=== PATIENT | male | born 1965 | race African-American/Black ===

== ENCOUNTER 2016-06-25 12:25 | Emergency (ER) | payer MEDICAID, MEDICARE ==
[~2016-06-25] VITALS: Ht 180.3 cm; Wt 120.0 kg
[~2016-06-25 12:25] MED LIST: DEXI30CA2 PO; GABA800T PO; HUMA100I SC; LANTUS2P SQ; LANTUSP SQ; METH750T2 PO; METO50TA PO; NAPR-576 PO; NEXI20CA PO; eye gtts
[2016-06-25 12:27] VITALS: BP 184/95; PULSE 72; RESP 24; TEMP 98; O2SAT 98
--- NOTE | 2016-06-27 12:24 | EKG ---
Date Performed: 06/25/2016 Time Performed: 13:01:30 PTAGE: 50 years EKG: Sinus rhythm WITH FIRST DEGREE AV BLOCK BORDERLINE LEFT AXIS DEVIATION LEFT VENTRICULAR HYPERTROPHY AND ST-T [place] GE Since previous tracing, no significant change noted ABNORMAL ECG PREVIOUS TRACING : 04/25/2015 22.15 DOCTOR: Sp Cueva Interpretating Date/Time 06/27/2016 12:22:33
== END 2016-06-25 14:27 | disposition left against medical advice (07) ==
LOC: NED 14:00
DX: I44.0 Atrioventricular block, first degree (principal); I51.7 Cardiomegaly
CPT/HCPCS: 93005; 99281

== ENCOUNTER 2016-07-03 14:04 | Emergency (ER) | payer MEDICARE ==
[~2016-07-03] VITALS: Ht 180.3 cm; Wt 120.5 kg
[2016-07-03 14:07] VITALS: BP 162/91; PULSE 64; RESP 20; TEMP 98.3; O2SAT 99
--- NOTE | 2016-07-03 14:14 | PD ---
HPI Chief Complaint: blood pressure Time Seen by Provider: 14:12 Travel History International Travel<30 days: No Contact w/Intl Traveler<30days: No History of Present Illness HPI 50-year-old male with history of DM, HTN, HLD, CKD, MRSA presents to the ED for evaluation of central, sharp chest pain since 9:30 AM. No alleviating or exacerbating factors reported. Accompanied by nausea with a single episode of vomiting and tingling in bilateral hands. Patient denies diaphoresis, palpitations, shortness of breath. Patient states he feels like his blood sugar and blood pressure are very high. He endorses noncompliance with his Lantus and metoprolol since yesterday morning. PFSH Past Medical History Hx Anticoagulant Therapy: No Arthritis: No Asthma: No Autoimmune Disease: No Blood Disorders: No Heart Rhythm Problems: No Cancer: No Cardiac Catheterization: Yes (2010) Cardiovascular Problems: Yes (HTN) High Cholesterol: Yes Chemotherapy: No Chest Pain: Yes Congestive Heart Failure: No COPD: No Cerebrovascular Accident: No Diabetes: Yes Diminished Hearing: No Endocrine: No Gastrointestinal Disorders: No GERD: Yes Glaucoma: No Genitourinary: No Headaches: No Hypertension: Yes Immune Disorder: No Implanted Vascular Access Dvce: No Kidney Stones: No Musculoskeletal: Yes ("back problems" had MRI 08/21/10) Neurologic: Yes (peripheral neuropathy) Psychiatric: No Reproductive: No Respiratory: No Migraines: No Radiation Therapy: No Renal Failure: No Seizures: No Sickle Cell Disease: No Sleep Apnea: No Thyroid Disease: No Past Surgical History Abdominal Surgery: No AICD: No Arteriovenous Shunt: No Cardiac Surgery: Yes (cardiac catheterization 07/31) Coronary Artery Bypass Graft: No Ear Surgery: No Endocrine Surgery: No Eye Surgery: No Genitourinary Surgery: No Hysterectomy: No Insulin Pump: No Joint Replacement: No Neurologic Surgery: No Oral Surgery: No Pacemaker: No Thoracic Surgery: No Other Surgery: Yes (MASS REMOVED FROM ARM) Social History Alcohol Use: No Tobacco Use: No Substance Use: No Allergies-Medications (Allergen,Severity, Reaction): Coded Allergies: Metformin (Verified Allergy, Severe, nausea and vomiting, 07/03/16) *MDRO Multi-Drug Resistant Organism (Verified Adverse Reaction, Unknown, ) 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 Uncoded Allergies: TETININ (Allergy, Unknown, Rash, 04/25/15) ANTIBIOTIC Reported Meds & Prescriptions Reported Meds & Active Scripts Active Robaxin (Methocarbamol) 750 Mg Tab 750 Mg PO Q8HR PRN Naproxen 500 Mg Tab 500 Mg PO Q12HR PRN Reported Nexium (Esomeprazole Magnesium) Esomeprazole Magnesium 20 mg Cap 20 Mg PO DAILY Dexilant 30 mg (Dexlansoprazole) 30 Mg Cap 30 Mg PO DAILY [eye gtts] Humalog 3 ml vial (Insulin Human Lispro) 100 Units/Ml Inj 5 Units SC DAILYAC Gabapentin 800 Mg Tab 800 Mg PO TID Lantus (Insulin Glargine) 100 Units/Ml Inj 38 Unit SQ HS Metoprolol Tartrate 50 mg (Metoprolol Tartrate) 50 Mg Tab 50 Mg PO BID Lantus (Insulin Glargine) 100 Units/Ml Inj 35 Units SQ DAILY Review of Systems Except as stated in HPI: all other systems reviewed are Neg Physical Exam Narrative GENERAL: Well-nourished, well-developed black male in no acute distress. SKIN: Warm and dry. HEAD: Normocephalic. EYES: No scleral icterus. No injection or drainage. NECK: Supple, trachea midline. No JVD or lymphadenopathy. CARDIOVASCULAR: Regular rate and rhythm without murmurs, gallops, or rubs. 2+ DP and radial pulses bilaterally. RESPIRATORY: Breath sounds clear and equal bilaterally. No accessory muscle use. GASTROINTESTINAL: Abdomen soft, non-tender, nondistended. Active bowel sounds. Some voluntary guarding. MUSCULOSKELETAL: No cyanosis, or edema. NEUROLOGICAL: Awake and alert. Cranial nerves II through XII intact. Motor and sensory grossly within normal limits. 5/5 muscle strength in all muscle groups. Normal speech. BACK: Nontender without obvious deformity. No CVA tenderness. Data Data Last Documented VS Vital Signs Date Time Temp Pulse Resp B/P Pulse Ox O2 Delivery O2 Flow Rate FiO2 07/03/16 15:10 64 21 99 Room Air 07/03/16 15:10 153/85 07/03/16 14:07 98.3 Orders Electrocardiogram (07/03/16 14:22) Basic Metabolic Panel (Bmp) (07/03/16 14:22) Ckmb (Isoenzyme) Profile (07/03/16 14:22) Complete Blood Count With Diff (07/03/16 14:22) Magnesium (Mg) (07/03/16 14:22) Prothrombin Time / Inr (Pt) (07/03/16 14:22) Act Partial Throm Time (Ptt) (07/03/16 14:22) Troponin I (07/03/16 14:22) Chest, Single Ap (07/03/16 14:22) Ecg Monitoring (07/03/16 14:22) Bilateral Bp Monitoring (07/03/16 14:22) Iv Access Insert/Monitor (07/03/16 14:22) Oximetry (07/03/16 14:22) Aspirin Chew (Aspirin Chew) (07/03/16 14:30) Sodium Chloride 0.9% Flush (Ns Flush) (07/03/16 14:30) Blood Glucose (07/03/16 14:22) Urinalysis - C+S If Indicated (07/03/16 16:42) CKMB (07/03/16 16:07) CKMB% (07/03/16 16:07) Labs Laboratory Tests Test 07/03/16 07/03/16 14:33 16:07 White Blood Count 5.8 TH/MM3 Red Blood Count 5.38 MIL/MM3 Hemoglobin 11.8 GM/DL Hematocrit 37.5 % Mean Corpuscular Volume 69.6 FL Mean Corpuscular Hemoglobin 22.0 PG Mean Corpuscular Hemoglobin 31.6 % Concent Red Cell Distribution Width 15.1 % Platelet Count 193 TH/MM3 Mean Platelet Volume 9.5 FL Neutrophils (%) (Auto) 69.6 % Lymphocytes (%) (Auto) 21.7 % Monocytes (%) (Auto) 6.9 % Eosinophils (%) (Auto) 1.3 % Basophils (%) (Auto) 0.5 % Neutrophils # (Auto) 4.0 TH/MM3 Lymphocytes # (Auto) 1.3 TH/MM3 Monocytes # (Auto) 0.4 TH/MM3 Eosinophils # (Auto) 0.1 TH/MM3 Basophils # (Auto) 0.0 TH/MM3 CBC Comment AUTO DIFF Differential Comment AUTO DIFF CONFIRMED Platelet Estimate NORMAL Platelet Morphology Comment NORMAL Red Cell Morphology Comment NORMAL Prothrombin Time 11.2 SEC Prothromb Time International 1.0 RATIO Ratio Activated Partial 30.5 SEC Thromboplast Time Sodium Level 135 MEQ/L Potassium Level 5.1 MEQ/L Chloride Level 102 MEQ/L Carbon Dioxide Level 27.9 MEQ/L Anion Gap 5 MEQ/L Blood Urea Nitrogen 24 MG/DL Creatinine 2.06 MG/DL Estimat Glomerular Filtration 42 ML/MIN Rate Random Glucose 362 MG/DL Calcium Level 8.4 MG/DL Magnesium Level 2.0 MG/DL Total Creatine Kinase 215 U/L Creatine Kinase MB 2.1 NG/ML Troponin I 0.03 NG/ML MDM Medical Decision Making Medical Screen Exam Complete: Yes Emergency Medical Condition: Yes Interpretation(s) EKG rate 61, sinus rhythm. SD 200ms, QRS 112ms, QTC 402ms. Borderline LAD, LVH with ST change. Similar to previous EKG of 06/27/16. Reviewed by Dr. Ureña. Differential Diagnosis Chest pain versus ACS versus hyperglycemia versus electrolyte abnormality versus medication noncompliance versus peripheral neuropathy versus other Narrative Course 50-year-old male with history of DM, HTN, HLD, CKD, MRSA presents to the ED for evaluation of central, sharp chest pain since 9:30 AM. No alleviating or exacerbating factors reported. Accompanied by nausea with a single episode of vomiting and tingling in bilateral hands. Patient denies diaphoresis, palpitations, shortness of breath. Patient states he feels like his blood sugar and blood pressure are very high. Vitals reviewed. The patient is hypertensive on presentation. Physical exam reveals a nontoxic-appearing black male in no acute distress. Her auscultation bilaterally. No appreciable M/R/ G. Equal pulses in bilateral extremities. No focal neural deficits. IV was established. Patient was placed on continuous monitoring. ASA administered. Bedside blood glucose 433. CBC: WBC 5.8. Hemoglobin 11.8. INR 1.0. CMP: recollect at 1620. BUN 24, creatinine 2.06, review of the patient's record reveals this is baseline. Glucose 362. Cardiac enzymes: Negative CXR: No acute disease per radiology read. EKG: As above. Review the patient's record reveals he underwent cardiac catheter in 2010 with normal EF and coronary arteries. Stress test performed 06/05/14, negative. I offered the patient admission to the chest pain center which he declined, stating that he was feeling better and would like to follow up with his body former. I discussed the risks of leaving without serial enzymes and EKGs including SC and . I reinforced the importance of compliance with his medications at home. We discussed reasons to return to the ED. He indicated understanding of the instructions, and is amenable to plan of care. He is stable and discharged home. Diagnosis Primary Impression: Chest pain Qualified Code: R07.9 - Chest pain, unspecified type Additional Impressions: Chronic renal insufficiency Qualified Code: N18.9 - Chronic renal insufficiency, unspecified stage Noncompliance with medication regimen Referrals: [facility] Patient Instructions: Chest Pain (ED), General Instructions Additional Instructions: Rest, hydrate. Take all medications as prescribed. Follow-up with your body former this week as discussed. Return to the ED for any urgent or emergent medical condition. Disposition: 01 DISCHARGE HOME Condition: Stable Bouchra Perez Jul 03, 2016 14:14
[2016-07-03 14:21] VITALS: BP 170/91; PULSE 59; RESP 18; O2SAT 96
[2016-07-03] MEDS ORDERED: SODIUM CHLORIDE 0.9% FLUSH 5 ML FLUSH IVF PRN (14:30)
[2016-07-03] MEDS ORDERED: ASPIRIN 81 MG CHEW TAB PO ONE (14:30)
[2016-07-03 14:32] VITALS: BP 170/91; PULSE 61; RESP 18; O2SAT 99
--- NOTE | 2016-07-03 14:58 | RADRPT ---
EXAM DATE/TIME: 07/03/2016 14:44 [facility] COMPARISON: CHEST SINGLE AP, October 13, 2014, 22:57. INDICATIONS : Chest Pain, Short of Breath, Cough. MEDICAL HISTORY : Myocardial infarction. SURGICAL HISTORY : Coronary artery stent. ENCOUNTER: Initial ACUITY: 1 day PAIN SCORE: 7/10 LOCATION: Bilateral chest FINDINGS: A single view of the chest demonstrates the lungs to be symmetrically aerated without evidence of mas s, infiltrate or effusion. The cardiomediastinal contours are unremarkable. Osseous structures are intact. CONCLUSION: No acute disease. Robson Mcwilliams MD on July 03, 2016 at 14:56 Board Certified Radiologist. This report was verified electronically.
[2016-07-03 15:10] VITALS: BP 153/85; PULSE 64; RESP 21; O2SAT 99
[2016-07-03 15:26] LABS: BASOPHIL % 0.5 % (0.0-2.0); EOSINOPHIL # 0.1 TH/MM3 (0-0.4); EOSINOPHIL % 1.3 % (0.0-4.0); HEMATOCRIT 37.5 % (39.0-51.0); LYMPH % 21.7 % (9.0-44.0); LYMPHOCYTE # 1.3 TH/MM3 (1.0-4.8); MEAN CELL VOLUME 69.6 FL (80.0-100.0); MEAN CORPUSCULAR HGB CONC 31.6 % (32.0-36.0); MONO % 6.9 % (0.0-8.0); NEUT % 69.6 % (16.0-70.0); PLATELET COUNT 193 TH/MM3 (150-450); RED BLOOD COUNT 5.38 MIL/MM3 (4.50-5.90); RED CELL DISTRIBUTION WIDTH 15.1 % (11.6-17.2); WHITE BLOOD COUNT 5.8 TH/MM3 (4.0-11.0)
[2016-07-03 15:28] LABS: HEMO FLAGS AUTO DIFF
[2016-07-03 15:37] LABS: APTT (PATIENT) 30.5 SEC (24.3-30.1); PROTHROMBIN TIME - PATIENT 11.2 SEC (9.8-11.6)
[2016-07-03 16:00] LABS: PLATELET ESTIMATE SMEAR NORMAL (NORMAL); PLATELET MORPHOLOGY NORMAL (NORMAL); SCAN/DIFF AUTO DIFF CONFIRMED
[2016-07-03 16:50] LABS: ANION GAP 5 MEQ/L (5-15); BICARBONATE 27.9 MEQ/L (21.0-32.0); BLOOD UREA NITROGEN 24 MG/DL (7-18); CHLORIDE 102 MEQ/L (98-107); GLOMERULAR FILTRATION RATE 42 ML/MIN (>89); POTASSIUM 5.1 MEQ/L (3.5-5.1); SODIUM (NA) 135 MEQ/L (136-145)
[2016-07-03 16:57] LABS: CREATINE KINASE 215 U/L (39-308)
[2016-07-03 17:10] LABS: CKMB 2.1 NG/ML (0.5-3.6)
[2016-07-03 18:01] VITALS: BP 160/92
--- NOTE | 2016-07-04 12:58 | EKG ---
Date Performed: 07/03/2016 Time Performed: 14:28:20 PTAGE: 50 years EKG: Sinus rhythm BORDERLINE LEFT AXIS DEVIATION LEFT VENTRICULAR HYPERTROPHY AND ST-T CHANGE Compared to prior tracin g no significant change ABNORMAL ECG PREVIOUS TRACING : 06/25/2016 13.01 DOCTOR: Ricki Hastings Interpretating Date/Time 07/04/2016 12:54:53
== END 2016-07-03 18:14 | disposition home or self-care (01) ==
LOC: NEPA 14:04
DX: R07.9 Chest pain, unspecified (principal); N18.9 Chronic kidney disease, unspecified; Z91.14 Patient's other noncompliance with medication regimen; R11.2 Nausea with vomiting, unspecified; R20.2 Paresthesia of skin; E78.00 Pure hypercholesterolemia, unspecified; I10 Essential (primary) hypertension; R94.31 Abnormal electrocardiogram [ECG] [EKG]; E11.22 Type 2 diabetes mellitus with diabetic chronic kidney disease
CPT/HCPCS: 71010; 80048; 82550; 82552; 83735; 84484; 85025; 85610; 85730; 93005

== ENCOUNTER 2017-04-12 16:56 | Emergency (ER) | payer MEDICARE ==
[~2017-04-12] VITALS: Ht 180.3 cm; Wt 129.2 kg
[~2017-04-12 16:56] MED LIST changes: +AMLO10TA2 PO; +ATOR20TA15 PO; +BLOOD GLUCOSE T1 TES; +CHLO25TA2 PO; -DEXI30CA2 PO; +GABA300C5 PO; -GABA800T PO; -HUMA100I SC; +HUMA100I3 SQ; +INSU1INJ5 SQ; +LANCETS1 MI1; -LANTUS2P SQ; -LANTUSP SQ; +LEVOTAB PO; +LORA1TAB12 PO; -METH750T2 PO; +METO1TAB9 PO; -METO50TA PO; -NAPR-576 PO; -NEXI20CA PO; +PANT40TA3 PO; +TRAM50TA PO; +VITA500012 PO
[2017-04-12 17:05] VITALS: BP 172/82; PULSE 73; RESP 16; TEMP 98.4; O2SAT 99
[2017-04-12 17:20] LABS: BLOOD, URINE SMALL (NEG); GLUCOSE,URINE NEG (NEG); KETONE, URINE NEG (NEG); NITRITE,URINE NEG (NEG); PH, URINE 5.5 (5.0-8.5)
[2017-04-12 17:25] LABS: METHOD OF COLLECTION CLEAN CATCH; URINE COLOR YELLOW (YELLW/STRAW)
[2017-04-12 17:26] LABS: COMMENT (UR) CULT NOT INDICATED; CULTURE IF INDICATED CULT NOT INDICATED; SQUAMOUS EPITHELIAL CELL URINE 0-5 /hpf (0-5)
--- NOTE | 2017-04-12 17:38 | PD ---
HPI Chief Complaint: Abdominal Pain Time Seen by Provider: 17:25 Travel History International Travel<30 days: No Contact w/Intl Traveler<30days: No Traveled to known affect area: No History of Present Illness HPI 51-year-old male with history of diabetes, hypertension, hypercholesterolemia, here for evaluation of abdominal pain, back pain, neck pain, chest pain. Patient reports that the pain has been going on for the last 2 weeks. He is unable to describe the pain. Pain is moderate, constant, no modifying factors. He denies paresthesias or motor deficits. He denies history of coronary artery disease. States that he had a cardiac catheterization 2 months ago at [facility] and reports that his coronary arteries are free of disease. No history of abdominal surgeries. No trauma. PFSH Past Medical History Hx Anticoagulant Therapy: No Arthritis: No Asthma: No Autoimmune Disease: No Blood Disorders: No Heart Rhythm Problems: No Cancer: No Cardiac Catheterization: Yes (2010) Cardiovascular Problems: Yes (HTN) High Cholesterol: Yes Chemotherapy: No Chest Pain: Yes Congestive Heart Failure: No COPD: No Cerebrovascular Accident: No Diabetes: Yes Patient Takes Glucophage: No Diminished Hearing: No Endocrine: No Gastrointestinal Disorders: No GERD: Yes Glaucoma: No Genitourinary: No Headaches: No Heparin Induced Thrombocytopen: No Hypertension: Yes Immune Disorder: No Implanted Vascular Access Dvce: No Kidney Stones: No Musculoskeletal: Yes ("back problems" had MRI 08/21/10) Neurologic: Yes (peripheral neuropathy) Psychiatric: No Reproductive: No Respiratory: No Migraines: No Radiation Therapy: No Renal Failure: No Seizures: No Sickle Cell Disease: No Sleep Apnea: No Thyroid Disease: No Tetanus Vaccination: Unknown Past Surgical History Abdominal Surgery: No AICD: No Arteriovenous Shunt: No Cardiac Surgery: Yes (cardiac catheterization 07/31) Coronary Artery Bypass Graft: No Ear Surgery: No Endocrine Surgery: No Eye Surgery: No Genitourinary Surgery: No Hysterectomy: No Insulin Pump: No Joint Replacement: No Neurologic Surgery: No Oral Surgery: No Pacemaker: No Thoracic Surgery: No Other Surgery: Yes (MASS REMOVED FROM ARM) Family History Family Myocardial Infarction: No Social History Alcohol Use: No Tobacco Use: No Substance Use: No Allergies-Medications (Allergen,Severity, Reaction): Coded Allergies: metformin (Verified Allergy, Severe, nausea and vomiting, 04/12/17) *MDRO Multi-Drug Resistant Organism (Verified Adverse Reaction, Unknown, 04/12/17) 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 Uncoded Allergies: TETININ (Allergy, Unknown, Rash, 04/25/15) ANTIBIOTIC Reported Meds & Prescriptions Reported Meds & Active Scripts Active Blood Glucose Test Strips Strips Strip Ea .XX ACHS Lancets 1 Mis Mis Box .XX ACHS Levemir Flextouch Pen Inj (Insulin Detemir) 300 unit/3 ML Pen 32 Units SQ BID 30 Days Chlorthalidone 25 Mg Tab 25 Mg PO DAILY Amlodipine (Amlodipine Besylate) 10 Mg Tab 10 Mg PO DAILY Gabapentin 300 Mg Cap 300 Mg PO BID Metoprolol Succinate ER 24 HR (Metoprolol Succinate) 50 Mg Tab 50 Mg PO HS Atorvastatin (Atorvastatin Calcium) 20 Mg Tab 20 Mg PO HS Ergocalciferol 50,000 Unit Cap 50,000 Units PO Q7D Levocetirizine 5 Mg Tab 5 Mg PO DAILY Humalog Kwikpen Pen Inj (Insulin Lispro (Human) Inj) 300 Unit/3 Ml Pen 12 Units SQ ACHS 30 Days Pantoprazole (Pantoprazole Sodium) 40 Mg Tab 40 Mg PO DAILY Reported Tramadol (Tramadol HCl) 50 Mg Tab 50 Mg PO Q4H PRN Review of Systems Except as stated in HPI: all other systems reviewed are Neg Physical Exam Narrative GENERAL: Well-developed, well-nourished, comfortable, no apparent distress. Ambulated to the restroom without difficulty and without assistance. SKIN: Focused skin assessment warm/dry. HEAD: Atraumatic. Normocephalic. EYES: Pupils equal and round. No scleral icterus. No injection or drainage. ENT: Mucous membranes pink and moist. NECK: Trachea midline. No JVD. CARDIOVASCULAR: Regular rate and rhythm. Distal pulses brisk and equal bilaterally. RESPIRATORY: No accessory muscle use. Clear to auscultation. Breath sounds equal bilaterally. GASTROINTESTINAL: Abdomen soft, non-tender, nondistended. MUSCULOSKELETAL: No obvious deformities. No clubbing. No cyanosis. No edema. NEUROLOGICAL: Awake and alert. No obvious cranial nerve deficits. Motor grossly within normal limits. Normal speech. PSYCHIATRIC: Appropriate mood and affect; insight and judgment normal. Data Data Last Documented VS Vital Signs Date Time Temp Pulse Resp B/P (MAP) Pulse Ox O2 Delivery O2 Flow Rate FiO2 04/12/17 19:08 78 16 166/96 (119) 99 Nasal Cannula 2.00 04/12/17 17:05 98.4 Orders Orders Urinalysis - C+S If Indicated (04/12/17 17:08) Ckmb (Isoenzyme) Profile (04/12/17 17:32) Complete Blood Count With Diff (04/12/17 17:32) Comprehensive Metabolic Panel (04/12/17 17:32) Magnesium (Mg) (04/12/17 17:32) Prothrombin Time / Inr (Pt) (04/12/17 17:32) Act Partial Throm Time (Ptt) (04/12/17 17:32) Troponin I (04/12/17 17:32) Chest, Single Ap (04/12/17 17:32) Ecg Monitoring (04/12/17 17:32) Bilateral Bp Monitoring (04/12/17 17:32) Iv Access Insert/Monitor (04/12/17 17:32) Oximetry (04/12/17 17:32) Oxygen Administration (04/12/17 17:32) Sodium Chloride 0.9% Flush (Ns Flush) (04/12/17 17:45) CKMB (04/12/17 17:35) CKMB% (04/12/17 17:35) Tramadol (Ultram) (04/12/17 18:30) Labs Laboratory Tests Test 04/12/17 17:12 04/12/17 17:35 Urine Collection Type CLEAN CATCH Urine Color YELLOW Urine Turbidity CLEAR Urine pH 5.5 Urine Specific [place] 1.015 Urine Protein 30 mg/dL Urine Glucose (UA) NEG mg/dL Urine Ketones NEG mg/dL Urine Occult Blood SMALL Urine Nitrite NEG Urine Bilirubin NEG Urine Leukocyte Esterase NEG Urine RBC 4-9 /hpf Urine Squamous Epithelial Cells 0-5 /hpf Microscopic Urinalysis Comment CULT NOT INDICATED Urine Collection Time 17:12 White Blood Count 6.7 TH/MM3 Red Blood Count 5.32 MIL/MM3 Hemoglobin 11.6 GM/DL Hematocrit 37.6 % Mean Corpuscular Volume 70.7 FL Mean Corpuscular Hemoglobin 21.8 PG Mean Corpuscular Hemoglobin Concent 30.8 % Red Cell Distribution Width 14.5 % Platelet Count 233 TH/MM3 Mean Platelet Volume 8.6 FL Neutrophils (%) (Auto) 69.5 % Lymphocytes (%) (Auto) 23.4 % Monocytes (%) (Auto) 5.0 % Eosinophils (%) (Auto) 1.5 % Basophils (%) (Auto) 0.6 % Neutrophils # (Auto) 4.7 TH/MM3 Lymphocytes # (Auto) 1.6 TH/MM3 Monocytes # (Auto) 0.3 TH/MM3 Eosinophils # (Auto) 0.1 TH/MM3 Basophils # (Auto) 0.0 TH/MM3 CBC Comment DIFF FINAL Differential Comment Prothrombin Time 11.2 SEC Prothromb Time International Ratio 1.0 RATIO Activated Partial Thromboplast Time 31.8 SEC Blood Urea Nitrogen 33 MG/DL Creatinine 2.10 MG/DL Random Glucose 181 MG/DL Total Protein 7.5 GM/DL Albumin 3.3 GM/DL Calcium Level 8.2 MG/DL Magnesium Level 2.2 MG/DL Alkaline Phosphatase 91 U/L Aspartate Amino Transf (AST/SGOT) 15 U/L Alanine Aminotransferase (ALT/SGPT) 23 U/L Total Bilirubin 0.2 MG/DL Sodium Level 140 MEQ/L Potassium Level 4.2 MEQ/L Chloride Level 108 MEQ/L Carbon Dioxide Level 25.3 MEQ/L Anion Gap 7 MEQ/L Estimat Glomerular Filtration Rate 41 ML/MIN Total Creatine Kinase 246 U/L Creatine Kinase MB 3.2 NG/ML Troponin I 0.03 NG/ML [facility] Medical Decision Making Medical Screen Exam Complete: Yes Emergency Medical Condition: Yes Medical Record Reviewed: Yes Interpretation(s) EKG: Sinus, rate 72, leftward axis, LVH, no acute ischemic abnormality. Differential Diagnosis Dissection, ACS, musculoskeletal pain, Narrative Course Vital signs reviewed. CBC: WBC 6.7, hemoglobin 11.6, hematocrit 37.6, platelets 233. CMP is remarkable for BUN 33, creatinine 2.1, GFR 41 which is around his baseline. Troponin is 0.03 which is around his baseline is likely secondary to chronic renal insufficiency. UA shows small occult blood, 49 RBCs, 30 protein. I was contacted by the computer technician who spoke with the on-call radiologist was recommending MRI instead of CT because of the patient's GFR. Patient was made aware of this. 7:50 PM: The patient has me that he no longer wishes to wait for MRI. He states that he has an MRI ordered by his primary care physician in the upcoming weeks. I explained to him that I am concerned for possible aortic dissection and that this could be fatal if not treated correctly. He understands. He has the capacity to leave AMA. He understands that there are risks of leaving AMA including but not limited to and permanent disability. He was told that he could return to the emergency department at any time and should return for any concerning symptoms. He was also advised to follow-up with his primary care physician in the next 1-2 days. He was informed on when to return to the emergency Department sooner. He verbalizes understanding and agreement with plan. AMA: The risks of leaving against medical advice without further evaluation treatment were discussed with the patient. These risks include cardiac dysfunction, cardiac dysrhythmia, possible heart attack, possible stroke or . The patient indicated understanding of these risks and appeared to have the capacity to make this decision. Diagnosis Primary Impression: Left against medical advice Additional Impressions: Back pain Qualified Codes: M54.9 - Dorsalgia, unspecified Neck pain Abdominal pain Qualified Codes: R10.9 - Unspecified abdominal pain Microscopic hematuria Referrals: Primary Care Physician 1 day Additional Instructions: Follow-up with your primary care physician in the next 1-2 days. Return to the emergency department for worsening symptoms or any other concerns. Disposition: 07 AGAINST MEDICAL ADVICE Condition: Stable Regan Forde MD Apr 12, 2017 17:38
[2017-04-12] MEDS ORDERED: SODIUM CHLORIDE 0.9% FLUSH 10 ML FLUSH IVF PRN (17:45)
[2017-04-12 17:50] LABS: AUTOMATED NEUTROPHIL # 4.7 TH/MM3 (1.8-7.7); BASOPHIL % 0.6 % (0.0-2.0); EOSINOPHIL # 0.1 TH/MM3 (0-0.4); EOSINOPHIL % 1.5 % (0.0-4.0); HEMATOCRIT 37.6 % (39.0-51.0); LYMPH % 23.4 % (9.0-44.0); LYMPHOCYTE # 1.6 TH/MM3 (1.0-4.8); MEAN CELL VOLUME 70.7 FL (80.0-100.0); MEAN CORPUSCULAR HEMOGLOBIN 21.8 PG (27.0-34.0); MEAN CORPUSCULAR HGB CONC 30.8 % (32.0-36.0); NEUT % 69.5 % (16.0-70.0); PLATELET COUNT 233 TH/MM3 (150-450); RED BLOOD COUNT 5.32 MIL/MM3 (4.50-5.90); RED CELL DISTRIBUTION WIDTH 14.5 % (11.6-17.2); WHITE BLOOD COUNT 6.7 TH/MM3 (4.0-11.0)
[2017-04-12 17:55] VITALS: RESP 16; O2SAT 98
[2017-04-12 17:56] VITALS: BP_SYST 183; BP_SYST 208; BP_DIAS 101; BP_DIAS 99; PULSE 71; RESP 16; O2SAT 100
[2017-04-12 17:56] LABS: CHLORIDE 108 MEQ/L (98-107); POTASSIUM 4.2 MEQ/L (3.5-5.1); SODIUM (NA) 140 MEQ/L (136-145)
[2017-04-12 18:00] LABS: ANION GAP 7 MEQ/L (5-15); BICARBONATE 25.3 MEQ/L (21.0-32.0); BLOOD UREA NITROGEN 33 MG/DL (7-18); MAGNESIUM 2.2 MG/DL (1.5-2.5)
[2017-04-12 18:02] LABS: APTT (PATIENT) 31.8 SEC (24.3-30.1); PROTHROMBIN TIME - PATIENT 11.2 SEC (9.8-11.6)
[2017-04-12 18:03] LABS: ALT (GPT) 23 U/L (12-78); AST (GOT) 15 U/L (15-37); GLOMERULAR FILTRATION RATE 41 ML/MIN (>89)
[2017-04-12 18:05] LABS: TOTAL BILIRUBIN ADULT 0.2 MG/DL (0.2-1.0)
[2017-04-12 18:06] LABS: ALKALINE PHOSPHATASE 91 U/L (45-117); CREATINE KINASE 246 U/L (39-308)
[2017-04-12 18:12] LABS: HEMO FLAGS DIFF FINAL
[2017-04-12 18:18] LABS: CKMB 3.2 NG/ML (0.5-3.6)
--- NOTE | 2017-04-12 18:23 | RADRPT ---
EXAM DATE/TIME: 04/12/2017 18:08 [facility] COMPARISON: CHEST SINGLE AP, July 03, 2016, 14:44. INDICATIONS : Epigastric pain on and off for several weeks. MEDICAL HISTORY : Hypertension. Gastroesophageal reflux disease. Diabetes. Peripheral neuropathy. SURGICAL HISTORY : None. ENCOUNTER: Initial ACUITY: 3 weeks PAIN SCORE: 7/10 LOCATION: Bilateral chest FINDINGS: A single view of the chest demonstrates the lungs to be symmetrically aerated without evidence of mas s, infiltrate or effusion. The cardiomediastinal contours are unremarkable. Osseous structures are intact. CONCLUSION: No acute disease. Caio Majano Jr., MD on April 12, 2017 at 18:21 Board Certified Radiologist. This report was verified electronically.
[2017-04-12] MEDS ORDERED: traMADol HCL 50 MG TAB PO ONE (18:30)
[2017-04-12 19:08] VITALS: BP 166/96; PULSE 78; RESP 16; O2SAT 99
--- NOTE | 2017-04-13 09:48 | EKG ---
Date Performed: 04/12/2017 Time Performed: 17:25:22 PTAGE: 51 years EKG: Sinus rhythm BORDERLINE LEFT AXIS DEVIATION LEFT VENTRICULAR HYPERTROPHY AND ST-T CHANGE ABNORMAL ECG PREVIOUS TRACING : 07/03/2016 14.28 DOCTOR: Joseph Martinez Interpretating Date/Time 04/13/2017 09:46:56
[2017-04-18] MEDS ORDERED: BLOOD GLUCOSE T1 TES (10:11)
[2017-04-18] MEDS ORDERED: LANCETS1 MI1 (10:11)
[2017-04-18] MEDS ORDERED: BLOOD GLUCOSE M1 KIT (10:11)
[2017-04-18] MEDS ORDERED: RANI150T PO (10:32)
[2017-04-20] MEDS ORDERED: HUMA100I3 SQ (17:04)
[2017-04-20] MEDS ORDERED: INSU1INJ5 SQ (17:04)
== END 2017-04-12 20:11 | disposition left against medical advice (07) ==
LOC: PHED 16:56
DX: M54.2 Cervicalgia (principal); R31.29 Other microscopic hematuria; R07.9 Chest pain, unspecified; E11.9 Type 2 diabetes mellitus without complications; E78.00 Pure hypercholesterolemia, unspecified; I10 Essential (primary) hypertension; Z79.4 Long term (current) use of insulin; Z79.899 Other long term (current) drug therapy
CPT/HCPCS: 71010; 80053; 81001; 82550; 82552; 83735; 84484; 85025; 85610; 85730; 93005; 99285

== ENCOUNTER 2017-04-25 14:30 | Emergency (ER) | payer MEDICARE ==
[~2017-04-25 14:30] MED LIST changes: +BLOOD GLUCOSE M1 KIT; -LORA1TAB12 PO; +RANI150T PO; -eye gtts
[2017-04-25 14:58] VITALS: BP 190/110; PULSE 75; RESP 20; TEMP 98.4; O2SAT 100
[2017-04-25] MEDS ORDERED: ASPIRIN 81 MG CHEW TAB CHEW ONE (15:15)
[2017-04-25] MEDS ORDERED: SODIUM CHLORIDE 0.9% FLUSH 10 ML FLUSH IVF PRN (15:30)
[2017-04-25] MEDS ORDERED: MORPHINE SULFATE 4 MG/ML INJ IV PUSH ONE (15:30)
[2017-04-25] MEDS ORDERED: NITROGLYCERIN 2% OINT 1 GM PACKET TOP ONE (15:30)
[2017-04-25] MEDS ORDERED: ONDANSETRON HCL 4 MG/2 ML VIAL IV PUSH ONE (15:30)
[2017-04-25 15:38] VITALS: O2SAT 97
--- NOTE | 2017-04-25 15:45 | PD ---
HPI . Chest pain Chief Complaint: Chest Pain Time Seen by Provider: 14:47 Travel History International Travel<30 days: No Contact w/Intl Traveler<30days: No Traveled to known affect area: No History of Present Illness HPI Patient presents with a chief complaint of chest pain. It is located in the left side of the chest and is associated with left arm and left leg pain. I asked him when this started he states "it's been hurting." He states that it was worse today. He states that the pain comes and goes. When asked to describe the quality of the pain he states that it is "excruciating." Severity is 10/10. He reports no modifiers. He reports shortness of breath, daily nausea and vomiting and diaphoresis. PFSH Past Medical History Hx Anticoagulant Therapy: No Arthritis: No Asthma: No Autoimmune Disease: No Blood Disorders: No Heart Rhythm Problems: No Cancer: No Cardiac Catheterization: Yes (2010) Cardiovascular Problems: Yes (HTN) High Cholesterol: Yes Chemotherapy: No Chest Pain: Yes Congestive Heart Failure: No COPD: No Cerebrovascular Accident: No Diabetes: Yes Patient Takes Glucophage: No Diminished Hearing: No Endocrine: No Gastrointestinal Disorders: No GERD: Yes Glaucoma: No Genitourinary: No Headaches: No Heparin Induced Thrombocytopen: No Hypertension: Yes Immune Disorder: No Implanted Vascular Access Dvce: No Kidney Stones: No Musculoskeletal: Yes ("back problems" had MRI 08/21/10) Neurologic: Yes (peripheral neuropathy) Psychiatric: No Reproductive: No Respiratory: No Migraines: No Radiation Therapy: No Renal Failure: No Seizures: No Sickle Cell Disease: No Sleep Apnea: No Thyroid Disease: No Tetanus Vaccination: Unknown Influenza Vaccination: Yes ?: Not Past Surgical History Abdominal Surgery: No AICD: No Arteriovenous Shunt: No Cardiac Surgery: Yes (cardiac catheterization 07/31) Coronary Artery Bypass Graft: No Ear Surgery: No Endocrine Surgery: No Eye Surgery: No Genitourinary Surgery: No Hysterectomy: No Insulin Pump: No Joint Replacement: No Neurologic Surgery: No Oral Surgery: No Pacemaker: No Thoracic Surgery: No Other Surgery: Yes (MASS REMOVED FROM ARM) Social History Alcohol Use: No Tobacco Use: No Substance Use: No Allergies-Medications (Allergen,Severity, Reaction): Coded Allergies: metformin (Verified Allergy, Severe, nausea and vomiting, 04/18/17) *MDRO Multi-Drug Resistant Organism (Verified Adverse Reaction, Unknown, 04/18/17) 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 Uncoded Allergies: TETININ (Allergy, Unknown, Rash, 04/25/15) ANTIBIOTIC Reported Meds & Prescriptions Reported Meds & Active Scripts Active Levemir Flextouch Pen Inj (Insulin Detemir) 300 unit/3 ML Pen 32 Units SQ BID 30 Days Humalog Kwikpen Pen Inj (Insulin Lispro (Human) Inj) 300 Unit/3 Ml Pen 12 Units SQ ACHS 30 Days Ranitidine (Ranitidine HCl) 150 Mg Tab 150 Mg PO HS Blood Glucose Monitoring W/Device (Device) 1 Kit Kit Kit .XX DIRECTED Blood Glucose Test Strips Strips Strip Ea .XX ACHS Lancets 1 Mis Mis Box .XX ACHS Chlorthalidone 25 Mg Tab 25 Mg PO DAILY Amlodipine (Amlodipine Besylate) 10 Mg Tab 10 Mg PO DAILY Gabapentin 300 Mg Cap 300 Mg PO BID Metoprolol Succinate ER 24 HR (Metoprolol Succinate) 50 Mg Tab 50 Mg PO HS Atorvastatin (Atorvastatin Calcium) 20 Mg Tab 20 Mg PO HS Ergocalciferol 50,000 Unit Cap 50,000 Units PO Q7D Levocetirizine 5 Mg Tab 5 Mg PO DAILY Pantoprazole (Pantoprazole Sodium) 40 Mg Tab 40 Mg PO DAILY Reported Tramadol (Tramadol HCl) 50 Mg Tab 50 Mg PO Q4H PRN Review of Systems Except as stated in HPI: all other systems reviewed are Neg General / Constitutional: Positive: Other (diaphoresis) Cardiovascular: Positive: Chest Pain or Discomfort Respiratory: Positive: Shortness of Breath Gastrointestinal: Positive: Nausea Physical Exam Narrative GENERAL: Patient is awake and alert and does not appear to be in any distress. SKIN: warm/dry. HEAD: Normocephalic. Atraumatic. EYES: Pupils equal and round. No scleral icterus. No injection or drainage. ENT: No nasal bleeding or discharge. Mucous membranes pink and moist. NECK: Trachea midline. Full range of motion without pain.. CARDIOVASCULAR: Regular rate and rhythm. Heart sounds are normal. RESPIRATORY: No accessory muscle use. Clear to auscultation. Breath sounds equal bilaterally. Chest wall is nontender to palpation. GASTROINTESTINAL: Abdomen soft. Nontender. Bowel sounds present. Nondistended. : MUSCULOSKELETAL: No obvious deformities. No edema and no calf tenderness. NEUROLOGICAL: Awake and alert. No obvious cranial nerve deficits. Motor grossly within normal limits. Normal speech. PSYCHIATRIC: Appropriate mood and affect; insight and judgment normal. Data Data Last Documented VS Vital Signs Date Time Temp Pulse Resp B/P (MAP) Pulse Ox O2 Delivery O2 Flow Rate FiO2 04/25/17 16:10 65 16 140/89 (106) 100 Room Air 04/25/17 14:58 98.4 Orders Orders Electrocardiogram (04/25/17 14:40) Aspirin Chew (Aspirin Chew) (04/25/17 15:15) Basic Metabolic Panel (Bmp) (04/25/17 15:23) Complete Blood Count With Diff (04/25/17 15:23) Magnesium (Mg) (04/25/17 15:23) Troponin I (04/25/17 15:23) Chest, Single Ap (04/25/17 15:23) Ecg Monitoring (04/25/17 15:23) Iv Access Insert/Monitor (04/25/17 15:23) Oximetry (04/25/17 15:23) Morphine Inj (Morphine Inj) (04/25/17 15:30) Nitroglycerin 2% Oint (Nitroglycerin 2% (04/25/17 15:30) Sodium Chloride 0.9% Flush (Ns Flush) (04/25/17 15:30) Ondansetron Inj (Zofran Inj) (04/25/17 15:30) Labs Laboratory Tests Test 04/25/17 15:35 White Blood Count 6.1 TH/MM3 Red Blood Count 5.54 MIL/MM3 Hemoglobin 12.1 GM/DL Hematocrit 38.9 % Mean Corpuscular Volume 70.3 FL Mean Corpuscular Hemoglobin 21.8 PG Mean Corpuscular Hemoglobin Concent 31.0 % Red Cell Distribution Width 13.9 % Platelet Count 219 TH/MM3 Mean Platelet Volume 8.8 FL Neutrophils (%) (Auto) 68.0 % Lymphocytes (%) (Auto) 20.9 % Monocytes (%) (Auto) 9.1 % Eosinophils (%) (Auto) 1.7 % Basophils (%) (Auto) 0.3 % Neutrophils # (Auto) 4.1 TH/MM3 Lymphocytes # (Auto) 1.3 TH/MM3 Monocytes # (Auto) 0.6 TH/MM3 Eosinophils # (Auto) 0.1 TH/MM3 Basophils # (Auto) 0.0 TH/MM3 CBC Comment AUTO DIFF Differential Comment AUTO DIFF CONFIRMED Tear Drop Cells 1+ Ovalocytes 1+ Blood Urea Nitrogen 36 MG/DL Creatinine 2.40 MG/DL Random Glucose 172 MG/DL Calcium Level 8.9 MG/DL Magnesium Level 2.4 MG/DL Sodium Level 139 MEQ/L Potassium Level 5.3 MEQ/L Chloride Level 106 MEQ/L Carbon Dioxide Level 26.7 MEQ/L Anion Gap 6 MEQ/L Estimat Glomerular Filtration Rate 35 ML/MIN Troponin I 0.03 NG/ML MDM Medical Decision Making Medical Screen Exam Complete: Yes Emergency Medical Condition: Yes Medical Record Reviewed: Yes (in 2014 the patient had a negative Lexiscan stress test. His ejection fraction by myocardial perfusion scan was estimated at 48%.) Interpretation(s) EKG shows a sinus rhythm with no ST segment elevation or depression. Differential Diagnosis Differential diagnosis of chest pain includes but is not limited to musculoskeletal pain, pulmonary embolism, acute coronary syndrome, pneumonia, pleurisy Narrative Course Patient presented with chief complaint of chest pain. This is not a new problem for him. I discussed initial evaluation in the emergency department with subsequent admission to the chest pain center. The patient reports a negative cardiac catheterization done this summer at [facility]. He is not really interested in admission chest pain center. CBC & BMP Diagram 04/25/17 15:35 Calcium Level 8.9, Magnesium Level 2.4 trop 0.03 His labs are not appreciably changed from previous. Last Impressions Chest X-Ray 04/25/17 1523 Signed Impressions: Service Date/Time: Tuesday, April 25, 2017 15:33 - CONCLUSION: Mildly enlarged cardiac silhouette. Otherwise, no acute finding is identified. Jameson Guerra MD This patient has ongoing chest pain. No acute problem has been identified today. He has had a recent cardiac catheterization which is reportedly normal per the patient. I will discharge him to home. Diagnosis Primary Impression: Chest pain Qualified Codes: R07.9 - Chest pain, unspecified Patient Instructions: Chest Pain (DC), General Instructions Disposition: 01 DISCHARGE HOME Condition: Stable Elsi Buckner MD Apr 25, 2017 15:45
--- NOTE | 2017-04-25 15:51 | RADRPT ---
EXAM DATE/TIME: 04/25/2017 15:33 [facility] COMPARISON: CHEST PA & LAT, April 25, 2015, 23:10. CHEST SINGLE AP, July 03, 2016, 14:44. CHEST SINGLE A P, April 12, 2017, 18:08. INDICATIONS : Chest pain. MEDICAL HISTORY : Hypertension. Gastroesophageal reflux disease. Diabetes. Peripheral neuropathy. SURGICAL HISTORY : Cardiac catheterization. ENCOUNTER: Initial ACUITY: 2 weeks PAIN SCORE: 4/10 LOCATION: Bilateral chest FINDINGS: Portable AP view of the chest demonstrates a mildly enlarged cardiac silhouette, stable from the prio r study. No effusion, consolidation, or pneumothorax is present. The bones and soft tissues demonstra te no acute finding. CONCLUSION: Mildly enlarged cardiac silhouette. Otherwise, no acute finding is identified. Jameson Guerra MD on April 25, 2017 at 15:45 Board Certified Radiologist. This report was verified electronically.
[2017-04-25 15:57] LABS: AUTOMATED NEUTROPHIL # 4.1 TH/MM3 (1.8-7.7); BASOPHIL % 0.3 % (0.0-2.0); EOSINOPHIL # 0.1 TH/MM3 (0-0.4); EOSINOPHIL % 1.7 % (0.0-4.0); HEMATOCRIT 38.9 % (39.0-51.0); LYMPH % 20.9 % (9.0-44.0); LYMPHOCYTE # 1.3 TH/MM3 (1.0-4.8); MEAN CELL VOLUME 70.3 FL (80.0-100.0); MEAN CORPUSCULAR HEMOGLOBIN 21.8 PG (27.0-34.0); MONO % 9.1 % (0.0-8.0); PLATELET COUNT 219 TH/MM3 (150-450); RED BLOOD COUNT 5.54 MIL/MM3 (4.50-5.90); RED CELL DISTRIBUTION WIDTH 13.9 % (11.6-17.2); WHITE BLOOD COUNT 6.1 TH/MM3 (4.0-11.0)
[2017-04-25 16:01] LABS: HEMO FLAGS AUTO DIFF
[2017-04-25 16:06] LABS: BICARBONATE 26.7 MEQ/L (21.0-32.0); MAGNESIUM 2.4 MG/DL (1.5-2.5)
[2017-04-25 16:10] VITALS: BP 140/89; PULSE 65; RESP 16; O2SAT 100
[2017-04-25 16:20] LABS: POTASSIUM 5.3 MEQ/L (3.5-5.1)
[2017-04-25 16:44] LABS: OVALOCYTES 1+ (NORMAL); SCAN/DIFF AUTO DIFF CONFIRMED; TEARDROP RBCS 1+ (NORMAL)
[2017-04-25 17:12] VITALS: BP 148/87; PULSE 68; RESP 16; O2SAT 100
--- NOTE | 2017-04-26 14:34 | EKG ---
Date Performed: 04/25/2017 Time Performed: 14:40:34 PTAGE: 51 years EKG: Sinus rhythm BORDERLINE LEFT AXIS DEVIATION LEFT VENTRICULAR HYPERTROPHY AND ST-T CHANGE ABNORMAL ECG Compared to prior tracing no significant change PREVIOUS TRACING : 04/12/2017 17.25 DOCTOR: Angella Jeronimo Interpretating Date/Time 04/26/2017 14:29:04
== END 2017-04-25 17:30 | disposition home or self-care (01) ==
LOC: PHED 14:30
DX: R07.9 Chest pain, unspecified (principal); E11.9 Type 2 diabetes mellitus without complications; E78.00 Pure hypercholesterolemia, unspecified; I10 Essential (primary) hypertension; Z79.4 Long term (current) use of insulin; Z79.899 Other long term (current) drug therapy
CPT/HCPCS: 71010; 80048; 83735; 84484; 85025; 93005; 96374; 96375; 99285; J2270; J2405

== ENCOUNTER 2017-04-30 16:39 | Emergency (ER) | payer MEDICARE ==
[~2017-04-30] VITALS: Ht 180.3 cm; Wt 133.5 kg
[2017-04-30 17:06] VITALS: BP 164/88; PULSE 76; RESP 16; TEMP 98.9; O2SAT 97
[2017-04-30] MEDS ORDERED: CLIN300C5 PO (18:01)
--- NOTE | 2017-04-30 18:04 | PD ---
HPI Chief Complaint: Skin Problem Time Seen by Provider: 17:24 Travel History International Travel<30 days: No Contact w/Intl Traveler<30days: No Traveled to known affect area: No History of Present Illness HPI 51-year-old male with small wound to the right great toe caused by a shoe rubbing on the area. Wound has been present for 2 weeks. He reports increasing pain over the last several days. He denies fever or chills. Symptoms severity is mild. PFSH Past Medical History Hx Anticoagulant Therapy: No Arthritis: No Asthma: No Autoimmune Disease: No Blood Disorders: No Heart Rhythm Problems: No Cancer: No Cardiac Catheterization: Yes (2010) Cardiovascular Problems: Yes (htn on meds) High Cholesterol: Yes Chemotherapy: No Chest Pain: Yes Congestive Heart Failure: No COPD: No Cerebrovascular Accident: No Diabetes: Yes (type 2) Patient Takes Glucophage: No Diminished Hearing: No Endocrine: No Gastrointestinal Disorders: No GERD: Yes Glaucoma: No Genitourinary: No Headaches: No Heparin Induced Thrombocytopen: No Hypertension: Yes Immune Disorder: No Implanted Vascular Access Dvce: No Kidney Stones: No Musculoskeletal: Yes ("back problems" had MRI 08/21/10) Neurologic: Yes (peripheral neuropathy) Psychiatric: No Reproductive: No Respiratory: No Migraines: No Radiation Therapy: No Renal Failure: No Seizures: No Sickle Cell Disease: No Sleep Apnea: No Thyroid Disease: No Tetanus Vaccination: Unknown Influenza Vaccination: Yes Past Surgical History Abdominal Surgery: No AICD: No Arteriovenous Shunt: No Cardiac Surgery: Yes (cardiac catheterization 07/31) Coronary Artery Bypass Graft: No Ear Surgery: No Endocrine Surgery: No Eye Surgery: No Genitourinary Surgery: No Hysterectomy: No Insulin Pump: No Joint Replacement: No Neurologic Surgery: No Oral Surgery: No Pacemaker: No Thoracic Surgery: No Other Surgery: Yes (MASS REMOVED FROM ARM) Social History Alcohol Use: No Tobacco Use: No Substance Use: No Allergies-Medications (Allergen,Severity, Reaction): Coded Allergies: metformin (Verified Allergy, Severe, nausea and vomiting, 04/30/17) *MDRO Multi-Drug Resistant Organism (Verified Adverse Reaction, Unknown, 04/30/17) 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 Uncoded Allergies: TETININ (Allergy, Unknown, Rash, 04/30/17) .ANTIBIOTIC Reported Meds & Prescriptions Reported Meds & Active Scripts Active Clindamycin (Clindamycin HCl) 300 Mg Cap 300 Mg PO TID 7 Days Levemir Flextouch Pen Inj (Insulin Detemir) 300 unit/3 ML Pen 32 Units SQ BID 30 Days Humalog Kwikpen Pen Inj (Insulin Lispro (Human) Inj) 300 Unit/3 Ml Pen 12 Units SQ ACHS 30 Days Ranitidine (Ranitidine HCl) 150 Mg Tab 150 Mg PO HS Blood Glucose Monitoring W/Device (Device) 1 Kit Kit Kit .XX DIRECTED Blood Glucose Test Strips Strips Strip Ea .XX ACHS Lancets 1 Mis Mis Box .XX ACHS Chlorthalidone 25 Mg Tab 25 Mg PO DAILY Amlodipine (Amlodipine Besylate) 10 Mg Tab 10 Mg PO DAILY Gabapentin 300 Mg Cap 300 Mg PO BID Metoprolol Succinate ER 24 HR (Metoprolol Succinate) 50 Mg Tab 50 Mg PO HS Atorvastatin (Atorvastatin Calcium) 20 Mg Tab 20 Mg PO HS Ergocalciferol 50,000 Unit Cap 50,000 Units PO Q7D Levocetirizine 5 Mg Tab 5 Mg PO DAILY Pantoprazole (Pantoprazole Sodium) 40 Mg Tab 40 Mg PO DAILY Review of Systems Except as stated in HPI: all other systems reviewed are Neg General / Constitutional: No: Fever Physical Exam Narrative GENERAL: Alert well-appearing male in no distress SKIN: Warm and dry. HEAD: Normocephalic. EYES: No scleral icterus. No injection or drainage. NECK: Supple, trachea midline. MUSCULOSKELETAL: No cyanosis, or edema. Left foot: 0.5 cm circular shallow wound to the great toe medial aspect. Mild erythema. No bony tenderness of the toe. No purulent drainage. Data Data Last Documented VS Vital Signs Date Time Temp Pulse Resp B/P (MAP) Pulse Ox O2 Delivery O2 Flow Rate FiO2 04/30/17 17:06 98.9 76 16 164/88 (113) 97 MDM Medical Decision Making Medical Screen Exam Complete: Yes Emergency Medical Condition: Yes Differential Diagnosis Abscess, cellulitis, osteomyelitis Narrative Course 51-year-old male with small 0.5 cm wound to the right great toe dorsal aspect caused by a shoe rubbing on the area. Wound has been present for 2 weeks. He reports increasing pain over the last several days. He denies fever or chills. On exam he has no bony tenderness. The pain is isolated to the small wound. I do not suspect osteomyelitis at this time. Patient is a diabetic with peripheral neuropathy. 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 He will be put on antibiotics and instructed to check the wound daily. Stop wearing the shoes the cause the wound. Wear shoes at all times while walking around the house or outside. And to follow-up with his automobile mechanic apprentice Diagnosis Primary Impression: Wound infection Referrals: [facility] Additional Instructions: Take the antibiotics as prescribed. Follow with automobile mechanic apprentice. Return if he developed new or worsening symptoms Scripts Clindamycin (Clindamycin) 300 Mg Cap 300 MG PO TID for Infection for 7 Days, CAP 0 Refills Prov: Sarah Santillan 04/30/17 Disposition: 01 DISCHARGE HOME Condition: Stable Sarah Santillan Apr 30, 2017 18:04
== END 2017-04-30 18:15 | disposition home or self-care (01) ==
LOC: PHEFT 16:39
DX: L08.9 Local infection of the skin and subcutaneous tissue, unspecified (principal); E11.9 Type 2 diabetes mellitus without complications; G62.9 Polyneuropathy, unspecified; I10 Essential (primary) hypertension; E78.00 Pure hypercholesterolemia, unspecified; K21.9 Gastro-esophageal reflux disease without esophagitis; Z79.4 Long term (current) use of insulin; Z87.39 Personal history of other diseases of the musculoskeletal system and connective tissue
CPT/HCPCS: 99283

== ENCOUNTER 2017-08-05 15:38 | Emergency (ER) | payer MEDICARE ==
[~2017-08-05] VITALS: Ht 180.3 cm; Wt 135.0 kg
[~2017-08-05 15:38] MED LIST changes: -TRAM50TA PO
[2017-08-05 15:48] VITALS: BP 167/84; PULSE 81; RESP 16; TEMP 98.8; O2SAT 99
--- NOTE | 2017-08-05 16:02 | PD ---
HPI Chief Complaint: Cold / Flu Symptoms Time Seen by Provider: 15:57 Travel History International Travel<30 days: No Contact w/Intl Traveler<30days: No Traveled to known affect area: No History of Present Illness HPI 51-year-old male presents to the emergency department for evaluation of sore throat, cough, chest congestion. Patient states he thought about 2 weeks ago his allergies were acting up. He had a dry cough that didn't seem to bother him much. However yesterday he woke up with a sore throat. He feels like he has body aches. He has some mild nausea. Denies any fever or chills. Denies any significant pain except for the body aches. He has not taken anything for his symptoms. He has no other symptoms to report. PFSH Past Medical History Hx Anticoagulant Therapy: No Arthritis: No Asthma: No Autoimmune Disease: No Blood Disorders: No Heart Rhythm Problems: No Cancer: No Cardiac Catheterization: Yes (2010) Cardiovascular Problems: Yes (htn on meds) High Cholesterol: Yes Chemotherapy: No Chest Pain: Yes Congestive Heart Failure: No COPD: No Cerebrovascular Accident: No Diabetes: Yes (type 2) Diminished Hearing: No Endocrine: No Gastrointestinal Disorders: No GERD: Yes Glaucoma: No Genitourinary: No Headaches: No Heparin Induced Thrombocytopen: No Hypertension: Yes Immune Disorder: No Implanted Vascular Access Dvce: No Kidney Stones: No Musculoskeletal: Yes ("back problems" had MRI 08/21/10) Neurologic: Yes (peripheral neuropathy) Psychiatric: No Reproductive: No Respiratory: No Migraines: No Radiation Therapy: No Renal Failure: No Seizures: No Sickle Cell Disease: No Sleep Apnea: No Thyroid Disease: No Past Surgical History Abdominal Surgery: No AICD: No Arteriovenous Shunt: No Cardiac Surgery: Yes (cardiac catheterization 07/31) Coronary Artery Bypass Graft: No Ear Surgery: No Endocrine Surgery: No Eye Surgery: No Genitourinary Surgery: No Hysterectomy: No Insulin Pump: No Joint Replacement: No Neurologic Surgery: No Oral Surgery: No Pacemaker: No Thoracic Surgery: No Other Surgery: Yes (MASS REMOVED FROM ARM) Social History Alcohol Use: No Tobacco Use: No Substance Use: No Allergies-Medications (Allergen,Severity, Reaction): Coded Allergies: metformin (Verified Allergy, Severe, nausea and vomiting, 08/05/17) *MDRO Multi-Drug Resistant Organism (Verified Adverse Reaction, Unknown, ) 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 Uncoded Allergies: TETININ (Allergy, Unknown, Rash, 04/30/17) .ANTIBIOTIC Reported Meds & Prescriptions Reported Meds & Active Scripts Active Humalog Kwikpen Pen Inj (Insulin Lispro (Human) Inj) 300 Unit/3 Ml Pen 12 Units SQ ACHS 30 Days Levemir Flextouch Pen Inj (Insulin Detemir) 300 unit/3 ML Pen 32 Units SQ BID 30 Days Ranitidine (Ranitidine HCl) 150 Mg Tab 150 Mg PO HS Blood Glucose Monitoring W/Device (Device) 1 Kit Kit Kit .XX DIRECTED Blood Glucose Test Strips Strips Strip Ea .XX ACHS Lancets 1 Mis Mis Box .XX ACHS Chlorthalidone 25 Mg Tab 25 Mg PO DAILY Amlodipine (Amlodipine Besylate) 10 Mg Tab 10 Mg PO DAILY Gabapentin 300 Mg Cap 300 Mg PO BID Metoprolol Succinate ER 24 HR (Metoprolol Succinate) 50 Mg Tab 50 Mg PO HS Atorvastatin (Atorvastatin Calcium) 20 Mg Tab 20 Mg PO HS Review of Systems Except as stated in HPI: all other systems reviewed are Neg Physical Exam Narrative GENERAL: Well-nourished male patient, in no acute distress. He appears nontoxic. SKIN: Focused skin assessment warm/dry. HEAD: Atraumatic. Normocephalic. EYES: Pupils equal and round. No scleral icterus. No injection or drainage. ENT: No nasal bleeding or discharge. Mucous membranes pink and moist. Mild erythema without edema or exudate. NECK: Trachea midline. No JVD. CARDIOVASCULAR: Regular rate and rhythm. No murmur appreciated. RESPIRATORY: No accessory muscle use. Clear to auscultation. Breath sounds equal bilaterally. GASTROINTESTINAL: Abdomen soft, non-tender, nondistended. Hepatic and splenic margins not palpable. MUSCULOSKELETAL: No obvious deformities. No clubbing. No cyanosis. No edema. NEUROLOGICAL: Awake and alert. No obvious cranial nerve deficits. Motor grossly within normal limits. Normal speech. PSYCHIATRIC: Appropriate mood and affect; insight and judgment normal. Data Data Last Documented VS Vital Signs Date Time Temp Pulse Resp B/P (MAP) Pulse Ox O2 Delivery O2 Flow Rate FiO2 08/05/17 15:48 98.8 81 16 167/84 (111) 99 Orders Orders Group A Rapid Strep Screen (08/05/17 16:03) Influenzae A/B Antigen (08/05/17 16:03) Ibuprofen (Motrin) (08/05/17 16:15) Acetaminophen (Tylenol) (08/05/17 16:30) Strep Culture (Group A) (08/05/17 16:15) Chest, Single Ap (08/05/17 ) Ed Discharge Order (08/05/17 17:24) [facility] Medical Decision Making Medical Screen Exam Complete: Yes Emergency Medical Condition: Yes Medical Record Reviewed: Yes Differential Diagnosis Viral syndrome versus common cold versus pharyngitis versus pneumonia Narrative Course 51-year-old male presents to emergency department for evaluation. Patient appears well. He has a mildly erythematous pharynx. His breath sounds are clear. His vital signs are stable. He is not taking any medication to help him be afebrile. Influenza screen is negative. Rapid strep screen is negative. Chest x-rays without acute cardiopulmonary disease. This is likely a viral syndrome. I have counseled the patient on care. I encouraged to follow -up with a primary care provider and return immediately with any acute worsening symptoms. Diagnosis Primary Impression: Flu-like symptoms Referrals: Primary Care Physician Patient Instructions: General Instructions, Influenza (ED) Departure Forms: Tests/Procedures, Work Release Enter return to work date: Aug 08, 2017 Additional Instructions: Rest Maintain adequate oral hydration Avoid prolonged bedrest Return immediately to the emergency department with any acute worsening of symptoms Med/Other Pt SpecificInfo: No Change to Meds Disposition: 01 DISCHARGE HOME Condition: Stable Minal KaurP Aug 05, 2017 16:02
[2017-08-05] MEDS ORDERED: IBUPROFEN 600 MG TAB PO ONE (16:15)
[2017-08-05] MEDS ORDERED: ACETAMINOPHEN 325 MG TAB PO ONE (16:30)
--- NOTE | 2017-08-05 17:12 | RADRPT ---
EXAM DATE/TIME: 08/05/2017 16:48 [facility] COMPARISON: CHEST SINGLE AP, April 25, 2017, 15:33. INDICATIONS : Cough. MEDICAL HISTORY : Hypertension. Gastroesophageal reflux disease. Diabetes. Peripheral neuropathy SURGICAL HISTORY : Coronary artery stent. ENCOUNTER: Initial ACUITY: 1 day PAIN SCORE: 6/10 LOCATION: Bilateral chest FINDINGS: A single view of the chest demonstrates the lungs to be symmetrically aerated without evidence of mas s, infiltrate or effusion. The cardiomediastinal contours are unremarkable. Osseous structures are intact. CONCLUSION: 1. No acute cardiopulmonary findings appeared stable compared to prior exam. Francisco May MD on August 05, 2017 at 17:09 Board Certified Radiologist. This report was verified electronically.
== END 2017-08-05 17:33 | disposition home or self-care (01) ==
LOC: PHEFT 15:38
DX: R07.0 Pain in throat (principal); R05 Cough; R09.89 Other specified symptoms and signs involving the circulatory and respiratory systems; M79.1 Myalgia; R11.0 Nausea; I10 Essential (primary) hypertension; E11.9 Type 2 diabetes mellitus without complications; K21.9 Gastro-esophageal reflux disease without esophagitis; E78.00 Pure hypercholesterolemia, unspecified; Z79.4 Long term (current) use of insulin; Z87.39 Personal history of other diseases of the musculoskeletal system and connective tissue; Z86.69 Personal history of other diseases of the nervous system and sense organs
CPT/HCPCS: 71045; 87081; 87804; 87880; 99284

== ENCOUNTER 2017-08-10 13:59 | Emergency (ER) | payer MEDICARE ==
[~2017-08-10] VITALS: Ht 180.3 cm; Wt 131.2 kg
[~2017-08-10 13:59] MED LIST changes: -LEVOTAB PO; -PANT40TA3 PO; -VITA500012 PO
[2017-08-10 14:34] VITALS: BP 208/100; PULSE 85; RESP 16; TEMP 99.1; O2SAT 100
[2017-08-10] MEDS ORDERED: PANTOPRAZOLE SODIUM 40 MG VIAL IV PUSH ONE (15:00)
[2017-08-10] MEDS ORDERED: SODIUM CHLOR 0.9% 1000 ML INJ 1,000 ML IV ONE ×2 (15:00)
[2017-08-10] MEDS ORDERED: ONDANSETRON HCL 4 MG/2 ML VIAL IV PUSH ONE (15:00)
--- NOTE | 2017-08-10 15:03 | PD ---
HPI Chief Complaint: Abdominal Pain Time Seen by Provider: 14:53 Travel History International Travel<30 days: No Contact w/Intl Traveler<30days: No Traveled to known affect area: No History of Present Illness HPI This 51-year-old male says he been having abdominal pain for the last 3-4 days. Pain is having is somewhat diffuse and crampy in nature. It comes and goes. He says was quite bad last night and lasted most of the night. He has been vomiting. He says he has not been able to eat for several days. He has been able to hold down some liquids at times. He has been told in the past that he has an ulcer. He had an endoscopy about 2 years ago. He is not on any medication at this time. PFSH Past Medical History Hx Anticoagulant Therapy: No Arthritis: No Asthma: No Autoimmune Disease: No Blood Disorders: No Heart Rhythm Problems: No Cancer: No Cardiac Catheterization: Yes (2010) Cardiovascular Problems: Yes (htn on meds) High Cholesterol: Yes Chemotherapy: No Chest Pain: Yes Congestive Heart Failure: No COPD: No Cerebrovascular Accident: No Diabetes: Yes Patient Takes Glucophage: No Diminished Hearing: No Endocrine: No Gastrointestinal Disorders: No GERD: Yes Glaucoma: No Genitourinary: No Headaches: No Heparin Induced Thrombocytopen: No Hypertension: Yes Immune Disorder: No Implanted Vascular Access Dvce: No Kidney Stones: No Musculoskeletal: Yes ("back problems" had MRI 08/21/10) Neurologic: Yes (peripheral neuropathy) Psychiatric: No Reproductive: No Respiratory: No Migraines: No Radiation Therapy: No Renal Failure: No Seizures: No Sickle Cell Disease: No Sleep Apnea: No Thyroid Disease: No Tetanus Vaccination: Unknown ?: Not Past Surgical History Abdominal Surgery: No AICD: No Arteriovenous Shunt: No Cardiac Surgery: Yes (cardiac catheterization 07/31) Coronary Artery Bypass Graft: No Ear Surgery: No Endocrine Surgery: No Eye Surgery: No Genitourinary Surgery: No Hysterectomy: No Insulin Pump: No Joint Replacement: No Neurologic Surgery: No Oral Surgery: No Pacemaker: No Thoracic Surgery: No Other Surgery: Yes (MASS REMOVED FROM ARM) Family History Family Myocardial Infarction: No Social History Alcohol Use: No Tobacco Use: No Substance Use: No Allergies-Medications (Allergen,Severity, Reaction): Coded Allergies: metformin (Verified Allergy, Severe, nausea and vomiting, 08/10/17) *MDRO Multi-Drug Resistant Organism (Verified Adverse Reaction, Unknown, ) 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 Uncoded Allergies: TETININ (Allergy, Unknown, Rash, 04/30/17) .ANTIBIOTIC Reported Meds & Prescriptions Reported Meds & Active Scripts Active Humalog Kwikpen Pen Inj (Insulin Lispro (Human) Inj) 300 Unit/3 Ml Pen 12 Units SQ ACHS 30 Days Levemir Flextouch Pen Inj (Insulin Detemir) 300 unit/3 ML Pen 32 Units SQ BID 30 Days Ranitidine (Ranitidine HCl) 150 Mg Tab 150 Mg PO HS Blood Glucose Monitoring W/Device (Device) 1 Kit Kit Kit .XX DIRECTED Blood Glucose Test Strips Strips Strip Ea .XX ACHS Lancets 1 Mis Mis Box .XX ACHS Chlorthalidone 25 Mg Tab 25 Mg PO DAILY Amlodipine (Amlodipine Besylate) 10 Mg Tab 10 Mg PO DAILY Gabapentin 300 Mg Cap 300 Mg PO BID Metoprolol Succinate ER 24 HR (Metoprolol Succinate) 50 Mg Tab 50 Mg PO HS Atorvastatin (Atorvastatin Calcium) 20 Mg Tab 20 Mg PO HS Review of Systems General / Constitutional: No: Fever, Chills Eyes: No: Diploplia, Blurred Vision HENT: No: Headaches, Vertigo Cardiovascular: No: Chest Pain or Discomfort, Palpitations Respiratory: No: Cough, Shortness of Breath Gastrointestinal: Positive: Nausea, Vomiting, Abdominal Pain, No: Diarrhea Genitourinary: No: Urgency, Frequency Musculoskeletal: No: Myalgias Skin: No Rash Physical Exam Narrative GENERAL: Well-developed male SKIN: Focused skin assessment warm/dry. HEAD: Atraumatic. Normocephalic. EYES: Pupils equal and round. No scleral icterus. No injection or drainage. ENT: No nasal bleeding or discharge. Mucous membranes pink and moist. NECK: Trachea midline. No JVD. CARDIOVASCULAR: Regular rate and rhythm. No murmur appreciated. RESPIRATORY: No accessory muscle use. Clear to auscultation. Breath sounds equal bilaterally. GASTROINTESTINAL: Abdomen soft, obese. Hard to assess for distention. There is somewhat diffuse tenderness without guarding or rigidity MUSCULOSKELETAL: No obvious deformities. No clubbing. No cyanosis. No edema. NEUROLOGICAL: Awake and alert. No obvious cranial nerve deficits. Motor grossly within normal limits. Normal speech. PSYCHIATRIC: Appropriate mood and affect; insight and judgment normal. Data Data Last Documented VS Vital Signs Date Time Temp Pulse Resp B/P (MAP) Pulse Ox O2 Delivery O2 Flow Rate FiO2 08/10/17 16:12 160/79 (106) 08/10/17 15:20 81 16 100 Room Air 08/10/17 14:34 99.1 Orders Orders Complete Blood Count With Diff (08/10/17 14:54) Comprehensive Metabolic Panel (08/10/17 14:54) Lipase (08/10/17 14:54) Urinalysis - C+S If Indicated (08/10/17 14:54) Ct Abd/Pel W Iv Contrast(Rout) (08/10/17 14:54) Sodium Chlor 0.9% 1000 Ml Inj (Ns 1000 M (08/10/17 15:00) Sodium Chlor 0.9% 1000 Ml Inj (Ns 1000 M (08/10/17 15:00) Pantoprazole Inj (Protonix Inj) (08/10/17 15:00) Ondansetron Inj (Zofran Inj) (08/10/17 15:00) Hydromorphone Pf Inj (Dilaudid Pf Inj) (08/10/17 15:30) Iohexol 350 Inj (Omnipaque 350 Inj) (08/10/17 15:29) Labs Laboratory Tests Test 08/10/17 15:10 White Blood Count 10.9 TH/MM3 Red Blood Count 5.55 MIL/MM3 Hemoglobin 12.0 GM/DL Hematocrit 38.3 % Mean Corpuscular Volume 69.0 FL Mean Corpuscular Hemoglobin 21.6 PG Mean Corpuscular Hemoglobin Concent 31.3 % Red Cell Distribution Width 15.8 % Platelet Count 256 TH/MM3 Mean Platelet Volume 9.1 FL Neutrophils (%) (Auto) 92.8 % Lymphocytes (%) (Auto) 6.0 % Monocytes (%) (Auto) 0.9 % Eosinophils (%) (Auto) 0.1 % Basophils (%) (Auto) 0.2 % Neutrophils # (Auto) 10.1 TH/MM3 Lymphocytes # (Auto) 0.7 TH/MM3 Monocytes # (Auto) 0.1 TH/MM3 Eosinophils # (Auto) 0.0 TH/MM3 Basophils # (Auto) 0.0 TH/MM3 CBC Comment AUTO DIFF Blood Urea Nitrogen 23 MG/DL Creatinine 2.20 MG/DL Random Glucose 280 MG/DL Total Protein 7.9 GM/DL Albumin 3.2 GM/DL Calcium Level 9.1 MG/DL Alkaline Phosphatase 97 U/L Aspartate Amino Transf (AST/SGOT) 17 U/L Alanine Aminotransferase (ALT/SGPT) 34 U/L Total Bilirubin 0.3 MG/DL Sodium Level 138 MEQ/L Potassium Level 4.7 MEQ/L Chloride Level 104 MEQ/L Carbon Dioxide Level 24.8 MEQ/L Anion Gap 9 MEQ/L Estimat Glomerular Filtration Rate 38 ML/MIN Lipase 65 U/L [facility] Medical Decision Making Medical Screen Exam Complete: Yes Emergency Medical Condition: Yes Medical Record Reviewed: Yes Differential Diagnosis Differential includes bowel obstruction, gastritis, ulcer disease Narrative Course Ordered a CT of the abdomen and pelvis because I did not feel the pattern of pain was consistent with ulcer disease. The CT is negative. His lab work is similar to previous readings. He does have chronic renal insufficiency. He has been given some IV fluids Zofran and 1 dose of Dilaudid. He reports much improvement in the pain. His blood pressure had been elevated but repeat reading has come down. He will be released with prescription for Protonix, Zofran and a few Lortab Diagnosis Primary Impression: Peptic ulcer disease Scripts Hydrocodone-Acetaminophen (Hydrocodone-Acetaminophen) 7.5 Mg-325 Mg Tab 1 TAB PO Q4H Y for PAIN, #12 TAB 0 Refills Prov: Larry Vieyra MD 08/10/17 Ondansetron Odt (Zofran Odt) 4 Mg Tab 4 MG SL Q6HR Y for Nausea/Vomiting, #15 TAB 0 Refills Prov: Larry Vieyra MD 08/10/17 Pantoprazole (Pantoprazole) 40 Mg Tab 40 MG PO DAILY for Reflux, #30 TAB 0 Refills Prov: Larry Vieyra MD 08/10/17 Disposition: DISCHARGE HOME Condition: Stable Larry Vieyra MD Aug 10, 2017 15:03
[2017-08-10 15:20] VITALS: BP 216/120; PULSE 81; RESP 16; O2SAT 100
[2017-08-10] MEDS ORDERED: IOHEXOL 350 MG/ML 10 ML VIAL (for RAD DIAG) IVCONTRAST ONE (15:29)
[2017-08-10] MEDS ORDERED: HYDROmorphone HCL PF 2 MG/ML VIAL IV PUSH ONE (15:30)
[2017-08-10 15:36] LABS: AUTOMATED NEUTROPHIL # 10.1 TH/MM3 (1.8-7.7); BASOPHIL % 0.2 % (0.0-2.0); EOSINOPHIL % 0.1 % (0.0-4.0); HEMATOCRIT 38.3 % (39.0-51.0); LYMPHOCYTE # 0.7 TH/MM3 (1.0-4.8); MEAN CORPUSCULAR HEMOGLOBIN 21.6 PG (27.0-34.0); MEAN CORPUSCULAR HGB CONC 31.3 % (32.0-36.0); MEAN PLATELET VOLUME 9.1 FL (7.0-11.0); MONO % 0.9 % (0.0-8.0); MONOCYTE # 0.1 TH/MM3 (0-0.9); NEUT % 92.8 % (16.0-70.0); PLATELET COUNT 256 TH/MM3 (150-450); RED BLOOD COUNT 5.55 MIL/MM3 (4.50-5.90); RED CELL DISTRIBUTION WIDTH 15.8 % (11.6-17.2); WHITE BLOOD COUNT 10.9 TH/MM3 (4.0-11.0)
--- NOTE | 2017-08-10 15:39 | RADRPT ---
EXAM DATE/TIME: 08/10/2017 15:23 [facility] COMPARISON: No previous studies available for comparison. INDICATIONS : Diffuse abdominal pain and vomiting. IV CONTRAST: 95 cc Omnipaque 350 (iohexol) IV ORAL CONTRAST: No oral contrast ingested. RADIATION DOSE: 24.89 CTDIvol (mGy) ; Patient body habitus MEDICAL HISTORY : Gastroesophageal reflux disease. Ulcers. Diabetes mellitus type 2.Hypertension. SURGICAL HISTORY : None. ENCOUNTER: Initial ACUITY: 4 - 6 days PAIN SCALE: 5/10 LOCATION: Diffuse abdomen. TECHNIQUE: Volumetric scanning of the abdomen and pelvis was performed. Using automated exposure control and ad justment of the mA and/or kV according to patient size, radiation dose was kept as low as reasonably achievable to obtain optimal diagnostic quality images. DICOM format image data is available electro nically for review and comparison. FINDINGS: Lower lungs are clear.. Mild compensated cardiomegaly. Liver and gallbladder are unremarkable Spleen and pancreas appear normal The adrenal glands are unremarkable Symmetrical renal function out mass The cecum and descending escending colon appear remarkable Moderate stool is seen in the transverse and descending colon In the pelvis bladder prostate and simple vesicles unremarkable. There is no free air. There no inflammatory change is evident There is no retroperitoneal adenopathy Mild degenerative changes lumbar spine Small nonspecific lungs are lucency left posterior iliac spine. CONCLUSION: No inflammatory change is evident the abdomen. I do not see etiology for the patient's pain Ankit May MD FACR on August 10, 2017 at 15:35 Board Certified Radiologist. This report was verified electronically.
[2017-08-10 15:52] LABS: CHLORIDE 104 MEQ/L (98-107); SODIUM (NA) 138 MEQ/L (136-145)
[2017-08-10 15:55] LABS: CALCIUM 9.1 MG/DL (8.5-10.1)
[2017-08-10 15:56] LABS: ALBUMIN 3.2 GM/DL (3.4-5.0); BICARBONATE 24.8 MEQ/L (21.0-32.0); BLOOD UREA NITROGEN 23 MG/DL (7-18); GLUCOSE,RANDOM 280 MG/DL (74-106)
[2017-08-10 15:59] LABS: ALT (GPT) 34 U/L (12-78); AST (GOT) 17 U/L (15-37); GLOMERULAR FILTRATION RATE 38 ML/MIN (>89)
[2017-08-10 16:00] LABS: TOTAL BILIRUBIN ADULT 0.3 MG/DL (0.2-1.0); TOTAL PROTEIN 7.9 GM/DL (6.4-8.2)
[2017-08-10 16:01] LABS: ALKALINE PHOSPHATASE 97 U/L (45-117)
[2017-08-10 16:12] VITALS: BP 160/79
[2017-08-10] MEDS ORDERED: PANT40TA3 PO (16:20)
[2017-08-10] MEDS ORDERED: ZOFR4TAB3 SL (16:20)
[2017-08-10] MEDS ORDERED: HYDR-3580 PO (16:20)
== END 2017-08-10 17:17 | disposition home or self-care (01) ==
LOC: PHED 13:59
DX: K27.9 Peptic ulcer, site unspecified, unspecified as acute or chronic, without hemorrhage or perforation (principal); N18.9 Chronic kidney disease, unspecified; R11.10 Vomiting, unspecified; I12.9 Hypertensive chronic kidney disease with stage 1 through stage 4 chronic kidney disease, or unspecified chronic kidney disease; E78.00 Pure hypercholesterolemia, unspecified; E11.9 Type 2 diabetes mellitus without complications; Z79.4 Long term (current) use of insulin; Z79.899 Other long term (current) drug therapy; Z88.8 Allergy status to other drugs, medicaments and biological substances
CPT/HCPCS: 74177; 80053; 83690; 85025; 96361; 96374; 96375; 99285; C9113; J1170; J2405; J7030; Q9967

== ENCOUNTER 2017-08-12 16:38 | Emergency (ER) | payer MEDICARE ==
[~2017-08-12] VITALS: Ht 180.3 cm; Wt 130.5 kg
[~2017-08-12 16:38] MED LIST changes: +HYDR-3580 PO; +PANT40TA3 PO; +ZOFR4TAB3 SL
[2017-08-12 17:08] VITALS: BP 182/101; PULSE 83; RESP 16; TEMP 98.5; O2SAT 100
[2017-08-12 19:49] VITALS: BP 188/102; PULSE 78; RESP 16; O2SAT 99
--- NOTE | 2017-08-12 19:55 | PD ---
HPI Chief Complaint: GI Complaint Time Seen by Provider: 19:42 Travel History International Travel<30 days: No Contact w/Intl Traveler<30days: No Traveled to known affect area: No History of Present Illness HPI The patient is a 51-year-old -[place] male who presents to the emergency department fact epigastric abdominal pain. The patient complains of one-week symptoms, epigastric abdominal pain, nonradiating, associated decreased appetite secondary to pain. The patient was seen in the emergency department on the where he had laboratory evaluation and CT of the abdomen and pelvis performed. The patient was noted to have renal insufficiency which is chronic, however, LFTs and lipase were normal. CT of the abdomen and pelvis was unremarkable. The patient was advised to take Protonix for possible peptic ulcer disease and follow-up with gastroenterology. However, the patient did not fill the Protonix prescription. He does have a history of previous peptic ulcer disease, last had an endoscopy approximately 3-[address] Hitchcock. The patient denies any previous abdominal surgeries. He does note pain that is worse at night, notes decreased appetite and oral intake secondary to the pain. PFSH Past Medical History Hx Anticoagulant Therapy: No Arthritis: No Asthma: No Autoimmune Disease: No Blood Disorders: No Heart Rhythm Problems: No Cancer: No Cardiac Catheterization: Yes (2010) Cardiovascular Problems: Yes (htn on meds) High Cholesterol: Yes Chemotherapy: No Chest Pain: Yes Congestive Heart Failure: No COPD: No Cerebrovascular Accident: No Diabetes: Yes Diminished Hearing: No Endocrine: No Gastrointestinal Disorders: No GERD: Yes Glaucoma: No Genitourinary: No Headaches: No Heparin Induced Thrombocytopen: No Hypertension: Yes Immune Disorder: No Implanted Vascular Access Dvce: No Kidney Stones: No Musculoskeletal: Yes ("back problems" had MRI 08/21/10) Neurologic: Yes (peripheral neuropathy) Psychiatric: No Reproductive: No Respiratory: No Migraines: No Radiation Therapy: No Renal Failure: No Seizures: No Sickle Cell Disease: No Sleep Apnea: No Thyroid Disease: No Past Surgical History Abdominal Surgery: No AICD: No Arteriovenous Shunt: No Cardiac Surgery: Yes (cardiac catheterization 07/31) Coronary Artery Bypass Graft: No Ear Surgery: No Endocrine Surgery: No Eye Surgery: No Genitourinary Surgery: No Hysterectomy: No Insulin Pump: No Joint Replacement: No Neurologic Surgery: No Oral Surgery: No Pacemaker: No Thoracic Surgery: No Other Surgery: Yes (MASS REMOVED FROM ARM) Social History Alcohol Use: No Tobacco Use: No Substance Use: No Allergies-Medications (Allergen,Severity, Reaction): Coded Allergies: metformin (Verified Allergy, Severe, nausea and vomiting, 08/12/17) *MDRO Multi-Drug Resistant Organism (Verified Adverse Reaction, Unknown, ) 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 Uncoded Allergies: TETININ (Allergy, Unknown, Rash, 04/30/17) .ANTIBIOTIC Reported Meds & Prescriptions Reported Meds & Active Scripts Active Hydrocodone-Acetaminophen 7.5 Mg-325 Mg Tab 1 Tab PO Q4H PRN Zofran Odt (Ondansetron Odt) 4 Mg Tab 4 Mg SL Q6HR PRN Pantoprazole (Pantoprazole Sodium) 40 Mg Tab 40 Mg PO DAILY Humalog Kwikpen Pen Inj (Insulin Lispro (Human) Inj) 300 Unit/3 Ml Pen 12 Units SQ ACHS 30 Days Levemir Flextouch Pen Inj (Insulin Detemir) 300 unit/3 ML Pen 32 Units SQ BID 30 Days Ranitidine (Ranitidine HCl) 150 Mg Tab 150 Mg PO HS Blood Glucose Monitoring W/Device (Device) 1 Kit Kit Kit .XX DIRECTED Blood Glucose Test Strips Strips Strip Ea .XX ACHS Lancets 1 Mis Mis Box .XX ACHS Chlorthalidone 25 Mg Tab 25 Mg PO DAILY Amlodipine (Amlodipine Besylate) 10 Mg Tab 10 Mg PO DAILY Gabapentin 300 Mg Cap 300 Mg PO BID Metoprolol Succinate ER 24 HR (Metoprolol Succinate) 50 Mg Tab 50 Mg PO HS Atorvastatin (Atorvastatin Calcium) 20 Mg Tab 20 Mg PO HS Review of Systems Except as stated in HPI: all other systems reviewed are Neg General / Constitutional: No: Fever Cardiovascular: No: Chest Pain or Discomfort Respiratory: No: Shortness of Breath Gastrointestinal: Positive: Nausea, Abdominal Pain, Indigestion, Loss of Appetite, No: Vomiting, Changes in Bowel Habits Physical Exam Narrative GENERAL: Awake, alert, 51-year-old male who appears his stated age and is in no acute respiratory distress. SKIN: Focused skin assessment warm/dry. HEAD: Atraumatic. Normocephalic. EYES: No scleral icterus. ENT: No nasal bleeding or discharge. Mucous membranes pink and moist. NECK: Trachea midline. No JVD. CARDIOVASCULAR: Regular rate and rhythm. No murmur appreciated. RESPIRATORY: No accessory muscle use. Clear to auscultation. Breath sounds equal bilaterally. GASTROINTESTINAL: Abdomen soft, n obese, minimal tenderness epigastrium. No guarding or rigidity. MUSCULOSKELETAL: No obvious deformities. No clubbing. No cyanosis. No edema. NEUROLOGICAL: Awake and alert. No obvious cranial nerve deficits. Motor grossly within normal limits. Normal speech. PSYCHIATRIC: Appropriate mood and affect; insight and judgment normal. Data Data Last Documented VS Vital Signs Date Time Temp Pulse Resp B/P (MAP) Pulse Ox O2 Delivery O2 Flow Rate FiO2 08/12/17 21:04 78 16 187/93 (124) 99 Room Air 08/12/17 17:08 98.5 Orders Orders Complete Blood Count With Diff (08/12/17 19:48) Comprehensive Metabolic Panel (08/12/17 19:48) Lipase (08/12/17 19:48) Iv Access Insert/Monitor (08/12/17 19:48) Ecg Monitoring (08/12/17 19:48) Oximetry (08/12/17 19:48) Ondansetron Inj (Zofran Inj) (08/12/17 20:00) Sodium Chloride 0.9% Flush (Ns Flush) (08/12/17 20:00) Famotidine Inj (Pepcid Inj) (08/12/17 20:00) Hydromorphone Pf Inj (Dilaudid Pf Inj) (08/12/17 20:00) Al-Mag Hy-Si 40-40-4 Mg/Ml Liq (Mag-Al P (08/12/17 20:00) Lidocaine 2% Viscous (Xylocaine 2% Visco (08/12/17 20:00) Sodium Chlorid 0.9% 500 Ml Inj (Ns 500 M (08/12/17 20:00) Hydromorphone Pf Inj (Dilaudid Pf Inj) (08/12/17 20:30) Labs Laboratory Tests Test 08/12/17 20:10 White Blood Count 8.9 TH/MM3 Red Blood Count 5.95 MIL/MM3 Hemoglobin 12.5 GM/DL Hematocrit 41.5 % Mean Corpuscular Volume 69.8 FL Mean Corpuscular Hemoglobin 21.0 PG Mean Corpuscular Hemoglobin Concent 30.1 % Red Cell Distribution Width 15.8 % Platelet Count 261 TH/MM3 Mean Platelet Volume 8.9 FL Neutrophils (%) (Auto) 90.0 % Lymphocytes (%) (Auto) 8.8 % Monocytes (%) (Auto) 0.8 % Eosinophils (%) (Auto) 0.2 % Basophils (%) (Auto) 0.2 % Neutrophils # (Auto) 8.0 TH/MM3 Lymphocytes # (Auto) 0.8 TH/MM3 Monocytes # (Auto) 0.1 TH/MM3 Eosinophils # (Auto) 0.0 TH/MM3 Basophils # (Auto) 0.0 TH/MM3 CBC Comment AUTO DIFF Differential Comment AUTO DIFF CONFIRMED Platelet Estimate NORMAL Platelet Morphology Comment NORMAL Ovalocytes 1+ Blood Urea Nitrogen 35 MG/DL Creatinine 2.60 MG/DL Random Glucose 177 MG/DL Total Protein 8.0 GM/DL Albumin 3.4 GM/DL Calcium Level 8.9 MG/DL Alkaline Phosphatase 99 U/L Aspartate Amino Transf (AST/SGOT) 21 U/L Alanine Aminotransferase (ALT/SGPT) 31 U/L Total Bilirubin 0.3 MG/DL Sodium Level 138 MEQ/L Potassium Level 4.9 MEQ/L Chloride Level 103 MEQ/L Carbon Dioxide Level 25.8 MEQ/L Anion Gap 9 MEQ/L Estimat Glomerular Filtration Rate 32 ML/MIN Lipase 54 U/L [facility] Medical Decision Making Medical Screen Exam Complete: Yes Emergency Medical Condition: Yes Medical Record Reviewed: Yes Interpretation(s) Laboratory Tests Test 08/12/17 20:10 White Blood Count 8.9 TH/MM3 Red Blood Count 5.95 MIL/MM3 Hemoglobin 12.5 GM/DL Hematocrit 41.5 % Mean Corpuscular Volume 69.8 FL Mean Corpuscular Hemoglobin 21.0 PG Mean Corpuscular Hemoglobin Concent 30.1 % Red Cell Distribution Width 15.8 % Platelet Count 261 TH/MM3 Mean Platelet Volume 8.9 FL Neutrophils (%) (Auto) 90.0 % Lymphocytes (%) (Auto) 8.8 % Monocytes (%) (Auto) 0.8 % Eosinophils (%) (Auto) 0.2 % Basophils (%) (Auto) 0.2 % Neutrophils # (Auto) 8.0 TH/MM3 Lymphocytes # (Auto) 0.8 TH/MM3 Monocytes # (Auto) 0.1 TH/MM3 Eosinophils # (Auto) 0.0 TH/MM3 Basophils # (Auto) 0.0 TH/MM3 CBC Comment AUTO DIFF Differential Comment AUTO DIFF CONFIRMED Platelet Estimate NORMAL Platelet Morphology Comment NORMAL Ovalocytes 1+ Blood Urea Nitrogen 35 MG/DL Creatinine 2.60 MG/DL Random Glucose 177 MG/DL Total Protein 8.0 GM/DL Albumin 3.4 GM/DL Calcium Level 8.9 MG/DL Alkaline Phosphatase 99 U/L Aspartate Amino Transf (AST/SGOT) 21 U/L Alanine Aminotransferase (ALT/SGPT) 31 U/L Total Bilirubin 0.3 MG/DL Sodium Level 138 MEQ/L Potassium Level 4.9 MEQ/L Chloride Level 103 MEQ/L Carbon Dioxide Level 25.8 MEQ/L Anion Gap 9 MEQ/L Estimat Glomerular Filtration Rate 32 ML/MIN Lipase 54 U/L Differential Diagnosis Differential diagnosis includes GERD, esophagitis, gastritis, peptic ulcer disease, AAA, mesenteric ischemia, biliary colic, cholecystitis. Narrative Course I reviewed the patient's EMR, he will laboratory evaluation that was essentially unremarkable except for creatinine of 2.2 on the . The patient had a CT of the abdomen and pelvis at that time which was negative for any acute inflammatory process. Patient does have a history of ulcers, states he last had an endoscopy 3-4 months ago. He was prescribed Protonix, however, did not fill the prescription secondary to monetary concerns. The patient had an IV established, labs were drawn and sent, the patient was placed on cardiac telemetry monitoring and continuous pulse oximetry monitoring. The patient received Zofran, Pepcid, GI cocktail, Dilaudid, and IV fluids. Lipase level was sent to lab. Lipase level was 54. Creatinine is mildly elevated at 2.6, patient has a history of stage stage III CKD. Patient was reevaluated at 9:30 PM, his symptoms have significantly improved. I will place the patient on Zantac twice a day until he can have his Protonix filled. He will also be prescribed Carafate as needed. He is advised to return if symptoms worsen or progress. Diagnosis Primary Impression: Epigastric abdominal pain Additional Impression: Peptic ulcer disease Patient Instructions: General Instructions Additional Instructions: Zantac as directed until you can take Protonix. Follow-up with your customer solutions supervisor. Avoid peppermint, sperm, alcohol, and nicotine. Return if symptoms worsen or progress. Please provide the patient a copy of his labs at discharge. Med/Other Pt SpecificInfo: Prescription(s) given Scripts Ranitidine (Zantac) 150 Mg Tab 150 MG PO BID for Reduce Stomach Acid for 14 Days, #28 TAB 0 Refills Prov: Fish Lawrence MD 08/12/17 Disposition: 01 DISCHARGE HOME Condition: Stable Fish Lawrence MD Aug 12, 2017 19:55
[2017-08-12] MEDS ORDERED: FAMOTIDINE 20 MG/2 ML VIAL IV PUSH ONE (20:00)
[2017-08-12] MEDS ORDERED: SODIUM CHLORIDE 0.9% FLUSH 10 ML FLUSH IV FLUSH PRN (20:00)
[2017-08-12] MEDS ORDERED: LIDOCAINE VISCOUS 2% SOLN 15 ML UDC PO ONE (20:00)
[2017-08-12] MEDS ORDERED: SODIUM CHLORID 0.9% 500 ML INJ 500 ML IV ONE (20:00)
[2017-08-12] MEDS ORDERED: ALUMINUM/MAGNESIUM/SIMETH 30 ML CUP PO ONE (20:00)
[2017-08-12] MEDS ORDERED: ONDANSETRON HCL 4 MG/2 ML VIAL IVP ONE (20:00)
[2017-08-12] MEDS ORDERED: HYDROmorphone HCL PF 1 MG/ML VIAL IVS ONE (20:00)
[2017-08-12] MEDS ORDERED: HYDROmorphone HCL PF 2 MG/ML VIAL IV PUSH ONE (20:30)
[2017-08-12 20:36] LABS: CHLORIDE 103 MEQ/L (98-107); SODIUM (NA) 138 MEQ/L (136-145)
[2017-08-12 20:37] LABS: BASOPHIL % 0.2 % (0.0-2.0); EOSINOPHIL % 0.2 % (0.0-4.0); HEMATOCRIT 41.5 % (39.0-51.0); HEMOGLOBIN 12.5 GM/DL (13.0-17.0); LYMPH % 8.8 % (9.0-44.0); LYMPHOCYTE # 0.8 TH/MM3 (1.0-4.8); MEAN CELL VOLUME 69.8 FL (80.0-100.0); MEAN CORPUSCULAR HGB CONC 30.1 % (32.0-36.0); MEAN PLATELET VOLUME 8.9 FL (7.0-11.0); MONO % 0.8 % (0.0-8.0); MONOCYTE # 0.1 TH/MM3 (0-0.9); PLATELET COUNT 261 TH/MM3 (150-450); RED BLOOD COUNT 5.95 MIL/MM3 (4.50-5.90); RED CELL DISTRIBUTION WIDTH 15.8 % (11.6-17.2); WHITE BLOOD COUNT 8.9 TH/MM3 (4.0-11.0)
[2017-08-12 20:39] LABS: CALCIUM 8.9 MG/DL (8.5-10.1)
[2017-08-12 20:40] LABS: ALBUMIN 3.4 GM/DL (3.4-5.0); BICARBONATE 25.8 MEQ/L (21.0-32.0)
[2017-08-12 20:49] LABS: OVALOCYTES 1+ (NORMAL)
[2017-08-12 20:56] LABS: ALKALINE PHOSPHATASE 99 U/L (45-117); ALT (GPT) 31 U/L (12-78); AST (GOT) 21 U/L (15-37); BLOOD UREA NITROGEN 35 MG/DL (7-18); GLOMERULAR FILTRATION RATE 32 ML/MIN (>89); GLUCOSE,RANDOM 177 MG/DL (74-106); TOTAL BILIRUBIN ADULT 0.3 MG/DL (0.2-1.0)
[2017-08-12 21:04] VITALS: BP 187/93; PULSE 78; RESP 16; O2SAT 99
[2017-08-12] MEDS ORDERED: ZANT150T2 PO (21:38)
[2017-08-12 22:00] VITALS: BP 187/89
== END 2017-08-12 22:03 | disposition home or self-care (01) ==
LOC: PHED 16:38
DX: R10.13 Epigastric pain (principal); K27.9 Peptic ulcer, site unspecified, unspecified as acute or chronic, without hemorrhage or perforation; I12.9 Hypertensive chronic kidney disease with stage 1 through stage 4 chronic kidney disease, or unspecified chronic kidney disease; E11.9 Type 2 diabetes mellitus without complications; N18.3 Chronic kidney disease, stage 3 (moderate); K21.9 Gastro-esophageal reflux disease without esophagitis; G62.9 Polyneuropathy, unspecified; E78.00 Pure hypercholesterolemia, unspecified; Z87.39 Personal history of other diseases of the musculoskeletal system and connective tissue; Z79.4 Long term (current) use of insulin
CPT/HCPCS: 80053; 83690; 85025; 96361; 96374; 96375; 99284; J1170; J2405; J7040

== ENCOUNTER 2017-10-13 13:20 | Emergency (ER) | payer MEDICARE ==
[~2017-10-13] VITALS: Ht 180.3 cm; Wt 131.0 kg
[~2017-10-13 13:20] MED LIST changes: +ZANT150T2 PO
[2017-10-13 13:30] VITALS: BP 171/91; PULSE 92; RESP 18; TEMP 98.4; O2SAT 99
[2017-10-13] MEDS ORDERED: ASPI81CH7 CHEW (13:37)
[2017-10-13 13:39] VITALS: O2SAT 98
--- NOTE | 2017-10-13 13:43 | PD ---
HPI Chief Complaint: Chest Pain Time Seen by Provider: 13:22 Travel History International Travel<30 days: No Contact w/Intl Traveler<30days: No Traveled to known affect area: No History of Present Illness HPI 51-year-old male arrives with a complaint of chest pain for about a day and a half. He states the pain is about 9/10 in the ED. There is no exertional component. There is no pleuritic component. He denies shortness of breath. The patient has pain radiating to the left arm and left leg. He has a history of hypertension and hyperglycemia. He denies hyperglycemia. Patient underwent coronary catheterization 8 years ago revealing clean coronary arteries. No change in medication or lifestyle lately. He denies drug abuse. No tobaccoism. PFSH Past Medical History Hx Anticoagulant Therapy: No Arthritis: No Asthma: No Autoimmune Disease: No Blood Disorders: No Heart Rhythm Problems: No Cancer: No Cardiac Catheterization: Yes (2010) Cardiovascular Problems: Yes (htn on meds) High Cholesterol: Yes Chemotherapy: No Chest Pain: Yes Congestive Heart Failure: No COPD: No Cerebrovascular Accident: No Diabetes: Yes Patient Takes Glucophage: No Diminished Hearing: No Endocrine: No Gastrointestinal Disorders: No GERD: Yes Glaucoma: No Genitourinary: No Headaches: No Heparin Induced Thrombocytopen: No Hypertension: Yes Immune Disorder: No Implanted Vascular Access Dvce: No Kidney Stones: No Musculoskeletal: Yes ("back problems" had MRI 08/21/10) Neurologic: Yes (peripheral neuropathy) Psychiatric: No Reproductive: No Respiratory: No Migraines: No Radiation Therapy: No Renal Failure: No Seizures: No Sickle Cell Disease: No Sleep Apnea: No Thyroid Disease: No Tetanus Vaccination: < 5 Years Influenza Vaccination: Yes Past Surgical History Abdominal Surgery: No AICD: No Arteriovenous Shunt: No Cardiac Surgery: Yes (cardiac catheterization 07/31) Coronary Artery Bypass Graft: No Ear Surgery: No Endocrine Surgery: No Eye Surgery: No Genitourinary Surgery: No Hysterectomy: No Insulin Pump: No Joint Replacement: No Neurologic Surgery: No Oral Surgery: No Pacemaker: No Thoracic Surgery: No Other Surgery: Yes (MASS REMOVED FROM ARM) Social History Alcohol Use: No Tobacco Use: No Substance Use: No Allergies-Medications (Allergen,Severity, Reaction): Coded Allergies: metformin (Verified Allergy, Severe, nausea and vomiting, 10/13/17) *MDRO Multi-Drug Resistant Organism (Verified Adverse Reaction, Unknown, ) 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 Uncoded Allergies: TETININ (Allergy, Unknown, Rash, 04/30/17) .ANTIBIOTIC Reported Meds & Prescriptions Reported Meds & Active Scripts Active Pantoprazole (Pantoprazole Sodium) 40 Mg Tab 40 Mg PO DAILY Humalog Kwikpen Pen Inj (Insulin Lispro (Human) Inj) 300 Unit/3 Ml Pen 12 Units SQ ACHS 30 Days Levemir Flextouch Pen Inj (Insulin Detemir) 300 unit/3 ML Pen 32 Units SQ BID 30 Days Ranitidine (Ranitidine HCl) 150 Mg Tab 150 Mg PO HS Blood Glucose Monitoring W/Device (Device) 1 Kit Kit Kit .XX DIRECTED Blood Glucose Test Strips Strips Strip Ea .XX ACHS Lancets 1 Mis Mis Box .XX ACHS Chlorthalidone 25 Mg Tab 25 Mg PO DAILY Amlodipine (Amlodipine Besylate) 10 Mg Tab 10 Mg PO DAILY Gabapentin 300 Mg Cap 300 Mg PO BID Metoprolol Succinate ER 24 HR (Metoprolol Succinate) 50 Mg Tab 50 Mg PO HS Atorvastatin (Atorvastatin Calcium) 20 Mg Tab 20 Mg PO HS Reported Aspirin Children's (Aspirin) 81 Mg Chew 81 Mg CHEW DAILY Review of Systems Except as stated in HPI: all other systems reviewed are Neg General / Constitutional: No: Fever Physical Exam Narrative GENERAL: 51-year-old male well-nourished well-developed mild distress secondary to pain Vital Signs Date Time Temp Pulse Resp B/P (MAP) Pulse Ox O2 Delivery O2 Flow Rate FiO2 10/13/17 13:39 98 Room Air 10/13/17 13:39 98 Room Air 10/13/17 13:33 (117) 10/13/17 13:30 98.4 92 18 171/91 (117) 99 Room Air 10/13/17 13:30 Room Air SKIN: Warm and dry. HEAD: Atraumatic. Normocephalic. EYES: Pupils equal and round. No scleral icterus. No injection or drainage. ENT: No nasal bleeding or discharge. Mucous membranes pink and moist. NECK: Trachea midline. No JVD. CARDIOVASCULAR: Regular rate and rhythm. RESPIRATORY: No accessory muscle use. Clear to auscultation. Breath sounds equal bilaterally. GASTROINTESTINAL: Abdomen soft, non-tender, nondistended. Hepatic and splenic margins not palpable. MUSCULOSKELETAL: Extremities without clubbing, cyanosis, or edema. No obvious deformities. NEUROLOGICAL: Awake and alert. No obvious cranial nerve deficits. Motor grossly within normal limits. Five out of 5 muscle strength in the arms and legs. Normal speech. PSYCHIATRIC: Appropriate mood and affect; insight and judgment normal. Data Data Last Documented VS Vital Signs Date Time Temp Pulse Resp B/P (MAP) Pulse Ox O2 Delivery O2 Flow Rate FiO2 10/13/17 14:16 98.0 72 16 176/79 (111) Nasal Cannula 2.00 10/13/17 14:04 96 Orders Orders Electrocardiogram (10/13/17 13:33) Ckmb (Isoenzyme) Profile (10/13/17 13:33) Complete Blood Count With Diff (10/13/17 13:33) Comprehensive Metabolic Panel (10/13/17 13:33) Magnesium (Mg) (10/13/17 13:33) Prothrombin Time / Inr (Pt) (10/13/17 13:33) Act Partial Throm Time (Ptt) (10/13/17 13:33) Troponin I (10/13/17 13:33) Lipase (10/13/17 13:33) Chest, Single Ap (10/13/17 13:33) Ecg Monitoring (10/13/17 13:33) Iv Access Insert/Monitor (10/13/17 13:33) Oximetry (10/13/17 13:33) Oxygen Administration (10/13/17 13:33) Aspirin Chew (Aspirin Chew) (10/13/17 13:45) Morphine Inj (Morphine Inj) (10/13/17 13:45) Sodium Chloride 0.9% Flush (Ns Flush) (10/13/17 13:45) Nitroglycerin Sl (Nitrostat Sl) (10/13/17 13:45) Sodium Chlorid 0.9% 500 Ml Inj (Ns 500 M (10/13/17 13:45) CKMB (10/13/17 13:35) CKMB% (10/13/17 13:35) Acetaminophen (Tylenol) (10/13/17 14:15) Ed Discharge Order (10/13/17 14:42) Labs Laboratory Tests Test 10/13/17 13:35 White Blood Count 7.6 TH/MM3 Red Blood Count 5.41 MIL/MM3 Hemoglobin 11.6 GM/DL Hematocrit 37.8 % Mean Corpuscular Volume 69.8 FL Mean Corpuscular Hemoglobin 21.5 PG Mean Corpuscular Hemoglobin Concent 30.8 % Red Cell Distribution Width 15.2 % Platelet Count 251 TH/MM3 Mean Platelet Volume 8.8 FL Neutrophils (%) (Auto) 71.7 % Lymphocytes (%) (Auto) 17.2 % Monocytes (%) (Auto) 8.3 % Eosinophils (%) (Auto) 2.4 % Basophils (%) (Auto) 0.4 % Neutrophils # (Auto) 5.5 TH/MM3 Lymphocytes # (Auto) 1.3 TH/MM3 Monocytes # (Auto) 0.6 TH/MM3 Eosinophils # (Auto) 0.2 TH/MM3 Basophils # (Auto) 0.0 TH/MM3 CBC Comment AUTO DIFF Differential Comment AUTO DIFF CONFIRMED Platelet Estimate NORMAL Platelet Morphology Comment NORMAL Rouleau PRESENT Red Cell Morphology Comment NORMAL Prothrombin Time 10.9 SEC Prothromb Time International Ratio 1.1 RATIO Activated Partial Thromboplast Time 31.4 SEC Blood Urea Nitrogen 35 MG/DL Creatinine 2.30 MG/DL Random Glucose 81 MG/DL Total Protein 7.6 GM/DL Albumin 3.1 GM/DL Calcium Level 8.8 MG/DL Magnesium Level 2.1 MG/DL Alkaline Phosphatase 101 U/L Aspartate Amino Transf (AST/SGOT) 23 U/L Alanine Aminotransferase (ALT/SGPT) 23 U/L Total Bilirubin 0.3 MG/DL Sodium Level 141 MEQ/L Potassium Level 3.9 MEQ/L Chloride Level 108 MEQ/L Carbon Dioxide Level 26.8 MEQ/L Anion Gap 6 MEQ/L Estimat Glomerular Filtration Rate 37 ML/MIN Total Creatine Kinase 455 U/L Creatine Kinase MB 6.7 NG/ML Creatine Kinase MB % 1.5 % Troponin I 0.03 NG/ML Lipase 323 U/L MDM Medical Decision Making Medical Screen Exam Complete: Yes Emergency Medical Condition: Yes Medical Record Reviewed: Yes Differential Diagnosis NSTEMI, unstable angina, coronary vasospasm, PE, PTX, aortic dissection, pericarditis, myocarditis, endocarditis, PNA, esophageal disease, aneurysm, musculoskeletal etiologies, anxiety, cocaine/sympathomimetic abuse Narrative Course CBC & BMP Diagram 10/13/17 13:35 Total Protein 7.6, Albumin 3.1 L, Calcium Level 8.8, Magnesium Level 2.1, Alkaline Phosphatase 101, Aspartate Amino Transf (AST/SGOT) 23, Alanine Aminotransferase (ALT/SGPT) 23, Total Bilirubin 0.3 EKG shows a sinus rhythm with a rate of 67 no ischemic injury pattern Tn 0.03 EKG shows no ischemic injury pattern, sinus rhythm Troponin is typically 0.03 for this patient. The mild renal insufficiency is also unchanged from priors. The patient had a coronary catheterization within the past 12 months. The coronaries were clean at that time according to the patient who is reasonably good historian. In this scenario the patient could be sent to chest pain center given his age and risk factors however that is for very low risk chest pain. The patient prefers not to stay in any case and has follow-up with his primary care provider and states he will make an appointment for tomorrow. in this scenario the patient is ready for discharge. Diagnosis Primary Impression: Chest pain Qualified Codes: R07.9 - Chest pain, unspecified Referrals: Primary Care Physician 1 day Med/Other Pt SpecificInfo: No Change to Meds Disposition: 01 DISCHARGE HOME Condition: Stable Francisco Doyle MD October 13, 2017 13:43
[2017-10-13] MEDS ORDERED: SODIUM CHLORIDE 0.9% FLUSH 10 ML FLUSH IVF PRN (13:45)
[2017-10-13] MEDS ORDERED: ASPIRIN 81 MG CHEW TAB PO ONE (13:45)
[2017-10-13] MEDS: NITROGLYCERIN 0.4 MG SL 25 TABS/BTL SL SCH ×3 (13:45→14:05)
[2017-10-13] MEDS ORDERED: MORPHINE SULFATE 4 MG/ML INJ IV PUSH ONE (13:45)
[2017-10-13] MEDS ORDERED: SODIUM CHLORID 0.9% 500 ML INJ 500 ML IV ONE (13:45)
[2017-10-13 13:48] LABS: AUTOMATED NEUTROPHIL # 5.5 TH/MM3 (1.8-7.7); BASOPHIL % 0.4 % (0.0-2.0); EOSINOPHIL # 0.2 TH/MM3 (0-0.4); EOSINOPHIL % 2.4 % (0.0-4.0); HEMATOCRIT 37.8 % (39.0-51.0); HEMOGLOBIN 11.6 GM/DL (13.0-17.0); LYMPH % 17.2 % (9.0-44.0); LYMPHOCYTE # 1.3 TH/MM3 (1.0-4.8); MEAN CELL VOLUME 69.8 FL (80.0-100.0); MEAN CORPUSCULAR HEMOGLOBIN 21.5 PG (27.0-34.0); MEAN CORPUSCULAR HGB CONC 30.8 % (32.0-36.0); MEAN PLATELET VOLUME 8.8 FL (7.0-11.0); MONO % 8.3 % (0.0-8.0); MONOCYTE # 0.6 TH/MM3 (0-0.9); NEUT % 71.7 % (16.0-70.0); PLATELET COUNT 251 TH/MM3 (150-450); RED BLOOD COUNT 5.41 MIL/MM3 (4.50-5.90); RED CELL DISTRIBUTION WIDTH 15.2 % (11.6-17.2); WHITE BLOOD COUNT 7.6 TH/MM3 (4.0-11.0)
[2017-10-13 13:52] VITALS: BP 173/83; PULSE 71; RESP 16; O2SAT 98
[2017-10-13 14:01] LABS: CHLORIDE 108 MEQ/L (98-107); SODIUM (NA) 141 MEQ/L (136-145)
[2017-10-13 14:04] VITALS: BP 176/80; PULSE 64; RESP 16; O2SAT 96
[2017-10-13 14:04] LABS: INTERNATIONAL NORMALIZED RATIO 1.1 RATIO; PROTHROMBIN TIME - PATIENT 10.9 SEC (9.8-11.6)
[2017-10-13 14:05] LABS: CALCIUM 8.8 MG/DL (8.5-10.1)
[2017-10-13 14:06] LABS: ALBUMIN 3.1 GM/DL (3.4-5.0); BICARBONATE 26.8 MEQ/L (21.0-32.0); BLOOD UREA NITROGEN 35 MG/DL (7-18); GLUCOSE,RANDOM 81 MG/DL (74-106); MAGNESIUM 2.1 MG/DL (1.5-2.5)
[2017-10-13 14:08] LABS: ALT (GPT) 23 U/L (12-78)
[2017-10-13 14:09] LABS: AST (GOT) 23 U/L (15-37); GLOMERULAR FILTRATION RATE 37 ML/MIN (>89)
[2017-10-13 14:10] LABS: TOTAL BILIRUBIN ADULT 0.3 MG/DL (0.2-1.0); TOTAL PROTEIN 7.6 GM/DL (6.4-8.2)
[2017-10-13 14:11] LABS: ALKALINE PHOSPHATASE 101 U/L (45-117)
--- NOTE | 2017-10-13 14:11 | RADRPT ---
EXAM DATE: 10/13/2017 1:47 PM EDT AGE/SEX: 51 years / Male INDICATIONS: Chest pain, shortness of breath, and nausea. CLINICAL DATA: This is the patient's initial encounter. Patient reports that signs and symptoms have been present for 1 week and indicates a pain score of 8/10. MEDICAL/SURGICAL HISTORY: None. None. COMPARISON: PO, CHEST SINGLE AP, 08/05/2017. . FINDINGS: A single AP view of the chest demonstrates the lungs to be symmetrically aerated without evidence of mass, infiltrate or effusion. Minimal basilar atelectasis. The cardiomediastinal contours are unrema rkable. Osseous structures are intact. CONCLUSION: Minimal basilar atelectasis. Electronically signed by: Justin Boles MD 10/13/2017 2:10 PM EDT
[2017-10-13 14:14] LABS: TROPONIN I 0.03 NG/ML (0.02-0.05)
[2017-10-13] MEDS ORDERED: ACETAMINOPHEN 325 MG TAB PO ONE (14:15)
[2017-10-13 14:16] VITALS: BP 176/79; PULSE 72; RESP 16; TEMP 98
[2017-10-13 14:23] LABS: ROULEAUX PRESENT (NORMAL)
[2017-10-13 14:47] VITALS: BP 163/88; PULSE 62; RESP 18; O2SAT 98
--- NOTE | 2017-10-14 18:04 | EKG ---
Date Performed: 10/13/2017 Time Performed: 13:24:28 PTAGE: 51 years EKG: Sinus rhythm POSSIBLE LEFT ATRIAL ENLARGEMENT NONSPECIFIC T-WAVE ABNORMALITY BORDERLINE ECG Since the PREVIOUS TRACING , no significant change noted PREVIOUS TRACIN04/25/2017 14.40 DOCTOR: Dorina Sharma Interpretating Date/Time 10/14/2017 17:59:05
== END 2017-10-13 14:59 | disposition home or self-care (01) ==
LOC: PHED 13:20
DX: R07.9 Chest pain, unspecified (principal); I10 Essential (primary) hypertension; E11.65 Type 2 diabetes mellitus with hyperglycemia; R94.31 Abnormal electrocardiogram [ECG] [EKG]; G62.9 Polyneuropathy, unspecified
CPT/HCPCS: 71045; 80053; 82550; 82552; 83690; 83735; 84484; 85025; 85610; 85730; 93005; 96361; 96374; 99285; J2270; J7040

== ENCOUNTER 2017-11-26 10:18 | Observation (INO) ==
--- NOTE | 2017-11-26 11:05 | ED ---
HPI General Chief Complaint: Chest Pain Stated Complaint: Acid reflux bothering chest x 3 hrs Time Seen by Provider: 11/26/17 10:51 Source: patient Mode of arrival: ambulatory History of Present Illness HPI narrative: This patient complains of chest pain. Location is left upper chest. He says he has had on and off for many months but never had it evaluated. He has not mentioned it to his doctor. Today was bothering him more than usual so he came to the ER. No injury. He is not short of breath. Symptoms are not exertional. He describes as an aching pressure. Severity is moderate. No alleviating factors. No exacerbating factors. Complete Quality Measures for STEMI Alert Patients Related Data Home Medications Medication Instructions Recorded Confirmed amlodipine 5 mg PO DAILY 11/26/17 11/26/17 atorvastatin 40 mg PO DAILY 11/26/17 11/26/17 insulin detemir U-100 [Levemir 36 unit SUB-Q BID 11/26/17 11/26/17 U-100 Insulin] insulin lispro [Humalog U-100 12 unit SUB-Q TID 11/26/17 11/26/17 Insulin] metoprolol tartrate 25 mg PO DAILY 11/26/17 11/26/17 Allergies Allergy/AdvReac Type Severity Reaction Status Date / Time metformin Allergy Severe nausea and Verified 11/26/17 10:51 vomiting TETININ Allergy Unknown Rash Uncoded 11/26/17 10:51 *MDRO Multi-Drug Resistant AdvReac Unknown none Uncoded 11/26/17 10:51 Organism Review of Systems Except as stated in HPI: all other systems reviewed are negative PMFSH Medical History Medical History Amputated toe of left foot (Acute) Blood cholesterol increased compared with prior measurement (Acute) Diabetic acidosis, type II (Acute) Gastric ulcer (Acute) Hypertension (Acute) Reflux gastritis (Acute) Social History Social History Substance History: No History of Abuse Second Hand Smoke Exposure: No Smoking Status: Never smoker How Often Do You Have a Drink Containing Alcohol: Never Recent Travel in [place] within the Last 8 Weeks: No Recent Out of Country Travel within the Last 8 Weeks: No Exam Narrative Exam Narrative: GENERAL: Well-nourished, well-developed patient in no apparent distress. SKIN: Focused skin assessment reveals no rash and nodules. Skin is Warm and dry. HEAD: Atraumatic. Normocephalic. EYES: Pupils equal and round. No scleral icterus. No injection or drainage. ENT: No nasal bleeding or discharge. Mucous membranes pink and moist. NECK: Trachea midline. No JVD. CARDIOVASCULAR: Regular rate and rhythm. No murmur appreciated. RESPIRATORY: No accessory muscle use. Clear to auscultation. Breath sounds equal bilaterally. GASTROINTESTINAL: Abdomen soft, non-tender, nondistended. Hepatic and splenic margins not palpable. MUSCULOSKELETAL: No obvious deformities. No clubbing. No cyanosis. No edema. NEUROLOGICAL: Awake and alert. No obvious cranial nerve deficits. Motor grossly within normal limits. Normal speech. PSYCHIATRIC: Appropriate mood and affect; insight and judgment normal. Course Initial Documented Vital Signs Temperature 97.9 F 11/26/17 10:34 Pulse Rate 65 11/26/17 10:34 Respiratory Rate 16 11/26/17 10:34 Blood Pressure 164/86 H 11/26/17 10:34 Pulse Oximetry 99 11/26/17 10:34 Last Documented Vital Signs Temperature 97.9 F 11/26/17 10:34 Pulse Rate 54 L 11/26/17 11:40 Respiratory Rate 18 11/26/17 11:51 Blood Pressure 158/92 H 11/26/17 11:40 Pulse Oximetry 99 11/26/17 11:40 Medical Decision Making MDM Narrative Medical decision making narrative: IV placed and labs sent. I reviewed the EKG that shows sinus rhythm but there is no ST elevation I reviewed the chest x-ray I gave him aspirin and 2 pain pills This patient has multiple risk factors for coronary artery disease including diabetes and hypertension and hyperlipidemia. He reports having stress testing a few years ago but I think he will need 23 hour observation in the chest pain center. I gave him 8 units IV regular insulin. I discussed with hospitalist. Differential Diagnosis Differential Diagnosis: Differential diagnosis includes MS, angina, pericarditis , pleurisy, GERD, anxiety. Medical Records Medical records reviewed: Yes I reviewed the patient's medical records. Lab Data Lab results reviewed: Yes I reviewed the patient's lab results. Lab results narrative: Notable for hyperglycemia Result diagrams: 11/26/17 11:23 11/26/17 11:23 Lab Results 11/26/17 11/26/17 11/26/17 Range/Units 11:23 11:23 11:23 CBC w Diff Slide review pending WBC 5.9 (4.0-11.0) th/mm3 RBC 5.69 (4.50-5.90) mil/mm3 Hgb 12.6 L (13.0-17.0) gm/dL Hct 40.5 (39.0-51.0) % MCV 71.3 L (80.0-100.0) fL MCH 22.1 L (27.0-34.0) pg MCHC 31.0 L (32.0-36.0) % RDW 13.9 (11.6-17.2) % Plt Count 221 (150-450) th/mm3 MPV 9.0 (7.0-11.0) fL Neut % (Auto) 77.7 H (16.0-70.0) % Lymph % (Auto) 15.5 (9.0-44.0) % [place] % (Auto) 4.5 (0.0-8.0) % Eos % (Auto) 1.9 (0.0-4.0) % Baso % (Auto) 0.4 (0.0-2.0) % Neut # (Auto) 4.6 (1.8-7.7) th/mm3 Lymph # (Auto) 0.9 L (1.0-4.8) th/mm3 [place] # (Auto) 0.3 (0.0-0.9) th/mm3 Eos # (Auto) 0.1 (0.0-0.4) th/mm3 Baso # (Auto) 0.0 (0.0-0.2) th/mm3 WBC Differential . Diff Scan Auto diff confirmed Differential Comment . Platelet Estimate Normal (Normal) Platelet Morphology Normal (Normal) PT 10.9 (9.8-11.6) sec INR 1.1 Ratio APTT 30.3 H (24.3-30.1) sec Sodium 139 (136-145) meq/L Potassium 4.2 (3.5-5.1) meq/L Chloride 103 (98-107) meq/L Carbon Dioxide 26.5 (21.0-32.0) meq/L Anion Gap 10 (5-15) meq/L BUN 28 H (7-18) mg/dL Creatinine 2.20 H (0.60-1.30) mg/dL Estimated GFR 38 L (>89) mL/min Random Glucose 330 H (74-106) mg/dL Calcium 8.6 (8.5-10.1) mg/dL Magnesium 2.0 (1.5-2.5) mg/dL Total Creatine Kinase 318 H (39-308) U/L CK-MB (CK-2) 3.5 (0.5-3.6) ng/mL CK-MB (CK-2) % 1.1 (0.0-4.0) % Troponin I 0.03 (0.02-0.05) ng/mL Imaging Data Radiologist's impression: ITS Impressions Chest X-Ray 11/26/17 10:59 CONCLUSION: No acute cardiopulmonary disease Discharge Plan Physicians Team ED Provider: Jose Ramon Fisher Primary Care Provider: Hafsa Jane Rxs /Orders / Referrals /Forms Prescriptions: No Action metoprolol tartrate 25 mg Tablet 25 mg PO DAILY RF: 0 atorvastatin 10 mg Tablet 40 mg PO DAILY RF: 0 amlodipine 5 mg Tablet 5 mg PO DAILY RF: 0 insulin lispro [Humalog U-100 Insulin] 100 unit/mL Solution 12 unit SUB-Q TID RF: 0 insulin detemir U-100 [Levemir U-100 Insulin] 100 unit/mL Solution 36 unit SUB-Q BID RF: 0 Discharge Interventions Interventions: Vital Signs Last Done: 11/26/17 11:40 Status ED Status: With Doctor
--- NOTE | 2017-11-26 11:13 | XR ---
EXAM DATE: 11/26/2017 11:09 AM EDT AGE/SEX: 52 years / Male INDICATIONS: Left upper chest pain for a few months but became worse today. CLINICAL DATA: This is the patient's initial encounter. Patient reports that signs and symptoms have been present for 2 months and indicates a pain score of 8/10. MEDICAL/SURGICAL HISTORY: Hypertension. Diabetes. . Toe amputation. COMPARISON: [facility], CHEST SINGLE AP, 10/13/2017. . FINDINGS: A single AP view of the chest demonstrates the lungs to be symmetrically aerated without evidence of mass, infiltrate or effusion. Mild cardiomegaly. The cardiomediastinal contours are unremarkable. O sseous structures are intact. CONCLUSION: No acute cardiopulmonary disease Electronically signed by: Robson Mcwilliams MD 11/26/2017 11:12 AM EDT
[2017-11-26 11:38] LABS: Baso % (Auto) 0.4 % (0.0-2.0); Eos # (Auto) 0.1 th/mm3 (0.0-0.4); Eos % (Auto) 1.9 % (0.0-4.0); Hematocrit 40.5 % (39.0-51.0); Hemoglobin 12.6 gm/dL (13.0-17.0); Lymph # (Auto) 0.9 th/mm3 (1.0-4.8); Lymph % (Auto) 15.5 % (9.0-44.0); Mean Corpuscular Hemoglobin 22.1 pg (27.0-34.0); Mean Corpuscular Volume 71.3 fL (80.0-100.0); Mono # (Auto) 0.3 th/mm3 (0.0-0.9); Mono % (Auto) 4.5 % (0.0-8.0); Neut # (Auto) 4.6 th/mm3 (1.8-7.7); Neut % (Auto) 77.7 % (16.0-70.0); Platelet Count 221 th/mm3 (150-450); Red Blood Count 5.69 mil/mm3 (4.50-5.90); Red Cell Distribution Width 13.9 % (11.6-17.2); White Blood Count 5.9 th/mm3 (4.0-11.0)
[2017-11-26 11:40] LABS: Potassium 4.2 meq/L (3.5-5.1)
[2017-11-26 11:44] LABS: Calcium 8.6 mg/dL (8.5-10.1); Carbon Dioxide 26.5 meq/L (21.0-32.0)
[2017-11-26 11:47] LABS: Activated Partial Thrombo Time 30.3 sec (24.3-30.1); INR 1.1 Ratio; Prothrombin Time 10.9 sec (9.8-11.6)
[2017-11-26 11:53] LABS: Troponin I 0.03 ng/mL (0.02-0.05)
[2017-11-26 12:02] LABS: CKMB Percent 1.1 % (0.0-4.0); Creatine Kinase MB 3.5 ng/mL (0.5-3.6)
[2017-11-26 12:13] LABS: Platelet Estimate Normal (Normal); Platelet Morphology Normal (Normal)
--- NOTE | 2017-11-26 12:26 | ECG ---
Date Performed: 11/26/2017 Time Performed: 10:39:06 PTAGE: 52 years EKG: Sinus rhythm WITH FIRST DEGREE AV BLOCK LEFTWARD AXIS MINIMAL VOLTAGE CRITERIA FOR LVH, CONSIDER NORMAL VARIANT N ONSPECIFIC T-WAVE ABNORMALITY ABNORMAL ECG INTERPRETATION BASED ON A DEFAULT AGE OF 89 YEARS PREVIOUS TRACING : 10/13/2017 13.24 No change from previous tracing noted. DOCTOR: Clint Neal Interpretating Date/Time 11/26/2017 12:25:24
[2017-11-26] MEDS ORDERED: Temazepam 15 MG Capsule PO PRN (13:24)
[2017-11-26] MEDS ORDERED: Dextrose 50% in Water 50 ML Vial IV.PUSH PRN (13:32)
[2017-11-26] MEDS: Sod Chloride 0.9% Inj 1,000 ML IV.CONT SCH (13:49)
--- NOTE | 2017-11-26 14:56 | P.HP ---
History of Present Illness Primary Care Physician: TIESHA Roche Chief Complaint: Chest pain History of Present Illness: 52-year-old male with known history of hypertension, hyperlipidemia, diabetes, gastroesophageal reflux, chronic kidney disease who presented to the hospital because of chest discomfort. Patient states that he has been experiencing intermittent chest discomfort for at least a year. He does have increased risk factors and he has undergone previous cardiac workup. Patient did have a stress test done in 2014 which was unremarkable. Patient underwent cardiac catheterization in 2010 which was unremarkable. Patient has not had any other workup since then. He has not notified his primary doctor of his intermittent chest discomfort. Patient indicates that he experiences pain at any time. It is not specific to any day, week, month. Is not worsened or antagonized by exertion. The pain is located over on the left side of his chest and radiates into his left arm, he describes it as 8/10 on a pain scale. He states he does get intermittent nausea and diaphoresis. He did have some vomiting this morning. He denies any shortness of breath, dyspnea, lightheadedness, dizziness. Because of patient's increased risk factors is recommended by the ER physician that the patient be observed in the chest pain center for further evaluation and management - Diagnosis (1) Atypical chest pain (2) Diabetes (3) Chronic kidney disease, stage 3 Review of Systems All other systems reviewed negative except as stated in HPI Cardiovascular: Reports chest pain Gastrointestinal: Reports nausea, Reports vomiting PMFSH - History History Provided By: Patient - Medical History Medical History: Medical History (Last Updated 11/26/17 @ 14:50 by ZAK Ramírez) Amputated toe of left foot Blood cholesterol increased compared with prior measurement Chronic back pain Chronic kidney disease, stage 3 Degenerative joint disease of knee Diabetic acidosis, type II Diabetic retinopathy Gastric ulcer Hiatal hernia Hyperlipemia Hypertension Macular degeneration Obesity (BMI 30-39.9) Peripheral neuropathy Reflux gastritis - Surgical History Surgical History: Surgical History (Last Updated 11/26/17 @ 14:49 by ZAK Ramírez) History of cardiac catheterization History of esophagogastroduodenoscopy History of removal of cyst - Family History Family History: Family History (Last Updated 11/26/17 @ 14:49 by ZAK Ramírez) Mother Family history of hypertension Father Family history of hypertension - Tobacco History Second Hand Smoke Exposure: No Smoking Status: Never smoker - Alcohol History How Often Do You Have a Drink Containing Alcohol: Never - Substance Use History Substance History: No History of Abuse - Travel History Recent Travel in the [place] Within the Last 8 Weeks: No Recent Travel Out of the Country Within the Last 8 Weeks: No - Immunization History Tetanus Immunization: Unsure Hx Influenza Vaccine This Season: Yes Medications and Allergies Active Medications: Active Medications Acetaminophen (Tylenol) 500 mg PO Q4H PRN PRN Reason: HEADACHE Hydrocodone Bitart/Acetaminophen ([place] 7.5/325) 1 tab PO Q4H PRN PRN Reason: PAIN SCALE 1 TO 7 Last Admin: 11/26/17 13:48 Dose: 1 tab Aspirin (Aspirin) 325 mg PO DAILY MOE Dextrose (D50w Vial) 50 ml IV.PUSH UNSCH PRN PRN Reason: PER HYPOGLYCEMIA PROTOCOL Glucagon (Glucagon Inj) 1 mg OTHER PRN PRN PRN Reason: for Hypoglycemia Protocol Sodium Chloride (Ns Inj) 1,000 mls @ 100 mls/hr IV.CONT .Q10H MOE Last Admin: 11/26/17 13:49 Dose: 100 mls/hr Insulin Aspart (Novolog Insulin Suppl Scale Inj) 0 unit SQ ACHS MOE; Protocol Morphine Sulfate (Morphine Inj) 2 mg IV.PUSH Q4H PRN PRN Reason: PAIN SCALE 8 TO 10 Nitroglycerin (Nitrostat Sl) 0.4 mg SL Q5M PRN PRN Reason: CHEST PAIN Ondansetron HCl (Zofran Inj) 4 mg IV.PUSH Q6H PRN PRN Reason: NAUSEA Sodium Chloride (Ns Flush) 2 ml IV.FLUSH UNSCH PRN PRN Reason: FLUSH AFTER USING IV ACCESS Last Admin: 11/26/17 12:52 Dose: 2 ml Sodium Chloride (Ns Flush) 2 ml IV.FLUSH BID MOE Sodium Chloride (Ns Flush) 2 ml IV.FLUSH PRN PRN PRN Reason: FLUSH AFTER USING IV ACCESS Temazepam (Restoril) 15 mg PO HS PRN PRN Reason: INSOMNIA Allergies Allergy/AdvReac Type Severity Reaction Status Date / Time metformin Allergy Severe nausea and Verified 11/26/17 10:51 vomiting TETININ Allergy Unknown Rash Uncoded 11/26/17 10:51 *MDRO Multi-Drug Resistant AdvReac Unknown none Uncoded 11/26/17 10:51 Organism Home Medications Medication Instructions Recorded Confirmed Type amlodipine 5 mg PO DAILY 11/26/17 11/26/17 History atorvastatin 40 mg PO DAILY 11/26/17 11/26/17 History insulin detemir U-100 [Levemir 36 unit SUB-Q BID 11/26/17 11/26/17 History U-100 Insulin] insulin lispro [Humalog U-100 12 unit SUB-Q TID 11/26/17 11/26/17 History Insulin] metoprolol tartrate 25 mg PO DAILY 11/26/17 11/26/17 History Exam Vital signs: Vital Signs 11/26/17 10:34 11/26/17 10:59 11/26/17 11:05 Temperature 97.9 F Pulse Rate 65 64 Respiratory Rate 16 18 Blood Pressure 164/86 H 151/88 H Pulse Oximetry 99 99 99 11/26/17 11:40 11/26/17 11:50 11/26/17 11:51 Temperature Pulse Rate 54 L Respiratory Rate 18 18 18 Blood Pressure 158/92 H Pulse Oximetry 99 11/26/17 13:24 11/26/17 13:34 11/26/17 14:06 Temperature Pulse Rate 61 61 Respiratory Rate 18 18 Blood Pressure 150/82 H 145/79 H Pulse Oximetry 98 99 98 11/26/17 14:30 Temperature 97.1 F L Pulse Rate 60 Respiratory Rate 20 Blood Pressure 157/84 H Pulse Oximetry 98 Intake & Output 11/25/17 11/26/17 11/26/17 18:59 06:59 18:59 Weight 127.9 kg Other: Weight On Admission 127.9 kg Results - Labs CBC & Chem 7: 11/26/17 11:23 11/26/17 11:23 Labs: Laboratory Results - last 24 hr 11/26/17 11/26/17 11/26/17 11:23 11:23 11:23 CBC w Diff Slide review pending WBC 5.9 RBC 5.69 Hgb 12.6 L Hct 40.5 MCV 71.3 L MCH 22.1 L MCHC 31.0 L RDW 13.9 Plt Count 221 MPV 9.0 Neut % (Auto) 77.7 H Lymph % (Auto) 15.5 [place] % (Auto) 4.5 Eos % (Auto) 1.9 Baso % (Auto) 0.4 Neut # (Auto) 4.6 Lymph # (Auto) 0.9 L [place] # (Auto) 0.3 Eos # (Auto) 0.1 Baso # (Auto) 0.0 WBC Differential . Diff Scan Auto diff confirmed Differential Comment . Platelet Estimate Normal Platelet Morphology Normal PT 10.9 INR 1.1 APTT 30.3 H Sodium 139 Potassium 4.2 Chloride 103 Carbon Dioxide 26.5 Anion Gap 10 BUN 28 H Creatinine 2.20 H Estimated GFR 38 L Random Glucose 330 H Calcium 8.6 Magnesium 2.0 Total Creatine Kinase 318 H CK-MB (CK-2) 3.5 CK-MB (CK-2) % 1.1 Troponin I 0.03 - Imaging Impressions Chest X-Ray 11/26/17 10:59 CONCLUSION: No acute cardiopulmonary disease Caprini VTE Risk Assessment Caprini VTE Risk Assessment: Moderate/High Risk (score >= 2) Caprini Risk Assessment Model: Point Value = 1 Point Value = 2 Point Value = 3 Point Value = 5 Age 41-60 Minor surgery BMI > 25 kg/m2 Swollen legs Varicose veins or History of unexplained or recurrent spontaneous Oral contraceptives or hormone replacement Sepsis (< 1 month) Serious lung disease, including pneumonia (< 1 month) Abnormal pulmonary function Acute myocardial infarction Congestive heart failure (< 1 month) History of inflammatory bowel disease Medical patient at bed rest Age 61-74 Arthroscopic surgery Major open surgery (> 45 min) Laparoscopic surgery (> 45 min) Malignancy Confined to bed (> 72 hours) Immobilizing plaster cast Central venous access Age >= 75 History of VTE Family history of VTE Factor V Leiden Prothrombin [id number] Lupus anticoagulant Anticardiolipin antibodies Elevated serum homocysteine Heparin-induced thrombocytopenia Other congenital or acquired thrombophilia Stroke (< 1 month) Elective arthroplasty Hip, pelvis, or leg fracture Acute spinal cord injury (< 1 month) Prophylaxis Regimen: Total Risk Factor Score Risk Level Prophylaxis Regimen 0-1 Low Early ambulation 2 Moderate Order ONE of the following: *Sequential Compression Device (SCD) *Heparin 5000 units SQ BID 3-4 Higher Order ONE of the following medications: *Heparin 5000 units SQ TID *Enoxaparin/Lovenox 40 mg SQ daily (WT < 150 kg, CrCl > 30 mL/min) *Enoxaparin/Lovenox 30 mg SQ daily (WT < 150 kg, CrCl > 10-29 mL/min) *Enoxaparin/Lovenox 30 mg SQ BID (WT < 150 kg, CrCl > 30 mL/min) AND/OR *Sequential Compression Device (SCD) 5 or more Highest Order ONE of the following medications: *Heparin 5000 units SQ TID (Preferred with Epidurals) *Enoxaparin/Lovenox 40 mg SQ daily (WT < 150 kg, CrCl > 30 mL/min) *Enoxaparin/Lovenox 30 mg SQ daily (WT < 150 kg, CrCl > 10-29 mL/min) *Enoxaparin/Lovenox 30 mg SQ BID (WT < 150 kg, CrCl > 30 mL/min) AND *Sequential Compression Device (SCD) Assessment and Plan - Assessment (1) Atypical chest pain Code(s): R07.89 - Other chest pain Status: Acute Plan: -Patient does have increased risk factors to include age, male, obesity with BMI 39.3, hypertension, hypovolemia, diabetes, family history of heart disease -We will continue ruled patient out with serial cardiac enzymes -Serial EKGs show sinus rhythm with first-degree AV block which does not have any changes from 10/13/17 -Myocardial perfusion study will be performed to rule out any underlying ischemia -Patient continue on aspirin, nitroglycerin as needed, [place]/morphine for pain control -Continue monitor telemetry -Patient's hypertension, hyperlipidemia will continue his home medications: To include metoprolol, Norvasc, atorvastatin (2) Diabetes Code(s): E11.9 - Type 2 diabetes mellitus without complications Status: Chronic Plan: -Diabetic diet -Accu-Cheks with sliding scale insulin (3) Chronic kidney disease, stage 3 Code(s): N18.3 - Chronic kidney disease, stage 3 (moderate) Status: Chronic Plan: -Renal functions appear to be stable -Continue monitor renal function -Avoid nephrotoxins - Plan DVT prevention -Sequential compression devices Discharge Planning: Discharge home in stable condition Activity: Ad cherelle. Diet: Diabetic diet Medication per medication reconciliation Follow-up with primary medical doctor in 1 week
[2017-11-26 15:32] LABS: Troponin I 0.03 ng/mL (0.02-0.05)
--- NOTE | 2017-11-26 15:33 | ECG ---
Date Performed: 11/26/2017 Time Performed: 14:57:55 PTAGE: 52 years EKG: SINUS BRADYCARDIA BORDERLINE LEFT AXIS DEVIATION LEFT VENTRICULAR HYPERTROPHY AND ST-T LAWSON GE ABNORMAL ECG PREVIOUS TRACING : 11/26/2017 10.39 No significant change from previous tracing noted. DOCTOR: Clint Neal Interpretating Date/Time 11/26/2017 15:31:31
[2017-11-26] MEDS: Morphine Sulfate Inj 2 MG/ML Vial IV.PUSH PRN ×2 (15:56→19:45)
[2017-11-26 18:19] LABS: Troponin I 0.03 ng/mL (0.02-0.05)
--- NOTE | 2017-11-26 23:11 | ECG ---
Date Performed: 11/26/2017 Time Performed: 17:43:07 PTAGE: 52 years EKG: SINUS BRADYCARDIA BORDERLINE LEFT AXIS DEVIATION VOLTAGE CRITERIA FOR LVH NONSPECIFIC T-WAV E ABNORMALITY ABNORMAL ECG PREVIOUS TRACING : 11/26/2017 14.57 No significant change from previous tracing noted. DOCTOR: Clint Neal Interpretating Date/Time 11/26/2017 23:09:15
[2017-11-27] MEDS: Insulin NovoLOG Aspart Correctional Sugar Inj SQ SCH ×3 (02:15→21:06)
[2017-11-27] MEDS: Sod Chloride 0.9% Inj 1,000 ML IV.CONT SCH ×3 (02:36→21:22)
[2017-11-27 07:38] LABS: Baso % (Auto) 0.6 % (0.0-2.0); Eos # (Auto) 0.1 th/mm3 (0.0-0.4); Eos % (Auto) 1.7 % (0.0-4.0); Hematocrit 40.4 % (39.0-51.0); Hemoglobin 12.4 gm/dL (13.0-17.0); Lymph # (Auto) 1.4 th/mm3 (1.0-4.8); Lymph % (Auto) 22.2 % (9.0-44.0); Mean Corpuscular Hemoglobin 21.1 pg (27.0-34.0); Mean Corpuscular Volume 68.9 fL (80.0-100.0); Mono # (Auto) 0.4 th/mm3 (0.0-0.9); Mono % (Auto) 6.4 % (0.0-8.0); Neut # (Auto) 4.2 th/mm3 (1.8-7.7); Neut % (Auto) 69.1 % (16.0-70.0); Platelet Count 200 th/mm3 (150-450); Potassium 4.4 meq/L (3.5-5.1); Red Blood Count 5.86 mil/mm3 (4.50-5.90); Red Cell Distribution Width 14.7 % (11.6-17.2); White Blood Count 6.1 th/mm3 (4.0-11.0)
[2017-11-27 07:42] LABS: Calcium 8.8 mg/dL (8.5-10.1)
[2017-11-27 07:43] LABS: Carbon Dioxide 27.7 meq/L (21.0-32.0)
[2017-11-27 07:51] LABS: Mean Corpuscular HGB Conc 30.7 % (32.0-36.0)
[2017-11-27 08:50] LABS: Platelet Estimate Normal (Normal); Platelet Morphology Normal (Normal)
--- NOTE | 2017-11-27 08:54 | P.PN ---
Subjective Interval history: Patient seen and examined today for follow-up on chest pain. Patient had a headache last night and it was noticed that his blood pressure was 205/95. Blood pressure much improved this morning. Denies any recurrent chest pain. Patient remains afebrile Physical Exam Vital signs: Vital Signs 11/26/17 10:34 11/26/17 10:59 11/26/17 11:05 Temperature 97.9 F Pulse Rate 65 64 Respiratory Rate 16 18 Blood Pressure 164/86 H 151/88 H Pulse Oximetry 99 99 99 11/26/17 11:40 11/26/17 11:50 11/26/17 11:51 Temperature Pulse Rate 54 L Respiratory Rate 18 18 18 Blood Pressure 158/92 H Pulse Oximetry 99 11/26/17 13:24 11/26/17 13:34 11/26/17 14:06 Temperature Pulse Rate 61 61 Respiratory Rate 18 18 Blood Pressure 150/82 H 145/79 H Pulse Oximetry 98 99 98 11/26/17 14:30 11/26/17 15:42 11/26/17 20:00 Temperature 97.1 F L 97.4 F L 96.6 F L Pulse Rate 60 62 64 Respiratory Rate 20 20 20 Blood Pressure 157/84 H 160/82 H 205/95 H Pulse Oximetry 98 98 97 11/26/17 20:56 11/27/17 00:00 11/27/17 04:00 Temperature 96.2 F L 96.7 F L Pulse Rate 65 57 L Respiratory Rate 20 20 Blood Pressure 168/75 H 154/74 H Pulse Oximetry 97 99 97 Intake & Output 11/26/17 11/27/17 11/27/17 18:59 06:59 18:59 Intake Total 440 / 440 1000 / 1000 Output Total 1850 / 1850 Balance 440 / 440 -850 / -850 Weight 127.9 kg Intake: IV 1000 / 1000 NS Inj 1,000 ML @ 100 mls/hr IV 1000 / 1000 .CONT .Q10H MOE Rx#:[id number] Oral 340 / 340 0 / 0 Oral Supplement 100 / 100 Output: Urine 1849 / 1850 Other: Other Intake Source Saline Solution # Voids 1 Date of Last Bowel Movement 11/25/17 Weight On Admission 127.9 kg Narrative: GENERAL: Well-developed, well-nourished, in no acute distress. alert and orientated HEENT: Head is normocephalic without any lesions or masses noted. Facial features are symmetric. Eyes: Extraocular muscles are intact. Conjunctivae were clear. NECK: Supple without any masses. Trachea midline no deviation. No JVD, CARDIAC: Regular rhythm, regular rate. S1/S2 are heard. No murmurs gallops or rubs. LUNGS: Clear to auscultation bilaterally. No wheeze, rhonchi or rales. No use of accessory muscles on inspiration or expiration. ABDOMEN: Soft, nontender. Nondistended. Bowel sounds heard in all 4 quadrants. No organomegaly or masses. Negative rebound, negative guarding EXTREMITIES: No edema, pulses are equal bilaterally. No cyanosis or clubbing NEUROLOGY: Mood and affect appear appropriate. Cranial nerves II through XII grossly intact. Moving all extremities, speech clear Results - Labs CBC & Chem 7: 11/27/17 06:30 11/27/17 06:30 Laboratory Results - last 24 hr 11/26/17 11/26/17 11/26/17 11:23 11:23 11:23 CBC w Diff Slide review pending WBC 5.9 RBC 5.69 Hgb 12.6 L Hct 40.5 MCV 71.3 L MCH 22.1 L MCHC 31.0 L RDW 13.9 Plt Count 221 MPV 9.0 Neut % (Auto) 77.7 H Lymph % (Auto) 15.5 [place] % (Auto) 4.5 Eos % (Auto) 1.9 Baso % (Auto) 0.4 Neut # (Auto) 4.6 Lymph # (Auto) 0.9 L [place] # (Auto) 0.3 Eos # (Auto) 0.1 Baso # (Auto) 0.0 WBC Differential . Diff Scan Auto diff confirmed Differential Comment . Platelet Estimate Normal Platelet Morphology Normal PT 10.9 INR 1.1 APTT 30.3 H Sodium 139 Potassium 4.2 Chloride 103 Carbon Dioxide 26.5 Anion Gap 10 BUN 28 H Creatinine 2.20 H Estimated GFR 38 L POC Glucose Random Glucose 330 H Calcium 8.6 Magnesium 2.0 Total Creatine Kinase 318 H CK-MB (CK-2) 3.5 CK-MB (CK-2) % 1.1 Troponin I 0.03 11/26/17 11/26/17 11/26/17 14:57 17:45 19:43 CBC w Diff WBC RBC Hgb Hct MCV MCH MCHC RDW Plt Count MPV Neut % (Auto) Lymph % (Auto) [place] % (Auto) Eos % (Auto) Baso % (Auto) Neut # (Auto) Lymph # (Auto) [place] # (Auto) Eos # (Auto) Baso # (Auto) WBC Differential Diff Scan Differential Comment Platelet Estimate Platelet Morphology PT INR APTT Sodium Potassium Chloride Carbon Dioxide Anion Gap BUN Creatinine Estimated GFR POC Glucose 181 H Random Glucose Calcium Magnesium Total Creatine Kinase 287 279 CK-MB (CK-2) CK-MB (CK-2) % Troponin I 0.03 0.03 11/27/17 11/27/17 11/27/17 06:30 06:30 07:57 CBC w Diff Slide review pending WBC 6.1 RBC 5.86 Hgb 12.4 L Hct 40.4 MCV 68.9 L MCH 21.1 L MCHC 30.7 L RDW 14.7 Plt Count 200 MPV 10.0 Neut % (Auto) 69.1 Lymph % (Auto) 22.2 [place] % (Auto) 6.4 Eos % (Auto) 1.7 Baso % (Auto) 0.6 Neut # (Auto) 4.2 Lymph # (Auto) 1.4 [place] # (Auto) 0.4 Eos # (Auto) 0.1 Baso # (Auto) 0.0 WBC Differential . Diff Scan Auto diff confirmed Differential Comment . Platelet Estimate Normal Platelet Morphology Normal PT INR APTT Sodium 140 Potassium 4.4 Chloride 106 Carbon Dioxide 27.7 Anion Gap 6 BUN 24 H Creatinine 2.00 H Estimated GFR 43 L POC Glucose 273 H Random Glucose 273 H Calcium 8.8 Magnesium Total Creatine Kinase CK-MB (CK-2) CK-MB (CK-2) % Troponin I - Imaging Impressions Chest X-Ray 11/26/17 10:59 CONCLUSION: No acute cardiopulmonary disease Assessment and Plan - Assessment (1) Atypical chest pain Code(s): R07.89 - Other chest pain Status: Acute Plan: -Patient does have increased risk factors to include age, male, obesity with BMI 39.3, hypertension, hypovolemia, diabetes, family history of heart disease -We will continue ruled patient out with serial cardiac enzymes -Serial EKGs show sinus rhythm with first-degree AV block which does not have any changes from 10/13/17 -Myocardial perfusion study was performed and indicated small area of mild reversibility within the inferior wall ejection fraction 45%, intermediate risk -Patient continue on aspirin, beta-tanja, Norvasc, statin, add Nitropaste -Consult fulfillment specialist on-call for further recommendations -Discussed with fulfillment specialist who recommended patient be transferred to the main hospital for cardiac catheterization -Continue monitor telemetry -Patient's hypertension, hyperlipidemia will continue his home medications: To include metoprolol, Norvasc, atorvastatin (2) Diabetes Code(s): E11.9 - Type 2 diabetes mellitus without complications Status: Chronic Plan: -Diabetic diet -Accu-Cheks with sliding scale insulin (3) Chronic kidney disease, stage 3 Code(s): N18.3 - Chronic kidney disease, stage 3 (moderate) Status: Chronic Plan: -Renal functions continue to improve -Continue monitor renal function -Avoid nephrotoxins - Plan DVT prevention -Sequential compression devices
[2017-11-27] MEDS ORDERED: Regadenoson Inj 0.4 MG/5 ML Syringe IV.PUSH ONE (10:03)
--- NOTE | 2017-11-27 11:58 | NM ---
EXAM DATE: 11/27/2017 11:14 AM EDT AGE/SEX: 52 years / Male INDICATIONS:Angina. Unable to walk on treadmill Mid chest pain for one day. CLINICAL DATA: This is the patient's initial encounter. Patient reports that signs and symptoms have been present for 1 day and indicates a pain score of 5/10. MEDICAL/SURGICAL HISTORY: Hypertension. Diabetes mellitus type II. Renal failure, chronic. Um bilical hernia repair. COMPARISON: No prior exams available for comparison. No external comparison. DOSE: 11.0 mCi Tc 99m Myoview at rest 35.0 mCi [id number] at stress 0.4 mg Lexiscan STRESS SYMPTOMS: Shortness of breath. EJECTION FRACTION: 45 % TECHNIQUE: The patient underwent pharmacologic stress with infusion of prescribed dose. Continuous ECG tracing was monitored during stress. Gated SPECT imaging was performed after stress and conventi onal SPECT imaging was performed at rest. The examination was performed on a SPECT/CT scanner, both attenuation and non-corrected datasets were reviewed. FINDINGS: Distribution: The maximum perfused segment at stress is in the septal wall. Perfusion Study: Small reversible area of mild reversibility in the inferior wall. Gated Study: Global hypokinesia. The ejection fraction is calculated at 45%. RISK CATEGORY: Intermediate (1-3 % Annual Mortality Rate) CONCLUSION: 1. Small area of mild reversibility within the inferior wall. 2. Ejection fraction 45%. Electronically signed by: Robson Mcwilliams MD 11/27/2017 11:57 AM EDT
[2017-11-27] MEDS: Metoprolol Tartrate 25 MG Tablet PO SCH (14:39)
[2017-11-27] MEDS: Aspirin 325 MG Tablet PO SCH (15:34)
[2017-11-27] MEDS: amLODIPine 5 MG Tablet PO SCH ×2 (15:35→21:22)
[2017-11-27] MEDS: Acetaminophen 500 MG Tablet PO PRN (23:57)
[2017-11-28] MEDS: Insulin NovoLOG Aspart Correctional Sugar Inj SQ SCH ×6 (03:06→20:55)
[2017-11-28] MEDS: Acetaminophen 500 MG Tablet PO PRN (05:31)
[2017-11-28 07:40] LABS: Chol/HDL Ratio 3.4 Ratio; HDL Cholesterol 46.7 mg/dL (40.0-60.0)
[2017-11-28] MEDS: Morphine Inj 4 MG/ML Vial IV.PUSH PRN ×2 (08:43→18:52)
[2017-11-28] MEDS: Aspirin 325 MG Tablet PO SCH (08:48)
[2017-11-28] MEDS: amLODIPine 5 MG Tablet PO SCH (08:49)
[2017-11-28] MEDS: Metoprolol Tartrate 25 MG Tablet PO SCH (08:49)
--- NOTE | 2017-11-28 10:53 | MB ---
cc: Toby Aguilar MD DATE: 11/28/2017 HISTORY OF PRESENT ILLNESS: Mr. Coffey is a 52-year-old black male with a history of hypertension, dyslipidemia, diabetes mellitus and chronic kidney disease. He has had intermittent chest discomfort for the last year. He had a stress test in 2014, which was unremarkable. He had a cardiac catheterization in 2010 which was unremarkable. The patient complains of left-sided chest discomfort radiating to the arm, which is moderate to severe. He also has intermittent nausea and diaphoresis. PAST MEDICAL HISTORY: Positive for chronic kidney disease, dyslipidemia, chronic back pain, degenerative joint disease, diabetes, diabetic retinopathy, gastric ulcer, hiatal hernia, dyslipidemia, hypertension, macular degeneration, obesity, peripheral neuropathy, gastroesophageal reflux disease, left foot toe amputation. ALLERGIES: METFORMIN. SOCIAL HISTORY: The patient smoked. He does not drink alcohol. FAMILY HISTORY: Negative for heart disease and positive for hypertension. REVIEW OF SYSTEMS: Otherwise negative. PHYSICAL EXAMINATION: VITAL SIGNS: Blood pressure 144/91, pulse 64 and regular. HEENT: Negative. 2+ upstrokes. No bruits. LUNGS: Clear. HEART: Regular with no murmur, gallop, or rub. ABDOMEN: Soft. No bruits. EXTREMITIES: Without edema, 2+ distal pulses. NEUROLOGIC: Grossly nonfocal. EKG was reviewed and showed a normal sinus rhythm, normal axis and interval, LVH, nonspecific T-wave changes. LABORATORY DATA: Hemoglobin 12.4, potassium 4.4, creatinine 2.2 and 2.0, LDL 87, HDL 47. Nuclear marker perfusion study showed a small inferior defect with moderate reversibility and ejection fraction of 45%. DIAGNOSES: 1. Unspecified angina. 2. Mildly abnormal nuclear myocardial perfusion study. 3. Diabetes mellitus. 4. Dyslipidemia. 5. Hypertension. 6. Chronic kidney disease. DISPOSITION: Mr. Coffey was found to have a small inferior perfusion defect. His nuclear myocardial perfusion study was not a high risk study. He has chronic kidney disease and significant risk of nephropathy. At this time, I recommend to continue to titrate medical therapy including beta tanja, calcium channel tanja, high dose atorvastatin, baby aspirin and clopidogrel. We will discontinue nitroglycerin since the patient developed significant headache. I will follow the patient for cardiology during this hospitalization. I will also see him back for followup in our office after discharge. MD LOWELL Churchill , 10:14 AM , 10:51 AM JYOTI
--- NOTE | 2017-11-28 11:29 | P.PNIM ---
Subjective Interval history: 52-year-old male with known history of hypertension, hyperlipidemia, diabetes, gastroesophageal reflux, chronic kidney disease who presented to the hospital because of chest discomfort. Patient states that he has been experiencing intermittent chest discomfort for at least a year. He does have increased risk factors and he has undergone previous cardiac workup. Patient did have a stress test done in 2014 which was unremarkable. Patient underwent cardiac catheterization in 2010 which was unremarkable. Patient has not had any other workup since then. He has not notified his primary doctor of his intermittent chest discomfort. Patient indicates that he experiences pain at any time. It is not specific to any day, week, month. Is not worsened or antagonized by exertion. The pain is located over on the left side of his chest and radiates into his left arm, he describes it as 8/10 on a pain scale. He states he does get intermittent nausea and diaphoresis. He did have some vomiting this morning. He denies any shortness of breath, dyspnea, lightheadedness, dizziness. Because of patient's increased risk factors is recommended by the ER physician that the patient be observed in the chest pain center for further evaluation and management 7-8 Patient seen and examined today for follow-up on chest pain. Patient had a headache last night and it was noticed that his blood pressure was 205/95. Blood pressure much improved this morning. Denies any recurrent chest pain. Patient remains afebrile 7-9 PATIENT HAS BEEN SEEN BY DR AGUILAR HIS MEDICATIONS HAVE BEEN ADJUSTED DW RN AND PT MONITOR TODAY IF STABLE THEN DC TO HOME TOMORROW AM LABS Physical Exam Vital signs: Vital Signs 11/27/17 11:58 11/27/17 12:00 11/27/17 16:00 Temperature 96.7 F L 96.7 F L 96.0 F L Pulse Rate 60 60 60 Respiratory Rate 18 18 18 Blood Pressure 154/81 H 154/81 H 159/87 H Pulse Oximetry 100 100 100 11/27/17 20:00 11/28/17 00:00 11/28/17 04:00 Temperature 100 F H Pulse Rate 59 L 61 64 Respiratory Rate 16 16 18 Blood Pressure 147/88 H 144/91 H Pulse Oximetry 100 99 11/28/17 08:00 Temperature 98.3 F Pulse Rate 61 Respiratory Rate 18 Blood Pressure 164/82 H Pulse Oximetry 98 Intake & Output 11/27/17 11/28/17 11/28/17 18:59 06:59 18:59 Intake Total 720 / 720 1480 / 1480 Output Total 300 / 300 Balance 720 / 720 1180 / 1180 Weight 127.8 kg Intake: IV 1000 / 1000 NS Inj 1,000 ML @ 100 mls/hr IV 1000 / 1000 .CONT .Q10H MOE Rx#:[id number] Oral 720 / 720 480 / 480 Output: Urine 300 / 300 Other: # Voids 4 Date of Last Bowel Movement 11/27/17 Narrative: GENERAL: Well-developed, well-nourished, in no acute distress. alert and orientated HEENT: Head is normocephalic without any lesions or masses noted. Facial features are symmetric. Eyes: Extraocular muscles are intact. Conjunctivae were clear. NECK: Supple without any masses. Trachea midline no deviation. No JVD, CARDIAC: Regular rhythm, regular rate. S1/S2 are heard. No murmurs gallops or rubs. LUNGS: Clear to auscultation bilaterally. No wheeze, rhonchi or rales. No use of accessory muscles on inspiration or expiration. ABDOMEN: Soft, nontender. Nondistended. Bowel sounds heard in all 4 quadrants. No organomegaly or masses. Negative rebound, negative guarding obese EXTREMITIES: No edema, pulses are equal bilaterally. No cyanosis or clubbing NEUROLOGY: Mood and affect appear appropriate. Cranial nerves II through XII grossly intact. Moving all extremities, speech clear Awake alert and oriented 3 talkative and cooperative Insight and judgment is good Mood and behaviors are appropriate Results - Labs CBC & Chem 7: 11/27/17 06:30 11/27/17 06:30 Laboratory Results - last 24 hr 11/27/17 11/27/17 11/28/17 17:06 21:08 06:53 POC Glucose 258 H 228 H Triglycerides 128 Cholesterol 159 LDL Cholesterol, Calc 87 HDL Cholesterol 46.7 Cholesterol/HDL Ratio 3.40 11/28/17 07:36 POC Glucose 247 H Triglycerides Cholesterol LDL Cholesterol, Calc HDL Cholesterol Cholesterol/HDL Ratio - Imaging Impressions Myocardial Perfusion Scan Nuc Med 11/27/17 06:00 CONCLUSION: 1. Small area of mild reversibility within the inferior wall. 2. Ejection fraction 45%. Assessment and Plan - Assessment (1) Atypical chest pain Code(s): R07.89 - Other chest pain Status: Acute Plan: -Patient does have increased risk factors to include age, male, obesity with BMI 39.3, hypertension, hypovolemia, diabetes, family history of heart disease -We will continue ruled patient out with serial cardiac enzymes -Serial EKGs show sinus rhythm with first-degree AV block which does not have any changes from 10/13/17 -Myocardial perfusion study was performed and indicated small area of mild reversibility within the inferior wall ejection fraction 45%, intermediate risk -Patient continue on aspirin, beta-tanja, Norvasc, statin, add Nitropaste -Consult bobtailer on-call for further recommendations -Discussed with bobtailer who recommended patient be transferred to the main hospital for cardiac catheterization -Continue monitor telemetry -Patient's hypertension, hyperlipidemia will continue his home medications: To include metoprolol, Norvasc, atorvastatin Medications have been adjusted by Dr. Aguilar (2) Diabetes Code(s): E11.9 - Type 2 diabetes mellitus without complications Status: Chronic Plan: -Diabetic diet -Accu-Cheks with sliding scale insulin (3) Chronic kidney disease, stage 3 Code(s): N18.3 - Chronic kidney disease, stage 3 (moderate) Status: Chronic Plan: -Renal functions continue to improve -Continue monitor renal function -Avoid nephrotoxins - Plan Monitor labs tomorrow Monitor blood pressure today If stable hopefully discharge to home tomorrow Discussed with RN and patient Cardiology's note has been reviewed Code Status: Full code Discussed Condition With: RN and patient Discharge Planning: Hopefully in the next 24-48 hours A.m. labs
[2017-11-28] MEDS: Insulin Detemir Inj 1,000 UNIT/10 ML Vial SQ SCH ×2 (12:16→20:54)
[2017-11-29] MEDS: Insulin NovoLOG Aspart Correctional Sugar Inj SQ SCH ×2 (08:44→14:36)
[2017-11-29] MEDS: Metoprolol Tartrate 25 MG Tablet PO SCH (08:53)
[2017-11-29] MEDS: Insulin Detemir Inj 1,000 UNIT/10 ML Vial SQ SCH (08:54)
[2017-11-29] MEDS ORDERED: amLODIPine 10 MG Tablet PO SCH (09:00)
--- NOTE | 2017-11-29 12:55 | P.PNIM ---
Subjective Interval history: 52-year-old male with known history of hypertension, hyperlipidemia, diabetes, gastroesophageal reflux, chronic kidney disease who presented to the hospital because of chest discomfort. Patient states that he has been experiencing intermittent chest discomfort for at least a year. He does have increased risk factors and he has undergone previous cardiac workup. Patient did have a stress test done in 2014 which was unremarkable. Patient underwent cardiac catheterization in 2010 which was unremarkable. Patient has not had any other workup since then. He has not notified his primary doctor of his intermittent chest discomfort. Patient indicates that he experiences pain at any time. It is not specific to any day, week, month. Is not worsened or antagonized by exertion. The pain is located over on the left side of his chest and radiates into his left arm, he describes it as 8/10 on a pain scale. He states he does get intermittent nausea and diaphoresis. He did have some vomiting this morning. He denies any shortness of breath, dyspnea, lightheadedness, dizziness. Because of patient's increased risk factors is recommended by the ER physician that the patient be observed in the chest pain center for further evaluation and management 7-8 Patient seen and examined today for follow-up on chest pain. Patient had a headache last night and it was noticed that his blood pressure was 205/95. Blood pressure much improved this morning. Denies any recurrent chest pain. Patient remains afebrile 7-9 PATIENT HAS BEEN SEEN BY DR AGUILAR HIS MEDICATIONS HAVE BEEN ADJUSTED DW RN AND PT MONITOR TODAY IF STABLE THEN DC TO HOME TOMORROW AM LABS 7-10 SEEN AND CLEARED BY CARDIOLOGY DC TO HOME TODAY FOLLOW UP DR AGUILAR FOLLOW UP PCP DC TO HOME TODAY SEE MED REC Physical Exam Vital signs: Vital Signs 11/28/17 16:00 11/28/17 20:00 11/29/17 00:00 Temperature 98.4 F 98.8 F 98.2 F Pulse Rate 55 L 54 L 62 Respiratory Rate 18 18 16 Blood Pressure 144/98 H 153/82 H 156/88 H Pulse Oximetry 100 100 100 11/29/17 04:00 11/29/17 05:21 11/29/17 08:00 Temperature 98.5 F 97.8 F Pulse Rate 54 L 56 L 75 Respiratory Rate 18 18 18 Blood Pressure 163/96 H 138/87 136/88 Pulse Oximetry 100 100 99 11/29/17 12:00 Temperature 97.8 F Pulse Rate 61 Respiratory Rate 18 Blood Pressure 152/68 H Pulse Oximetry 100 Intake & Output 11/28/17 11/29/17 11/29/17 18:59 06:59 18:59 Intake Total 720 / 720 720 / 720 Output Total 650 / 650 Balance 720 / 720 70 / 70 Weight 116.7 kg Intake: Oral 720 / 720 720 / 720 Output: Urine 650 / 650 Other: # Voids 2 # Incontinent Voids 4 Date of Last Bowel Movement 11/28/17 # Bowel Movements 1 Narrative: GENERAL: Well-developed, well-nourished, in no acute distress. alert and orientated HEENT: Head is normocephalic without any lesions or masses noted. Facial features are symmetric. Eyes: Extraocular muscles are intact. Conjunctivae were clear. NECK: Supple without any masses. Trachea midline no deviation. No JVD, CARDIAC: Regular rhythm, regular rate. S1/S2 are heard. No murmurs gallops or rubs. LUNGS: Clear to auscultation bilaterally. No wheeze, rhonchi or rales. No use of accessory muscles on inspiration or expiration. ABDOMEN: Soft, nontender. Nondistended. Bowel sounds heard in all 4 quadrants. No organomegaly or masses. Negative rebound, negative guarding obese EXTREMITIES: No edema, pulses are equal bilaterally. No cyanosis or clubbing NEUROLOGY: Mood and affect appear appropriate. Cranial nerves II through XII grossly intact. Moving all extremities, speech clear Awake alert and oriented 3 talkative and cooperative Insight and judgment is good Mood and behaviors are appropriate Results - Labs CBC & Chem 7: 11/27/17 06:30 11/27/17 06:30 Laboratory Results - last 24 hr 11/28/17 11/29/17 11/29/17 20:16 08:40 12:19 POC Glucose 248 H 63 L 308 H - Imaging ITS Impressions Chest X-Ray 11/26/17 10:59 CONCLUSION: No acute cardiopulmonary disease Myocardial Perfusion Scan Nuc Med 11/27/17 06:00 CONCLUSION: 1. Small area of mild reversibility within the inferior wall. 2. Ejection fraction 45%. - Procedures STRESS TEST Assessment and Plan - Assessment (1) Atypical chest pain Code(s): R07.89 - Other chest pain Status: Acute Plan: -Patient does have increased risk factors to include age, male, obesity with BMI 39.3, hypertension, hypovolemia, diabetes, family history of heart disease -We will continue ruled patient out with serial cardiac enzymes -Serial EKGs show sinus rhythm with first-degree AV block which does not have any changes from 10/13/17 -Myocardial perfusion study was performed and indicated small area of mild reversibility within the inferior wall ejection fraction 45%, intermediate risk -Patient continue on aspirin, beta-tanja, Norvasc, statin, add Nitropaste -Consult geophysics scientist on-call for further recommendations -Discussed with geophysics scientist who recommended patient be transferred to the main hospital for cardiac catheterization -Continue monitor telemetry -Patient's hypertension, hyperlipidemia will continue his home medications: To include metoprolol, Norvasc, atorvastatin Medications have been adjusted by Dr. Aguilar DC TO HOME (2) Diabetes Code(s): E11.9 - Type 2 diabetes mellitus without complications Status: Chronic Plan: -Diabetic diet -Accu-Cheks with sliding scale insulin (3) Chronic kidney disease, stage 3 Code(s): N18.3 - Chronic kidney disease, stage 3 (moderate) Status: Chronic Plan: -Renal functions continue to improve -Continue monitor renal function -Avoid nephrotoxins - Plan Monitor labs tomorrow Monitor blood pressure today DC TO HOME TODAY Discussed with RN and patient Cardiology's note has been reviewed Code Status: FULL CODE Discussed Condition With: RN AND PT Discharge Planning: DC TO HOME TODAY FOLLOW UP PCP AND CORRINA
--- NOTE | 2017-11-29 13:04 | P.DS ---
Date of admission: 11/26/17 12:42 Primary care physician: TIESHA Roche Attending physician on discharge: Ankit Sims Anticipated date of discharge: 11/29/17 Brief History from admission: 52-year-old male with known history of hypertension, hyperlipidemia, diabetes, gastroesophageal reflux, chronic kidney disease who presented to the hospital because of chest discomfort. Patient states that he has been experiencing intermittent chest discomfort for at least a year. He does have increased risk factors and he has undergone previous cardiac workup. Patient did have a stress test done in 2014 which was unremarkable. Patient underwent cardiac catheterization in 2010 which was unremarkable. Patient has not had any other workup since then. He has not notified his primary doctor of his intermittent chest discomfort. Patient indicates that he experiences pain at any time. It is not specific to any day, week, month. Is not worsened or antagonized by exertion. The pain is located over on the left side of his chest and radiates into his left arm, he describes it as 8/10 on a pain scale. He states he does get intermittent nausea and diaphoresis. He did have some vomiting this morning. He denies any shortness of breath, dyspnea, lightheadedness, dizziness. Because of patient's increased risk factors is recommended by the ER physician that the patient be observed in the chest pain center for further evaluation and management DS: Diagnosis - Discharge Diagnosis (1) Atypical chest pain Status: Acute (2) Diabetes Status: Chronic (3) Chronic kidney disease, stage 3 Status: Chronic DS: Medications - Discharge Medications Prescriptions: amlodipine [Norvasc] 10 mg PO DAILY #30 tab aspirin 81 mg PO DAILY #30 tab atorvastatin 80 mg PO HS #30 tab clopidogrel [Plavix] 75 mg PO DAILY #30 tab insulin detemir U-100 [Levemir U-100 Insulin] 36 unit SUB-Q BID #7 vial insulin lispro [Humalog U-100 Insulin] 12 unit SUB-Q TID #7 vial metoprolol tartrate 25 mg PO DAILY #30 tab nitroglycerin [Nitrostat] 0.4 mg SUBLINGUAL Q5M PRN #100 tab PRN Reason: Chest Pain DS: Summary Hospital Course: 52-year-old male with known history of hypertension, hyperlipidemia, diabetes, gastroesophageal reflux, chronic kidney disease who presented to the hospital because of chest discomfort. Patient states that he has been experiencing intermittent chest discomfort for at least a year. He does have increased risk factors and he has undergone previous cardiac workup. Patient did have a stress test done in 2014 which was unremarkable. Patient underwent cardiac catheterization in 2010 which was unremarkable. Patient has not had any other workup since then. He has not notified his primary doctor of his intermittent chest discomfort. Patient indicates that he experiences pain at any time. It is not specific to any day, week, month. Is not worsened or antagonized by exertion. The pain is located over on the left side of his chest and radiates into his left arm, he describes it as 8/10 on a pain scale. He states he does get intermittent nausea and diaphoresis. He did have some vomiting this morning. He denies any shortness of breath, dyspnea, lightheadedness, dizziness. Because of patient's increased risk factors is recommended by the ER physician that the patient be observed in the chest pain center for further evaluation and management 7-8 Patient seen and examined today for follow-up on chest pain. Patient had a headache last night and it was noticed that his blood pressure was 205/95. Blood pressure much improved this morning. Denies any recurrent chest pain. Patient remains afebrile 7-9 PATIENT HAS BEEN SEEN BY DR HOUSER HIS MEDICATIONS HAVE BEEN ADJUSTED DW RN AND PT MONITOR TODAY IF STABLE THEN DC TO HOME TOMORROW AM LABS 7-10 SEEN AND CLEARED BY CARDIOLOGY DC TO HOME TODAY FOLLOW UP DR HOUSER FOLLOW UP PCP DC TO HOME TODAY SEE MED REC - Time Spent with Patient Total time spent providing and/or coordinating discharge services: Greater than 30 minutes - Quality: VTE Deep Vein Thrombosis/Pulmonary Embolism Present on Admission: No Exam Vital signs: Vital Signs 11/28/17 16:00 11/28/17 20:00 11/29/17 00:00 Temperature 98.4 F 98.8 F 98.2 F Pulse Rate 55 L 54 L 62 Respiratory Rate 18 18 16 Blood Pressure 144/98 H 153/82 H 156/88 H Pulse Oximetry 100 100 100 11/29/17 04:00 11/29/17 05:21 11/29/17 08:00 Temperature 98.5 F 97.8 F Pulse Rate 54 L 56 L 75 Respiratory Rate 18 18 18 Blood Pressure 163/96 H 138/87 136/88 Pulse Oximetry 100 100 99 11/29/17 12:00 Temperature 97.8 F Pulse Rate 61 Respiratory Rate 18 Blood Pressure 152/68 H Pulse Oximetry 100 Intake & Output 11/28/17 11/29/17 11/29/17 18:59 06:59 18:59 Intake Total 720 / 720 720 / 720 Output Total 650 / 650 Balance 720 / 720 70 / 70 Weight 116.7 kg Intake: Oral 720 / 720 720 / 720 Output: Urine 650 / 650 Other: # Voids 2 # Incontinent Voids 4 Date of Last Bowel Movement 11/28/17 # Bowel Movements 1 Narrative: GENERAL: Well-developed, well-nourished, in no acute distress. alert and orientated HEENT: Head is normocephalic without any lesions or masses noted. Facial features are symmetric. Eyes: Extraocular muscles are intact. Conjunctivae were clear. NECK: Supple without any masses. Trachea midline no deviation. No JVD, CARDIAC: Regular rhythm, regular rate. S1/S2 are heard. No murmurs gallops or rubs. LUNGS: Clear to auscultation bilaterally. No wheeze, rhonchi or rales. No use of accessory muscles on inspiration or expiration. ABDOMEN: Soft, nontender. Nondistended. Bowel sounds heard in all 4 quadrants. No organomegaly or masses. Negative rebound, negative guarding obese EXTREMITIES: No edema, pulses are equal bilaterally. No cyanosis or clubbing NEUROLOGY: Mood and affect appear appropriate. Cranial nerves II through XII grossly intact. Moving all extremities, speech clear Awake alert and oriented 3 talkative and cooperative Insight and judgment is good Mood and behaviors are appropriate Results Procedures completed during hospitalization: STRESS TEST Completed studies during hospitalization: Laboratory Results CBC w Diff Slide review pending 11/27/17 06:30 WBC 6.1 th/mm3 (4.0-11.0) 11/27/17 06:30 RBC 5.86 mil/mm3 (4.50-5.90) 11/27/17 06:30 Hgb 12.4 gm/dL (13.0-17.0) L 11/27/17 06:30 Hct 40.4 % (39.0-51.0) 11/27/17 06:30 MCV 68.9 fL (80.0-100.0) L 11/27/17 06:30 MCH 21.1 pg (27.0-34.0) L 11/27/17 06:30 MCHC 30.7 % (32.0-36.0) L 11/27/17 06:30 RDW 14.7 % (11.6-17.2) 11/27/17 06:30 Plt Count 200 th/mm3 (150-450) 11/27/17 06:30 MPV 10.0 fL (7.0-11.0) 11/27/17 06:30 Neut % (Auto) 69.1 % (16.0-70.0) 11/27/17 06:30 Lymph % (Auto) 22.2 % (9.0-44.0) 11/27/17 06:30 Gray % (Auto) 6.4 % (0.0-8.0) 11/27/17 06:30 Eos % (Auto) 1.7 % (0.0-4.0) 11/27/17 06:30 Baso % (Auto) 0.6 % (0.0-2.0) 11/27/17 06:30 Neut # (Auto) 4.2 th/mm3 (1.8-7.7) 11/27/17 06:30 Lymph # (Auto) 1.4 th/mm3 (1.0-4.8) 11/27/17 06:30 Gray # (Auto) 0.4 th/mm3 (0.0-0.9) 11/27/17 06:30 Eos # (Auto) 0.1 th/mm3 (0.0-0.4) 11/27/17 06:30 Baso # (Auto) 0.0 th/mm3 (0.0-0.2) 11/27/17 06:30 WBC Differential . 11/27/17 06:30 Diff Scan Auto diff confirmed 11/27/17 06:30 Differential Comment . 11/27/17 06:30 Platelet Estimate Normal (Normal) 11/27/17 06:30 Platelet Morphology Normal (Normal) 11/27/17 06:30 PT 10.9 sec (9.8-11.6) 11/26/17 11:23 INR 1.1 Ratio 11/26/17 11:23 APTT 30.3 sec (24.3-30.1) H 11/26/17 11:23 Sodium 140 meq/L (136-145) 11/27/17 06:30 Potassium 4.4 meq/L (3.5-5.1) 11/27/17 06:30 Chloride 106 meq/L (98-107) 11/27/17 06:30 Carbon Dioxide 27.7 meq/L (21.0-32.0) 11/27/17 06:30 Anion Gap 6 meq/L (5-15) 11/27/17 06:30 BUN 24 mg/dL (7-18) H 11/27/17 06:30 Creatinine 2.00 mg/dL (0.60-1.30) H 11/27/17 06:30 Estimated GFR 43 mL/min (>89) L 11/27/17 06:30 POC Glucose 308 mg/dl (68-110) H 11/29/17 12:19 Random Glucose 273 mg/dL (74-106) H 11/27/17 06:30 Calcium 8.8 mg/dL (8.5-10.1) 11/27/17 06:30 Magnesium 2.0 mg/dL (1.5-2.5) 11/26/17 11:23 Total Creatine Kinase 279 U/L (39-308) 11/26/17 17:45 CK-MB (CK-2) 3.5 ng/mL (0.5-3.6) 11/26/17 11:23 CK-MB (CK-2) % 1.1 % (0.0-4.0) 11/26/17 11:23 Troponin I 0.03 ng/mL (0.02-0.05) 11/26/17 17:45 Triglycerides 128 mg/dL (42-150) 11/28/17 06:53 Cholesterol 159 mg/dL (120-200) 11/28/17 06:53 LDL Cholesterol, Calc 87 mg/dL (0-99) 11/28/17 06:53 HDL Cholesterol 46.7 mg/dL (40.0-60.0) 11/28/17 06:53 Cholesterol/HDL Ratio 3.40 Ratio 11/28/17 06:53 Impressions Chest X-Ray 11/26/17 10:59 CONCLUSION: No acute cardiopulmonary disease Myocardial Perfusion Scan Nuc Med 11/27/17 06:00 CONCLUSION: 1. Small area of mild reversibility within the inferior wall. 2. Ejection fraction 45%. Labs on day of discharge: Labs from last 24 hours 11/29/17 11/29/17 11/28/17 12:19 08:40 20:16 POC Glucose 308 H 63 L 248 H - Impressions ITS Impressions Chest X-Ray 11/26/17 10:59 CONCLUSION: No acute cardiopulmonary disease Myocardial Perfusion Scan Nuc Med 11/27/17 06:00 CONCLUSION: 1. Small area of mild reversibility within the inferior wall. 2. Ejection fraction 45%. Discharge Plan - Discharge Disposition Patient Disposition: 01 Discharge Home - Discharge Condition Condition: Stable - Discharge Details Anticipated Discharge Date: 11/29/17 Discharge Comment: DC HOME - Physicians Team Primary Care Provider: Hafsa Jane Attending Provider: Ankit Sims Other Providers: Toby Houser MD
[2017-11-29 13:13] LABS: Baso % (Auto) 0.3 % (0.0-2.0); Eos # (Auto) 0.1 th/mm3 (0.0-0.4); Eos % (Auto) 1.7 % (0.0-4.0); Hematocrit 40.6 % (39.0-51.0); Hemoglobin 12.5 gm/dL (13.0-17.0); Lymph # (Auto) 1.1 th/mm3 (1.0-4.8); Lymph % (Auto) 19.2 % (9.0-44.0); Mean Corpuscular Hemoglobin 21.3 pg (27.0-34.0); Mean Corpuscular Volume 69.5 fL (80.0-100.0); Mean Platelet Volume 8.2 fL (7.0-11.0); Mono # (Auto) 0.4 th/mm3 (0.0-0.9); Mono % (Auto) 5.9 % (0.0-8.0); Neut # (Auto) 4.4 th/mm3 (1.8-7.7); Neut % (Auto) 72.9 % (16.0-70.0); Platelet Count 200 th/mm3 (150-450); Red Blood Count 5.85 mil/mm3 (4.50-5.90); Red Cell Distribution Width 15.7 % (11.6-17.2)
[2017-11-29 13:14] LABS: Mean Corpuscular HGB Conc 30.7 % (32.0-36.0)
[2017-11-29 13:39] LABS: Alanine Aminotransferase 18 U/L (12-78); Albumin 3.1 g/dL (3.4-5.0); Anion Gap 8 meq/L (5-15); Aspartate Aminotransferase 10 U/L (15-37); Blood Urea Nitrogen 27 mg/dL (7-18); Calcium 8.4 mg/dL (8.5-10.1); Carbon Dioxide 24.9 meq/L (21.0-32.0); Chloride 105 meq/L (98-107); Cholesterol 146 mg/dL (120-200); Glomerular Filtration Rate 39 mL/min (>89); Glucose,Random 280 mg/dL (74-106); Potassium 4.4 meq/L (3.5-5.1); Sodium 138 meq/L (136-145)
[2017-11-29 13:48] LABS: Alkaline Phosphatase 99 U/L (45-117); Chol/HDL Ratio 3.06 Ratio; HDL Cholesterol 47.6 mg/dL (40.0-60.0); LDL Cholesterol,Calculated 60 mg/dL (0-99); Phosphorus 3.3 mg/dL (2.5-4.9); Thyroid Stimulating Hormone 0.735 uIU/mL (0.358-3.740); Total Protein 7.2 g/dL (6.4-8.2); Triglycerides 190 mg/dL (42-150)
--- NOTE | 2017-11-29 14:35 | P.PNCA ---
<Venecia Guzman N - Last Filed: 11/29/17 14:18> Subjective Interval history: Pt c/o mild atypical angina that comes and goes. Pt denies typical angina, pressure, palpitations, dizziness or SOB. Pt states he is feeling good at this time Physical Exam Vital signs: Vital Signs 11/28/17 16:00 11/28/17 20:00 11/29/17 00:00 Temperature 98.4 F 98.8 F 98.2 F Pulse Rate 55 L 54 L 62 Respiratory Rate 18 18 16 Blood Pressure 144/98 H 153/82 H 156/88 H Pulse Oximetry 100 100 100 11/29/17 04:00 11/29/17 05:21 11/29/17 08:00 Temperature 98.5 F 97.8 F Pulse Rate 54 L 56 L 75 Respiratory Rate 18 18 18 Blood Pressure 163/96 H 138/87 136/88 Pulse Oximetry 100 100 99 11/29/17 12:00 Temperature 97.8 F Pulse Rate 61 Respiratory Rate 18 Blood Pressure 152/68 H Pulse Oximetry 100 Intake & Output 11/28/17 11/29/17 11/29/17 18:59 06:59 18:59 Intake Total 720 / 720 720 / 720 Output Total 650 / 650 Balance 720 / 720 70 / 70 Weight 116.7 kg Intake: Oral 720 / 720 720 / 720 Output: Urine 650 / 650 Other: # Voids 2 # Incontinent Voids 4 Date of Last Bowel Movement 11/28/17 # Bowel Movements 1 - Constitutional no acute distress - Routine HEENT Exam Head: Present: normocephalic Eye: Present: PERRL ENT: Present: mucous membranes moist - Routine Neck Exam Present: full ROM - Routine Respiratory Exam Present: CTA bilaterally - Routine Cardiovascular Exam Present: RRR - Routine Abdominal Exam Present: soft - Routine Extremities Exam Present: full ROM, pulses intact, normal capillary refill - Routine Skin Exam Present: intact - Routine Neurological Exam Present: oriented X3 - Detailed Neurological Exam: Coma Scale Eye Opening: Spontaneous Verbal Response: Oriented Motor Response: Obey commands [place] Coma Scale Total: 15 - Routine Psychiatric Exam Present: normal affect Assessment and Plan - Assessment (1) Abnormal nuclear stress test Code(s): R94.39 - Abnormal result of other cardiovascular function study Status: Acute (2) Atypical chest pain Code(s): R07.89 - Other chest pain Status: Acute (3) Hypertension Code(s): I10 - Essential (primary) hypertension Status: Acute (4) Dyslipidemia Code(s): E78.5 - Hyperlipidemia, unspecified Status: Acute (5) Diabetes Code(s): E11.9 - Type 2 diabetes mellitus without complications Status: Chronic (6) Chronic kidney disease, stage 3 Code(s): N18.3 - Chronic kidney disease, stage 3 (moderate) Status: Chronic - Plan Pt is was having atypical angina. Pt denies any typical angina, palpitations, pressure, dizziness or SOB. Going to treat the patient medically at this time due to CKD and the significant risk of nephropathy. Pt instructed to follow up with nephrology when discharged home. Increase activities, and discussed the importance of aggressive risk factor modifications. Continue current cardia treatment plan. Pt cleared to be discharged home from cardiac standpoint. Pt to F/U in office in a few weeks. The patient was seen and evaluated by Dr. Aguilar who participated in care, management and decision making <Toby Aguilar - Last Filed: 11/29/17 20:38> Physical Exam Vital signs: Vital Signs 11/29/17 00:00 11/29/17 04:00 11/29/17 05:21 Temperature 98.2 F 98.5 F Pulse Rate 62 54 L 56 L Respiratory Rate 16 18 18 Blood Pressure 156/88 H 163/96 H 138/87 Pulse Oximetry 100 100 100 11/29/17 08:00 11/29/17 12:00 Temperature 97.8 F 97.8 F Pulse Rate 75 61 Respiratory Rate 18 18 Blood Pressure 136/88 152/68 H Pulse Oximetry 99 100 Intake & Output 11/29/17 11/29/17 11/30/17 06:59 18:59 06:59 Intake Total 720 / 720 Output Total 650 / 650 Balance 70 / 70 Weight 257 lb 4.471 oz Intake: Oral 720 / 720 Output: Urine 650 / 650 Other: # Voids 2 Assessment and Plan - Assessment (1) Abnormal nuclear stress test Code(s): R94.39 - Abnormal result of other cardiovascular function study Status: Acute (2) Atypical chest pain Code(s): R07.89 - Other chest pain Status: Acute (3) Hypertension Code(s): I10 - Essential (primary) hypertension Status: Acute (4) Dyslipidemia Code(s): E78.5 - Hyperlipidemia, unspecified Status: Acute (5) Diabetes Code(s): E11.9 - Type 2 diabetes mellitus without complications Status: Chronic (6) Chronic kidney disease, stage 3 Code(s): N18.3 - Chronic kidney disease, stage 3 (moderate) Status: Chronic - Attending Attestation Patient seen and examined. I reviewed and agree with the findings and plan presented. OK to discharge from cardiac standpoint. Will schedule f/u in our office after discharge.
[2017-11-29 16:23] LABS: Hemoglobin A1c 9.7 % (4.3-6.0)
== END 2017-11-29 16:03 | disposition home or self-care (01) ==
LOC: HCIS 10:18 → PHED 10:18 → PHEDA 10:18 → PH3 14:11 → HCIS 11-27 19:35
PROVIDERS: ADMIT Hospitalist; ATTEND Hospitalist

== ENCOUNTER 2018-02-21 08:52 | Observation (INO) ==
[2018-02-21] MEDS ORDERED: Ketorolac Inj 30 MG/ML (IVP) Vial IV.PUSH ONE (09:14)
[2018-02-21] MEDS ORDERED: Pantoprazole Inj 40 MG Vial IV.PUSH ONE (09:14)
[2018-02-21] MEDS ORDERED: Sod Chloride 0.9% Inj 1,000 ML IV.SIG SCH (09:15)
--- NOTE | 2018-02-21 09:39 | ED ---
HPI General Chief Complaint: Abdominal Pain Stated Complaint: stomach pain x this am Time Seen by Provider: 02/21/18 09:12 History of Present Illness HPI narrative: 50-year-old male with past medical history of hypertension, diabetes, gastroparesis presents to the emergency room complaining of 1 day history of nausea, vomiting, abdominal pain. Pain is crampy moderate to severe located in the epigastric area radiating to the back. Patient denies hematemesis or melena. Patient denies any fever, chills, cough, chest pain or shortness of breath. Patient reports having similar episodes like this every year at least once. Patient states last bowel movement was yesterday that was normal in color and consistency. Related Data Home Medications Medication Instructions Recorded Confirmed gabapentin 300 mg PO BID 02/21/18 02/21/18 Previous Rx's Medication Instructions Recorded amlodipine [Norvasc] 10 mg PO DAILY #30 tab 11/29/17 aspirin 81 mg PO DAILY #30 tab 11/29/17 atorvastatin 80 mg PO HS #30 tab 11/29/17 insulin detemir U-100 [Levemir 36 unit SUB-Q BID #7 vial 11/29/17 U-100 Insulin] insulin lispro [Humalog U-100 12 unit SUB-Q TID #7 vial 11/29/17 Insulin] metoprolol tartrate 25 mg PO DAILY #30 tab 11/29/17 nitroglycerin [Nitrostat] 0.4 mg SUBLINGUAL Q5M PRN #100 tab 11/29/17 Allergies Allergy/AdvReac Type Severity Reaction Status Date / Time metformin Allergy Severe nausea and Verified 02/21/18 09:06 vomiting TETININ Allergy Unknown Rash Uncoded 02/21/18 09:06 *MDRO Multi-Drug Resistant AdvReac Unknown none Uncoded 02/21/18 09:06 Organism Review of Systems Constitutional Denies fever(s) Eyes Denies change in vision ENT Denies headache(s) and Denies nasal congestion Cardiovascular Denies chest pain Respiratory Denies dyspnea Gastrointestinal Reports abdominal pain, Reports nausea and Reports vomiting Genitourinary Denies difficulty urinating Musculoskeletal Denies myalgias Integumentary/Breasts Denies rash Neurologic Denies headache(s) Psychiatric Denies depression Endocrine Denies polyuria Hematologic/Lymphatic Denies easy bruising [facility] Medical History Medical History Gastroparesis (Acute) Ulcer (Acute) Amputated toe of left foot (Acute) Blood cholesterol increased compared with prior measurement (Acute) Chronic back pain (Acute) Chronic kidney disease, stage 3 (Acute) Degenerative joint disease of knee (Acute) Diabetic acidosis, type II (Acute) Diabetic retinopathy (Acute) Gastric ulcer (Acute) Hiatal hernia (Acute) Hyperlipemia (Acute) Hypertension (Acute) Macular degeneration (Acute) Obesity (BMI 30-39.9) (Acute) Peripheral neuropathy (Acute) Reflux gastritis (Acute) Surgical History Surgical History H/O toe surgery (Acute) History of cardiac catheterization (Acute) History of esophagogastroduodenoscopy (Acute) History of removal of cyst (Acute) Family History Family History Mother Family history of hypertension Father Family history of hypertension Social History Social History Substance History: No History of Abuse Second Hand Smoke Exposure: No Smoking Status: Never smoker How Often Do You Have a Drink Containing Alcohol: Never Recent Travel in [facility] within the Last 8 Weeks: No Recent Out of Country Travel within the Last 8 Weeks: No Immunization History Tetanus Immunization: <5 Years Hx Influenza Vaccine This Season: Yes Exam Narrative Exam Narrative: GENERAL: Patient is alert and oriented -3 SKIN: Focused skin assessment warm/dry. HEAD: Atraumatic. Normocephalic. EYES: Pupils equal and round. No scleral icterus. No injection or drainage. ENT: No nasal bleeding or discharge. Mucous membranes pink and moist. NECK: Trachea midline. No JVD. CARDIOVASCULAR: Regular rate and rhythm. No murmur appreciated. RESPIRATORY: No accessory muscle use. Clear to auscultation. Breath sounds equal bilaterally. GASTROINTESTINAL: Abdomen soft , tender epigastric area,, nondistended. Hepatic and splenic margins not palpable. MUSCULOSKELETAL: No obvious deformities. No clubbing. No cyanosis. No edema. NEUROLOGICAL: Awake and alert. No obvious cranial nerve deficits. Motor grossly within normal limits. Normal speech. PSYCHIATRIC: Appropriate mood and affect; insight and judgment normal. Course Reevaluation(s) Reevaluation #1: Patient condition improved during the ER course with resolution of vomiting however the feeling of nausea and abdominal pain are persistent. I personally reexamined and counseled the patient about his/her diagnosis and results. Time: 11:47 Initial Documented Vital Signs Temperature 99.3 F 02/21/18 09:04 Pulse Rate 93 H 02/21/18 09:04 Respiratory Rate 16 02/21/18 09:04 Blood Pressure 182/100 H 02/21/18 09:04 Pulse Oximetry 100 02/21/18 09:04 Last Documented Vital Signs Temperature 99.3 F 02/21/18 09:04 Pulse Rate 77 02/21/18 10:39 Respiratory Rate 18 02/21/18 10:39 Blood Pressure 173/92 H 02/21/18 10:39 Pulse Oximetry 98 02/21/18 10:39 Medical Decision Making [facility] Narrative Medical Screen Exam Complete: Yes Emergency Medical Condition: Yes Lab Data Result diagrams: 02/21/18 09:55 02/21/18 09:55 Lab Results 02/21/18 02/21/18 Range/Units 09:55 09:55 CBC w Diff Slide review pending WBC 6.3 (4.0-11.0) th/mm3 RBC 5.73 (4.50-5.90) mil/mm3 Hgb 12.6 L (13.0-17.0) gm/dL Hct 39.7 (39.0-51.0) % MCV 69.4 L (80.0-100.0) fL MCH 22.0 L (27.0-34.0) pg MCHC 31.8 L (32.0-36.0) % RDW 16.3 (11.6-17.2) % Plt Count 225 (150-450) th/mm3 MPV 8.8 (7.0-11.0) fL Neut % (Auto) 74.1 H (16.0-70.0) % Lymph % (Auto) 18.0 (9.0-44.0) % [place] % (Auto) 6.1 (0.0-8.0) % Eos % (Auto) 1.6 (0.0-4.0) % Baso % (Auto) 0.2 (0.0-2.0) % Neut # (Auto) 4.7 (1.8-7.7) th/mm3 Lymph # (Auto) 1.1 (1.0-4.8) th/mm3 [place] # (Auto) 0.4 (0.0-0.9) th/mm3 Eos # (Auto) 0.1 (0.0-0.4) th/mm3 Baso # (Auto) 0.0 (0.0-0.2) th/mm3 WBC Differential . Diff Scan Auto diff confirmed Differential Comment . Target Cells 1+ H (None) Ovalocytes 1+ H (None) Keratocytes Occ H (None) Sodium 140 (136-145) meq/L Potassium 4.7 (3.5-5.1) meq/L Chloride 106 (98-107) meq/L Carbon Dioxide 23.7 (21.0-32.0) meq/L Anion Gap 10 (5-15) meq/L BUN 31 H (7-18) mg/dL Creatinine 2.50 H (0.60-1.30) mg/dL Estimated GFR 33 L (>89) mL/min Random Glucose 199 H (74-106) mg/dL Calcium 9.1 (8.5-10.1) mg/dL Total Bilirubin 0.4 (0.2-1.0) mg/dL AST 12 L (15-37) U/L ALT 20 (12-78) U/L Alkaline Phosphatase 118 H (45-117) U/L Total Protein 7.8 (6.4-8.2) g/dL Albumin 3.4 (3.4-5.0) g/dL Lipase 49 L (73-393) U/L Imaging Data Radiologist's impression: Abdomen/Pelvis CT 02/21/18 10:25 CONCLUSION: 1. Unremarkable bowel gas pattern. 2. Unremarkable gallbladder. 3. No visualized etiology to explain the patient's pain. Discharge Plan Discharge Disposition Patient Disposition: 30 Still Patient Discharge Condition Condition: Fair Discharge Details Discharge Comment: Patient is admitted for observation and the case was discussed with Dr. Webb Diagnosis: Abdominal pain, Vomiting, Accelerated hypertension Physicians Team ED Provider: Shaheed Marquez Primary Care Provider: Primary Care Elizabeth Frias Rxs /Orders / Referrals /Forms Prescriptions: No Action atorvastatin 80 mg Tablet 80 mg PO HS Qty: 30 RF: 0 aspirin 81 mg Tablet,Delayed Release (Dr/Ec) 81 mg PO DAILY Qty: 30 RF: 0 amlodipine [Norvasc] 10 mg Tablet 10 mg PO DAILY Qty: 30 RF: 0 nitroglycerin [Nitrostat] 0.4 mg Tablet, Sublingual 0.4 mg Sublingual Q5M PRN (Reason: Chest Pain) Qty: 100 RF: 0 insulin lispro [Humalog U-100 Insulin] 100 unit/mL Solution 12 unit SUB-Q TID Qty: 7 RF: 0 metoprolol tartrate 25 mg Tablet 25 mg PO DAILY Qty: 30 RF: 0 insulin detemir U-100 [Levemir U-100 Insulin] 100 unit/mL Solution 36 unit SUB-Q BID Qty: 7 RF: 0 gabapentin 300 mg Capsule 300 mg PO BID RF: 0 Discharge Interventions Interventions: Vital Signs Last Done: 02/21/18 10:39 Status ED Status: With Doctor
[2018-02-21 10:03] LABS: Baso % (Auto) 0.2 % (0.0-2.0); Eos # (Auto) 0.1 th/mm3 (0.0-0.4); Eos % (Auto) 1.6 % (0.0-4.0); Hematocrit 39.7 % (39.0-51.0); Hemoglobin 12.6 gm/dL (13.0-17.0); Lymph # (Auto) 1.1 th/mm3 (1.0-4.8); Mean Corpuscular HGB Conc 31.8 % (32.0-36.0); Mean Corpuscular Volume 69.4 fL (80.0-100.0); Mean Platelet Volume 8.8 fL (7.0-11.0); Mono # (Auto) 0.4 th/mm3 (0.0-0.9); Mono % (Auto) 6.1 % (0.0-8.0); Neut # (Auto) 4.7 th/mm3 (1.8-7.7); Neut % (Auto) 74.1 % (16.0-70.0); Platelet Count 225 th/mm3 (150-450); Red Blood Count 5.73 mil/mm3 (4.50-5.90); Red Cell Distribution Width 16.3 % (11.6-17.2); White Blood Count 6.3 th/mm3 (4.0-11.0)
[2018-02-21 10:11] LABS: Chloride 106 meq/L (98-107); Potassium 4.7 meq/L (3.5-5.1); Sodium 140 meq/L (136-145)
[2018-02-21 10:15] LABS: Albumin 3.4 g/dL (3.4-5.0); Anion Gap 10 meq/L (5-15); Blood Urea Nitrogen 31 mg/dL (7-18); Calcium 9.1 mg/dL (8.5-10.1); Carbon Dioxide 23.7 meq/L (21.0-32.0); Glucose,Random 199 mg/dL (74-106); Lipase 49 U/L (73-393)
[2018-02-21 10:18] LABS: Alanine Aminotransferase 20 U/L (12-78); Aspartate Aminotransferase 12 U/L (15-37); Glomerular Filtration Rate 33 mL/min (>89)
[2018-02-21 10:20] LABS: Total Protein 7.8 g/dL (6.4-8.2)
[2018-02-21 10:21] LABS: Alkaline Phosphatase 118 U/L (45-117)
[2018-02-21] MEDS ORDERED: hydrALAZINE HCl Inj 20 MG/ML Vial IV.PUSH ONE (10:27)
[2018-02-21 10:36] LABS: Ovalocytes 1+; Target Cells 1+
[2018-02-21] MEDS ORDERED: Morphine Sulfate Inj 2 MG/ML Vial IV.PUSH ONE (10:36)
--- NOTE | 2018-02-21 11:02 | CT ---
EXAM DATE: 02/21/2018 10:29 AM EDT AGE/SEX: 52 years / Male INDICATIONS: Epigastric pain radiating to the back with nausea and vomiting. CLINICAL DATA: This is the patient's initial encounter. Patient reports that signs and symptoms have been present for 1 day and indicates a pain score of 10/10. MEDICAL/SURGICAL HISTORY: Renal disease. Hiatal hernia. Ulcers. Diabetes. Hypertension. . C ardiac catheterization. RADIATION DOSE: 25.03 CTDI (mGy) ; Patient body habitus COMPARISON: [facility], CT ABDOMEN & PELVIS W CONTRAST, 08/10/2017. . TECHNIQUE: Multiple contiguous axial images were obtained through the abdomen. Images were obtained using multiple row detector helical technique. Using automated exposure control and adjustment of the mA and/or kV according to patient size, radiation dose was kept as low as reasonably achievable to o btain optimal diagnostic quality images. DICOM format image data is available electronically for rev iew and comparison. FINDINGS: Lower Lungs: The visualized lower lungs are clear. Liver: The liver has a homogeneous density without space-occupying lesion. There is no dilation of th e biliary tree. The gallbladder is unremarkable in appearance. Spleen: Homogeneous density without enlargement. Pancreas: Unremarkable without mass or calcification. Kidneys: Normal in size and shape. No evidence of mass or hydronephrosis. Adrenal Glands: Unremarkable. Aorta: The aorta and proximal iliac vessels are grossly unremarkable without aneurysmal dilation. Bowel/Mesentery: No oral contrast was given limiting the sensitivity. The bowel loops are grossly unr emarkable. The cecum and sigmoid colon have a normal configuration. Abdominal Wall: Intact. Retroperitoneum: No evidence of adenopathy in the retrocrural, para-aortic, or deep pelvic regions. Bladder: Contours are smooth. Reproductive Organs: No abnormal masses or calcifications seen. Inguinal: The inguinal region is unremarkable without evidence of adenopathy. Bony Structures: Unremarkable. CONCLUSION: 1. Unremarkable bowel gas pattern. 2. Unremarkable gallbladder. 3. No visualized etiology to explain the patient's pain. Electronically signed by: Jimmy Preciado MD 02/21/2018 11:01 AM EDT
[2018-02-21] MEDS ORDERED: Morphine Inj 4 MG/ML Vial IV.PUSH PRN (12:13)
[2018-02-21] MEDS ORDERED: Dextrose 50% in Water 50 ML Vial IV.PUSH PRN (12:15)
--- NOTE | 2018-02-21 13:02 | P.HPIM ---
History of Present Illness Primary Care Physician: No Primary Care Physician History of Present Illness: Mr. Coffey is a 52-year-old male. He came into the hospital secondary to nausea vomiting and abdominal pain. He says he has had episodes like this before. No formal diagnosis of gastroparesis but he does have diabetes at baseline. Past history of recurrent episodes like this are suggestive of gastroparesis. Currently she cannot tolerate anything p.o. so testing for that is not possible immediately. No fevers reported. No other complaints. The symptoms have been ongoing for about 24 hours and he has no sick contacts. - Diagnosis (1) Hyperemesis (2) Abdominal pain (3) Vomiting (4) Accelerated hypertension Review of Systems Constitutional: No fevers, no chills no night sweats, no fatigue, no weakness Eyes: No eye pain, no blurry vision, no loss of vision ENT: No sore throat, no ear pain, no rhinorrhea Cardiovascular: No chest pain, no tachycardia, no palpitations, no shortness of breath, no syncope Respiratory: No wheezing, no cough, no shortness of breath Gastrointestinal: abdominal pain, no black tarry stools, no bright red blood per rectum, nausea/vomiting, no diarrhea Musculoskeletal: No joint pain, no muscle cramps, no stiffness Integumentary: No rash, no ulcers, no drainage Neurologic: No sensory loss, no loss of motor function, no dizziness Psychiatric: No behavioral changes, no hallucinations, no suicidal ideations [facility] - History History Provided By: Patient - Medical History Medical History: Medical History (Last Reviewed 02/21/18 @ 09:38 by Shaheed Marquez) Gastroparesis Ulcer Amputated toe of left foot Blood cholesterol increased compared with prior measurement Chronic back pain Chronic kidney disease, stage 3 Degenerative joint disease of knee Diabetic acidosis, type II Diabetic retinopathy Gastric ulcer Hiatal hernia Hyperlipemia Hypertension Macular degeneration Obesity (BMI 30-39.9) Peripheral neuropathy Reflux gastritis - Surgical History Surgical History: Surgical History (Last Reviewed 02/21/18 @ 09:38 by Shaheed Marquez) H/O toe surgery History of cardiac catheterization History of esophagogastroduodenoscopy History of removal of cyst - Family History Family History: Family History (Last Reviewed 02/21/18 @ 09:38 by Shaheed Marquez) Mother Family history of hypertension Father Family history of hypertension - Tobacco History Second Hand Smoke Exposure: No Smoking Status: Never smoker - Alcohol History How Often Do You Have a Drink Containing Alcohol: Never - Substance Use History Substance History: No History of Abuse - Travel History Recent Travel in the [place] Within the Last 8 Weeks: No Recent Travel Out of the Country Within the Last 8 Weeks: No - Immunization History Tetanus Immunization: <5 Years Hx Influenza Vaccine This Season: Yes Medications and Allergies Active Medications: Active Medications Al Hydroxide/Mg Hydroxide (Milk Of Magnesia Liq) 30 ml PO Q12H PRN PRN Reason: Mild Constipation Dextrose (D50w Vial) 50 ml IV.PUSH UNSCH PRN PRN Reason: PER HYPOGLYCEMIA PROTOCOL Enalaprilat (Vasotec Inj) 1.25 mg IV.PUSH Q6H PRN PRN Reason: SBP>160, DBP>90 Glucagon (Glucagon Inj) 1 mg OTHER PRN PRN PRN Reason: for Hypoglycemia Protocol Heparin Sodium (Porcine) (Heparin Inj) 5,000 units SQ Q12H MOE Sodium Chloride (Ns Inj) 1,000 mls @ 0 mls/hr IV.SIG BOLUS MOE Last Infusion: 02/21/18 11:29 Dose: Infused Sodium Chloride (Ns Inj) 1,000 mls @ 100 mls/hr IV.CONT .Q10H MOE Insulin Aspart (Novolog Insulin Correctional Sugar Inj) 0 unit SQ ACHS MOE; Protocol Metoclopramide HCl (Reglan Inj) 5 mg IV.PUSH Q8HR MOE; Protocol Morphine Sulfate (Morphine Inj) 2 mg IV.PUSH Q4H PRN PRN Reason: Pain 3 to 6 Morphine Sulfate (Morphine Inj) 4 mg IV.PUSH Q4H PRN PRN Reason: Pain 7 to 10 Ondansetron HCl (Zofran Inj) 4 mg IV.PUSH Q6H PRN PRN Reason: NAUSEA OR VOMITING Allergies Allergy/AdvReac Type Severity Reaction Status Date / Time metformin Allergy Severe nausea and Verified 02/21/18 09:06 vomiting TETININ Allergy Unknown Rash Uncoded 02/21/18 09:06 *MDRO Multi-Drug Resistant AdvReac Unknown none Uncoded 02/21/18 09:06 Organism Home Medications Medication Instructions Recorded Confirmed Type gabapentin 300 mg PO BID 02/21/18 02/21/18 History Exam Vital signs: Vital Signs 02/21/18 09:04 02/21/18 10:39 Temperature 99.3 F Pulse Rate 93 H 77 Respiratory Rate 16 18 Blood Pressure 182/100 H 173/92 H Pulse Oximetry 100 98 Intake & Output 02/20/18 02/21/18 02/21/18 18:59 06:59 18:59 Intake Total 1000 / 1000 Balance 1000 / 1000 Weight 115.2 kg Intake: IV 1000 / 1000 NS Inj 1,000 ML @ Wide Open IV. 1000 / 1000 SIG BOLUS MOE Rx#:[id number] Narrative: GENERAL: NAD, A&Ox3, vomiting present HEAD: Normocephalic. NECK: Supple, trachea midline. No lymphadenopathy. EYES: No scleral icterus. No injection or drainage. CARDIOVASCULAR: Regular rate and rhythm without murmurs, gallops, or rubs. RESPIRATORY: Breath sounds equal bilaterally. No accessory muscle use. GASTROINTESTINAL: Abdomen soft, non-tender, nondistended. MUSCULOSKELETAL: No cyanosis, or edema. SKIN: Warm and dry. NEURO: No focal neurological deficits. Results - Labs CBC & Chem 7: 02/21/18 09:55 02/21/18 09:55 Labs: Short CBC 02/21/18 Range/Units 09:55 WBC 6.3 (4.0-11.0) th/mm3 Hgb 12.6 L (13.0-17.0) gm/dL Hct 39.7 (39.0-51.0) % Plt Count 225 (150-450) th/mm3 BMP 02/21/18 09:55 Sodium 140 Potassium 4.7 Chloride 106 Carbon Dioxide 23.7 BUN 31 H Creatinine 2.50 H Calcium 9.1 Liver Function 02/21/18 Range/Units 09:55 Total Bilirubin 0.4 (0.2-1.0) mg/dL AST 12 L (15-37) U/L ALT 20 (12-78) U/L Alkaline Phosphatase 118 H (45-117) U/L Albumin 3.4 (3.4-5.0) g/dL - Imaging Impressions Abdomen/Pelvis CT 02/21/18 10:25 CONCLUSION: 1. Unremarkable bowel gas pattern. 2. Unremarkable gallbladder. 3. No visualized etiology to explain the patient's pain. Caprini VTE Risk Assessment Caprini VTE Risk Assessment: No/Low Risk (score <= 1) Caprini Risk Assessment Model: Point Value = 1 Point Value = 2 Point Value = 3 Point Value = 5 Age 41-60 Minor surgery BMI > 25 kg/m2 Swollen legs Varicose veins or History of unexplained or recurrent spontaneous Oral contraceptives or hormone replacement Sepsis (< 1 month) Serious lung disease, including pneumonia (< 1 month) Abnormal pulmonary function Acute myocardial infarction Congestive heart failure (< 1 month) History of inflammatory bowel disease Medical patient at bed rest Age 61-74 Arthroscopic surgery Major open surgery (> 45 min) Laparoscopic surgery (> 45 min) Malignancy Confined to bed (> 72 hours) Immobilizing plaster cast Central venous access Age >= 75 History of VTE Family history of VTE Factor V Leiden Prothrombin [id number] Lupus anticoagulant Anticardiolipin antibodies Elevated serum homocysteine Heparin-induced thrombocytopenia Other congenital or acquired thrombophilia Stroke (< 1 month) Elective arthroplasty Hip, pelvis, or leg fracture Acute spinal cord injury (< 1 month) Prophylaxis Regimen: Total Risk Factor Score Risk Level Prophylaxis Regimen 0-1 Low Early ambulation 2 Moderate Order ONE of the following: *Sequential Compression Device (SCD) *Heparin 5000 units SQ BID 3-4 Higher Order ONE of the following medications: *Heparin 5000 units SQ TID *Enoxaparin/Lovenox 40 mg SQ daily (WT < 150 kg, CrCl > 30 mL/min) *Enoxaparin/Lovenox 30 mg SQ daily (WT < 150 kg, CrCl > 10-29 mL/min) *Enoxaparin/Lovenox 30 mg SQ BID (WT < 150 kg, CrCl > 30 mL/min) AND/OR *Sequential Compression Device (SCD) 5 or more Highest Order ONE of the following medications: *Heparin 5000 units SQ TID (Preferred with Epidurals) *Enoxaparin/Lovenox 40 mg SQ daily (WT < 150 kg, CrCl > 30 mL/min) *Enoxaparin/Lovenox 30 mg SQ daily (WT < 150 kg, CrCl > 10-29 mL/min) *Enoxaparin/Lovenox 30 mg SQ BID (WT < 150 kg, CrCl > 30 mL/min) AND *Sequential Compression Device (SCD) Assessment and Plan - Assessment (1) Hyperemesis Code(s): R11.10 - Vomiting, unspecified Status: Acute (2) Abdominal pain Code(s): R10.9 - Unspecified abdominal pain Status: Acute (3) Vomiting Code(s): R11.10 - Vomiting, unspecified Status: Acute (4) Accelerated hypertension Code(s): I10 - Essential (primary) hypertension Status: Acute - Plan 52-year-old male admitted secondary to abdominal pain with hyperemesis and hypertensive urgency Hyperemesis Abdominal pain Possible gastroparesis IV hydration Clear liquids as tolerated Pain treatments as needed Zofran Scheduled Reglan Consider testing for gastroparesis once patient able to tolerate p.o. intake Diabetes mellitus type 2 Follow blood sugars Insulin sliding scale Diabetic diet once able to take p.o. Hypertensive urgency on HTN PRN IV enalapril Follow blood pressures Continue baseline treatments Hyperlipidemia Continue present treatment Follow as an outpatient Chronic kidney disease stage III Follow-up BUN and creatinine Diabetic retinopathy History of gastric ulcer Hiatal hernia Macular degeneration Obesity Peripheral neuropathy Gastroesophageal reflux disease Continue baseline treatments No exacerbation of these conditions DVT prophylaxis Heparin
[2018-02-21] MEDS: Sod Chloride 0.9% Inj 1,000 ML IV.CONT SCH ×2 (13:54→23:26)
[2018-02-21] MEDS: Morphine Inj 4 MG/ML Vial IV.PUSH PRN ×3 (14:14→22:41)
[2018-02-21] MEDS: Insulin NovoLOG Aspart Correctional Sugar Inj SQ SCH ×2 (18:15→21:45)
--- NOTE | 2018-02-21 20:49 | P.PN ---
Subjective Interval history: NOT SEENm Physical Exam Vital signs: Vital Signs 02/21/18 09:04 02/21/18 10:39 02/21/18 13:02 Temperature 99.3 F Pulse Rate 93 H 77 88 Respiratory Rate 16 18 18 Blood Pressure 182/100 H 173/92 H 182/100 H Pulse Oximetry 100 98 98 02/21/18 16:00 Temperature 97.8 F Pulse Rate 75 Respiratory Rate 18 Blood Pressure 157/86 H Pulse Oximetry 99 Intake & Output 02/21/18 02/21/18 02/22/18 06:59 18:59 06:59 Intake Total 1000 / 1000 Output Total 500 / 500 Balance 500 / 500 Weight 115.2 kg Intake: IV 1000 / 1000 NS Inj 1,000 ML @ Wide Open IV. 1000 / 1000 SIG BOLUS MOE Rx#:[id number] Output: Urine 500 / 500 Narrative: GENERAL: NAD, A&Ox3, vomiting present HEAD: Normocephalic. NECK: Supple, trachea midline. No lymphadenopathy. EYES: No scleral icterus. No injection or drainage. CARDIOVASCULAR: Regular rate and rhythm without murmurs, gallops, or rubs. RESPIRATORY: Breath sounds equal bilaterally. No accessory muscle use. GASTROINTESTINAL: Abdomen soft, non-tender, nondistended. MUSCULOSKELETAL: No cyanosis, or edema. SKIN: Warm and dry. NEURO: No focal neurological deficits. Results - Labs CBC & Chem 7: 02/21/18 09:55 02/21/18 09:55 Laboratory Results - last 24 hr 02/21/18 02/21/18 09:55 09:55 CBC w Diff Slide review pending WBC 6.3 RBC 5.73 Hgb 12.6 L Hct 39.7 MCV 69.4 L MCH 22.0 L MCHC 31.8 L RDW 16.3 Plt Count 225 MPV 8.8 Neut % (Auto) 74.1 H Lymph % (Auto) 18.0 Tripp % (Auto) 6.1 Eos % (Auto) 1.6 Baso % (Auto) 0.2 Neut # (Auto) 4.7 Lymph # (Auto) 1.1 Tripp # (Auto) 0.4 Eos # (Auto) 0.1 Baso # (Auto) 0.0 WBC Differential . Diff Scan Auto diff confirmed Differential Comment . Target Cells 1+ H Ovalocytes 1+ H Keratocytes Occ H Sodium 140 Potassium 4.7 Chloride 106 Carbon Dioxide 23.7 Anion Gap 10 BUN 31 H Creatinine 2.50 H Estimated GFR 33 L Random Glucose 199 H Calcium 9.1 Total Bilirubin 0.4 AST 12 L ALT 20 Alkaline Phosphatase 118 H Total Protein 7.8 Albumin 3.4 Lipase 49 L - Imaging Impressions Abdomen/Pelvis CT 02/21/18 10:25 CONCLUSION: 1. Unremarkable bowel gas pattern. 2. Unremarkable gallbladder. 3. No visualized etiology to explain the patient's pain. - Procedures none Assessment and Plan - Assessment (1) Hyperemesis Code(s): R11.10 - Vomiting, unspecified Status: Acute (2) Abdominal pain Code(s): R10.9 - Unspecified abdominal pain Status: Acute (3) Vomiting Code(s): R11.10 - Vomiting, unspecified Status: Acute (4) Accelerated hypertension Code(s): I10 - Essential (primary) hypertension Status: Acute - Plan 52-year-old male admitted secondary to abdominal pain with hyperemesis and hypertensive urgency Hyperemesis Abdominal pain Possible gastroparesis IV hydration Clear liquids as tolerated Pain treatments as needed Zofran Scheduled Reglan Consider testing for gastroparesis once patient able to tolerate p.o. intake Diabetes mellitus type 2 Follow blood sugars Insulin sliding scale Diabetic diet once able to take p.o. Hypertensive urgency on HTN PRN IV enalapril Follow blood pressures Continue baseline treatments Hyperlipidemia Continue present treatment Follow as an outpatient Chronic kidney disease stage III Follow-up BUN and creatinine Diabetic retinopathy History of gastric ulcer Hiatal hernia Macular degeneration Obesity Peripheral neuropathy Gastroesophageal reflux disease Continue baseline treatments No exacerbation of these conditions DVT prophylaxis Heparin
[2018-02-21] MEDS: Gabapentin 300 MG Capsule PO SCH (21:41)
[2018-02-21] MEDS: Heparin - SQ 10,000 UNITS/ML Vial SQ SCH (21:42)
[2018-02-21] MEDS: Insulin Detemir Inj 1,000 UNIT/10 ML Vial SQ SCH (21:45)
[2018-02-22 06:55] LABS: Baso % (Auto) 0.6 % (0.0-2.0); Eos # (Auto) 0.1 th/mm3 (0.0-0.4); Eos % (Auto) 2.8 % (0.0-4.0); Hematocrit 36.8 % (39.0-51.0); Hemoglobin 11.7 gm/dL (13.0-17.0); Lymph # (Auto) 1.3 th/mm3 (1.0-4.8); Lymph % (Auto) 25.9 % (9.0-44.0); Mean Corpuscular HGB Conc 31.7 % (32.0-36.0); Mean Corpuscular Hemoglobin 22.5 pg (27.0-34.0); Mean Corpuscular Volume 70.8 fL (80.0-100.0); Mean Platelet Volume 8.6 fL (7.0-11.0); Mono # (Auto) 0.4 th/mm3 (0.0-0.9); Mono % (Auto) 8.6 % (0.0-8.0); Neut # (Auto) 3.2 th/mm3 (1.8-7.7); Neut % (Auto) 62.1 % (16.0-70.0); Platelet Count 207 th/mm3 (150-450); Red Cell Distribution Width 15.7 % (11.6-17.2)
[2018-02-22 07:10] LABS: Chloride 107 meq/L (98-107); Potassium 4.2 meq/L (3.5-5.1); Sodium 139 meq/L (136-145)
[2018-02-22 07:39] LABS: Alanine Aminotransferase 19 U/L (12-78); Alkaline Phosphatase 104 U/L (45-117); Anion Gap 7 meq/L (5-15); Aspartate Aminotransferase 10 U/L (15-37); Blood Urea Nitrogen 30 mg/dL (7-18); Carbon Dioxide 25.2 meq/L (21.0-32.0); Glomerular Filtration Rate 36 mL/min (>89); Glucose,Random 165 mg/dL (74-106); Total Protein 7.2 g/dL (6.4-8.2)
[2018-02-22 07:46] LABS: Ovalocytes 1+; Spherocytes 1+; Target Cells 1+
[2018-02-22] MEDS: Insulin Detemir Inj 1,000 UNIT/10 ML Vial SQ SCH ×2 (08:46→21:07)
[2018-02-22] MEDS: Gabapentin 300 MG Capsule PO SCH ×2 (08:47→21:53)
[2018-02-22] MEDS: Insulin NovoLOG Aspart Correctional Sugar Inj SQ SCH ×4 (08:47→21:54)
[2018-02-22] MEDS: Metoprolol Tartrate 25 MG Tablet PO SCH (08:48)
[2018-02-22] MEDS: amLODIPine 10 MG Tablet PO SCH (08:48)
[2018-02-22] MEDS: Morphine Inj 4 MG/ML Vial IV.PUSH PRN ×3 (08:55→21:54)
[2018-02-22] MEDS: Heparin - SQ 10,000 UNITS/ML Vial SQ SCH ×2 (08:57→21:53)
[2018-02-22] MEDS: Sod Chloride 0.9% Inj 1,000 ML IV.CONT SCH (12:30)
--- NOTE | 2018-02-22 14:06 | P.PN ---
Subjective Interval history: Follow-up nausea and vomiting. States he is better tolerated liquid diet this morning. Awaiting gastric emptying study. Negative EGD a year ago for similar symptoms. Physical Exam Vital signs: Vital Signs 02/21/18 16:00 02/21/18 20:00 02/22/18 00:00 Temperature 97.8 F 97.6 F 97.9 F Pulse Rate 75 69 70 Respiratory Rate 18 18 18 Blood Pressure 157/86 H 144/83 H 135/83 Pulse Oximetry 99 98 99 02/22/18 08:00 02/22/18 08:57 02/22/18 12:00 Temperature 98.6 F 98.0 F Pulse Rate 79 58 L Respiratory Rate 17 18 16 Blood Pressure 131/85 156/83 H Pulse Oximetry 98 97 Intake & Output 02/21/18 02/22/18 02/22/18 18:59 06:59 18:59 Intake Total 1000 / 1000 1480 / 1480 1300 / 1300 Output Total 500 / 500 Balance 500 / 500 1480 / 1480 1300 / 1300 Weight 115.2 kg 115.2 kg Intake: IV 1000 / 1000 1000 / 1000 1000 / 1000 NS Inj 1,000 ML @ 84 mls/hr IV. 1000 / 1000 1000 / 1000 CONT .[id number] MOE Rx#: [id number] NS Inj 1,000 ML @ Wide Open IV. 1000 / 1000 SIG BOLUS MOE Rx#:[id number] Oral 480 / 480 300 / 300 Output: Urine 500 / 500 Other: # Voids 2 1 Narrative: GENERAL: NAD, A&Ox3, e. CARDIOVASCULAR: Regular rate and rhythm without murmurs, gallops, or rubs. RESPIRATORY: Breath sounds equal bilaterally. No accessory muscle use. GASTROINTESTINAL: Abdomen soft, non-tender, nondistended. MUSCULOSKELETAL: No cyanosis, or edema. SKIN: Warm and dry. NEURO: No focal neurological deficits. Results - Labs CBC & Chem 7: 02/22/18 06:40 02/22/18 06:40 Laboratory Results - last 24 hr 02/21/18 02/22/18 02/22/18 21:45 00:36 06:40 CBC w Diff Slide review pending WBC 5.0 RBC 5.20 Hgb 11.7 L Hct 36.8 L MCV 70.8 L MCH 22.5 L MCHC 31.7 L RDW 15.7 Plt Count 207 MPV 8.6 Neut % (Auto) 62.1 Lymph % (Auto) 25.9 Hayes % (Auto) 8.6 H Eos % (Auto) 2.8 Baso % (Auto) 0.6 Neut # (Auto) 3.2 Lymph # (Auto) 1.3 Hayes # (Auto) 0.4 Eos # (Auto) 0.1 Baso # (Auto) 0.0 WBC Differential . Diff Scan Auto diff confirmed Differential Comment . Spherocytes 1+ H Target Cells 1+ H Ovalocytes 1+ H Sodium Potassium Chloride Carbon Dioxide Anion Gap BUN Creatinine Estimated GFR POC Glucose 194 H 278 H Random Glucose Calcium Total Bilirubin AST ALT Alkaline Phosphatase Total Protein Albumin 02/22/18 02/22/18 02/22/18 06:40 07:54 11:55 CBC w Diff WBC RBC Hgb Hct MCV MCH MCHC RDW Plt Count MPV Neut % (Auto) Lymph % (Auto) Hayes % (Auto) Eos % (Auto) Baso % (Auto) Neut # (Auto) Lymph # (Auto) Hayes # (Auto) Eos # (Auto) Baso # (Auto) WBC Differential Diff Scan Differential Comment Spherocytes Target Cells Ovalocytes Sodium 139 Potassium 4.2 Chloride 107 Carbon Dioxide 25.2 Anion Gap 7 BUN 30 H Creatinine 2.30 H Estimated GFR 36 L POC Glucose 155 H 138 H Random Glucose 165 H Calcium 8.0 L D Total Bilirubin 0.6 AST 10 L ALT 19 Alkaline Phosphatase 104 Total Protein 7.2 D Albumin 3.0 L - Imaging ITS Impressions Abdomen/Pelvis CT 02/21/18 10:25 CONCLUSION: 1. Unremarkable bowel gas pattern. 2. Unremarkable gallbladder. 3. No visualized etiology to explain the patient's pain. - Procedures none Assessment and Plan - Assessment (1) Hyperemesis Code(s): R11.10 - Vomiting, unspecified Status: Acute (2) Abdominal pain Code(s): R10.9 - Unspecified abdominal pain Status: Acute (3) Vomiting Code(s): R11.10 - Vomiting, unspecified Status: Acute (4) Accelerated hypertension Code(s): I10 - Essential (primary) hypertension Status: Acute - Plan 52-year-old male admitted secondary to abdominal pain with hyperemesis and hypertensive urgency Hyperemesis Abdominal pain Possible gastroparesis Improving continue IV hydration Clear liquids as tolerated Pain treatments as needed Zofran Scheduled Reglan For GES Diabetes mellitus type 2 Follow blood sugars Insulin sliding scale Diabetic diet once able to take p.o. Hypertensive urgency on HTN Improving PRN IV enalapril Follow blood pressures Continue baseline treatments Hyperlipidemia Continue present treatment Follow as an outpatient Chronic kidney disease stage III Follow-up BUN and creatinine Diabetic retinopathy History of gastric ulcer Hiatal hernia Macular degeneration Obesity Peripheral neuropathy Gastroesophageal reflux disease Continue baseline treatments No exacerbation of these conditions DVT prophylaxis Heparin Discharge Planning: Pending GES. Advance diet as tolerated
--- NOTE | 2018-02-22 15:56 | NM ---
EXAM DATE: 02/22/2018 12:44 PM EDT AGE/SEX: 52 years / Male INDICATIONS: Nausea and vomiting with abdominal pain for one day. CLINICAL DATA: This is the patient's initial encounter. Patient reports that signs and symptoms have been present for 1 day and indicates a pain score of 5/10. MEDICAL/SURGICAL HISTORY: Diabetes mellitus type II. Hypertension. Chronic renal failure. Non e. COMPARISON: [facility], CT ABDOMEN & PELVIS W/O CONTRAST, 02/21/2018. [facility], CT ABDOMEN & PELVIS W CONTR AST, 08/10/2017. . No external comparison. DOSE: 1.0 mCi Tc99m Sulfur Colloid Labeled Whole Egg PO MEDICATION: 5 mg Reglan IV at 90 min. minutes. IMAGING TIME: 2 hr TECHNIQUE: Following the oral ingestion of radiotracer-labeled meal, dynamic sequential images in the BELARUSIAN projection were acquired with simultaneous computer acquisition. The data set was decay-correcte d. FINDINGS: Lag Phase: There is 30 minutes before onset of gastric emptying. Emptying: Gastric emptying kinetics are linear. The decay-corrected, back-extrapolated half-time of emptying is 46 minutes. (Normal for this lab is 45 - 90 minutes) Intervention: Reglan was administered at 90 minutes and most of the remainder of the activity emptie s. CONCLUSION: 1. Normal gastric emptying half-time and kinetics. Electronically signed by: Bronson Guadalupe MD 02/22/2018 3:54 PM EDT
[2018-02-23] MEDS: Morphine Inj 4 MG/ML Vial IV.PUSH PRN (03:10)
[2018-02-23] MEDS: Sod Chloride 0.9% Inj 1,000 ML IV.CONT SCH ×2 (03:10→11:41)
[2018-02-23] MEDS: Insulin Detemir Inj 1,000 UNIT/10 ML Vial SQ SCH (08:39)
[2018-02-23] MEDS: Metoprolol Tartrate 25 MG Tablet PO SCH (08:40)
[2018-02-23] MEDS: Heparin - SQ 10,000 UNITS/ML Vial SQ SCH (08:40)
[2018-02-23] MEDS: amLODIPine 10 MG Tablet PO SCH (08:40)
[2018-02-23] MEDS: Gabapentin 300 MG Capsule PO SCH (08:41)
--- NOTE | 2018-02-23 09:11 | P.DS ---
Date of admission: 02/21/18 11:46 Primary care physician: No Primary Care Physician Brief History from admission: Mr. Coffey is a 52-year-old male. He came into the hospital secondary to nausea vomiting and abdominal pain. He says he has had episodes like this before. No formal diagnosis of gastroparesis but he does have diabetes at baseline. Past history of recurrent episodes like this are suggestive of gastroparesis. Currently she cannot tolerate anything p.o. so testing for that is not possible immediately. No fevers reported. No other complaints. The symptoms have been ongoing for about 24 hours and he has no sick contacts. DS: Diagnosis - Discharge Diagnosis (1) Hyperemesis Status: Acute (2) Abdominal pain Status: Acute (3) Vomiting Status: Acute (4) Accelerated hypertension Status: Acute DS: Summary Hospital Course: 52-year-old male admitted secondary to abdominal pain with hyperemesis and hypertensive urgency Hyperemesis Abdominal pain Negative GES Clinically improved denies nausea and tolerating diet. Likely patient had gastroenteritis Pain treatments as needed Zofran prn If recurrent symptoms obtain HIDA scan which can be done outpatient. Patient to follow-up with his GI Diabetes mellitus type 2 Follow blood sugars Insulin sliding scale Diabetic diet Hypertensive urgency on HTN Improving PRN IV enalapril Follow blood pressures Continue baseline treatments Hyperlipidemia Continue present treatment Follow as an outpatient Chronic kidney disease stage III. Stable Follow-up BUN and creatinine Diabetic retinopathy History of gastric ulcer Hiatal hernia Macular degeneration Obesity Peripheral neuropathy Gastroesophageal reflux disease Continue baseline treatments No exacerbation of these conditions DVT prophylaxis Heparin - Time Spent with Patient Total time spent providing and/or coordinating discharge services: Greater than 30 minutes - Quality: VTE Deep Vein Thrombosis/Pulmonary Embolism Present on Admission: No Exam Vital signs: Vital Signs 02/22/18 12:00 02/22/18 16:00 02/22/18 16:38 Temperature 98.0 F 98.2 F Pulse Rate 58 L 56 L Respiratory Rate 16 16 18 Blood Pressure 156/83 H 157/85 H Pulse Oximetry 97 97 02/22/18 20:00 02/23/18 00:00 Temperature 97.3 F L 97.7 F Pulse Rate 67 71 Respiratory Rate 18 18 Blood Pressure 157/94 H 133/86 Pulse Oximetry 100 99 Intake & Output 02/22/18 02/23/18 02/23/18 18:59 06:59 18:59 Intake Total 1600 / 1600 1999 / 1999 Balance 1600 / 1599 Weight 115.2 kg Intake: IV 1000 / 1000 1000 / 1000 NS Inj 1,000 ML @ 84 mls/hr IV. 1000 / 1000 1000 / 1000 CONT .[id number] MOE Rx#: [id number] Oral 600 / 600 1000 / 1000 Other: # Voids 1 3 Narrative: GENERAL: NAD, A&Ox3 CARDIOVASCULAR: Regular rate and rhythm without murmurs, gallops, or rubs. RESPIRATORY: Breath sounds equal bilaterally. No accessory muscle use. GASTROINTESTINAL: Abdomen soft, non-tender, nondistended. MUSCULOSKELETAL: No cyanosis, or edema. SKIN: Warm and dry. NEURO: No focal neurological deficits. Results Procedures completed during hospitalization: none Labs on day of discharge: Labs from last 24 hours 02/23/18 02/22/18 02/22/18 07:54 20:58 16:40 POC Glucose 99 195 H 123 H 02/22/18 11:55 POC Glucose 138 H - Impressions ITS Impressions Abdomen/Pelvis CT 02/21/18 10:25 CONCLUSION: 1. Unremarkable bowel gas pattern. 2. Unremarkable gallbladder. 3. No visualized etiology to explain the patient's pain. Gastric Emptying Nuclear Medicine 02/22/18 00:00 CONCLUSION: 1. Normal gastric emptying half-time and kinetics. Discharge Plan - Discharge Disposition Patient Disposition: Discharge Home - Discharge Condition Condition: Fair - Discharge Order Discharge Orders: Discharge Order (Routine); Ordered 02/23/18 Ordered By: Patrice Rehman - Physicians Team Primary Care Provider: Primary Care Rodriguez,Elizabeth Attending Provider: Patrice Rehman Other Providers: Brass Monkey,Insurance
[2018-02-23 09:23] VITALS: BP 141/82; PULSE 75; RESP 17; TEMP 98; O2SAT 98
[2018-02-23] MEDS: Insulin NovoLOG Aspart Correctional Sugar Inj SQ SCH (11:40)
== END 2018-02-23 10:41 | disposition home or self-care (01) ==
LOC: PHEDA 08:52 → PHED 08:52 → PH3 13:00
PROVIDERS: ADMIT Internal Medicine; ATTEND Internal Medicine

== ENCOUNTER 2018-05-19 15:38 | Inpatient (IN) ==
[2018-05-19 16:31] LABS: Baso # (Auto) 0.1 th/mm3 (0.0-0.2); Eos # (Auto) 0.1 th/mm3 (0.0-0.4); Eos % (Auto) 1.9 % (0.0-4.0); Hematocrit 38.8 % (39.0-51.0); Hemoglobin 12.4 gm/dL (13.0-17.0); Lymph # (Auto) 1.1 th/mm3 (1.0-4.8); Lymph % (Auto) 21.1 % (9.0-44.0); Mean Corpuscular HGB Conc 31.9 % (32.0-36.0); Mean Corpuscular Hemoglobin 22.4 pg (27.0-34.0); Mean Corpuscular Volume 70.3 fL (80.0-100.0); Mean Platelet Volume 9.1 fL (7.0-11.0); Mono # (Auto) 0.4 th/mm3 (0.0-0.9); Neut # (Auto) 3.5 th/mm3 (1.8-7.7); Platelet Count 197 th/mm3 (150-450); Red Blood Count 5.52 mil/mm3 (4.50-5.90); White Blood Count 5.2 th/mm3 (4.0-11.0)
[2018-05-19 16:37] LABS: Chloride 105 meq/L (98-107); Potassium 4.6 meq/L (3.5-5.1); Sodium 137 meq/L (136-145)
[2018-05-19 16:40] LABS: Calcium 8.5 mg/dL (8.5-10.1)
[2018-05-19 16:41] LABS: Anion Gap 8 meq/L (5-15); Blood Urea Nitrogen 26 mg/dL (7-18); Carbon Dioxide 23.7 meq/L (21.0-32.0); Glucose,Random 345 mg/dL (74-106); Lipase 369 U/L (73-393)
[2018-05-19 16:44] LABS: Alanine Aminotransferase 17 U/L (12-78); Aspartate Aminotransferase 9 U/L (15-37); Glomerular Filtration Rate 43 mL/min (>89)
[2018-05-19 16:45] LABS: Total Protein 7.1 g/dL (6.4-8.2)
[2018-05-19 16:46] LABS: Alkaline Phosphatase 100 U/L (45-117)
[2018-05-19 16:49] LABS: Troponin I 0.02 ng/mL (0.02-0.05)
--- NOTE | 2018-05-19 16:54 | XR ---
EXAM DATE: 05/19/2018 4:51 PM EST AGE/SEX: 52 years / Male INDICATIONS: Chest pain. CLINICAL DATA: This is the patient's initial encounter. Patient reports that signs and symptoms have been present for 4 - 6 days and indicates a pain score of 8/10. MEDICAL/SURGICAL HISTORY: Hypertension. Diabetes mellitus type II. None. COMPARISON: [facility], CHEST 1V SINGLE AP, 11/26/2017. . FINDINGS: A single AP view of the chest demonstrates the lungs to be symmetrically aerated without evidence of mass, infiltrate or effusion. The cardiomediastinal contours are unremarkable. Osseous structures a re intact. CONCLUSION: No acute disease Electronically signed by: Jameson Singh MD Board Certified Radiologist 05/19/2018 4:53 PM EST
--- NOTE | 2018-05-19 16:58 | ED ---
HPI General Chief Complaint: Chest Pain Stated Complaint: Chest pain started x 5 days/interim Time Seen by Provider: 05/19/18 16:19 History of Present Illness HPI narrative: Patient is a 52-year-old black male who presented today with a 5- day history of chest pain. The chest pain began Tuesday morning when he awoke and has fluctuated since then. He currently rates it 8/10 and says it radiates from his neck down to his left arm. The pain is aggravated with any movement and is partially relieved by rest but never goes away. He is prescribed nitroglycerin but it did not help. He also reports shortness of breath at baseline, but it has been worse this week. He says he cannot walk more than 15 feet without becoming short of breath. He has intermittent chest pain and had a catheterization 1 year ago, but had no stents placed. 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 He also reports daily vomiting which is not out of the ordinary for him as he has diabetic gastroparesis. Denies lightheadedness, change in vision, headache, edema, constipation, diarrhea, change in bowel function. Modifying Factors: None Associated Signs & Symptoms: Chest pain rated at 8 out of 10, nausea and vomiting, dyspnea on exertion Risk Factors: Cardiac history Related Data Home Medications Medication Instructions Recorded Confirmed gabapentin 300 mg PO BID 02/21/18 05/19/18 Previous Rx's Medication Instructions Recorded amlodipine [Norvasc] 10 mg PO DAILY #30 tab 11/29/17 aspirin 81 mg PO DAILY #30 tab 11/29/17 atorvastatin 80 mg PO HS #30 tab 11/29/17 insulin detemir U-100 [Levemir 36 unit SUB-Q BID #7 vial 11/29/17 U-100 Insulin] insulin lispro [Humalog U-100 12 unit SUB-Q TID #7 vial 11/29/17 Insulin] metoprolol tartrate 25 mg PO DAILY #30 tab 11/29/17 nitroglycerin [Nitrostat] 0.4 mg SUBLINGUAL Q5M PRN #100 tab 11/29/17 Allergies Allergy/AdvReac Type Severity Reaction Status Date / Time metformin AdvReac Intermediate nausea and Verified 05/19/18 16:01 vomiting Review of Systems ROS: all other systems reviewed are negative Constitutional Reports as per HPI and Reports fatigue Cardiovascular Reports chest pain, Reports chest pain at rest, Reports radiating jaw, neck or arm pain and Reports dyspnea on exertion Respiratory Reports as per HPI and Reports dyspnea on exertion Gastrointestinal Reports heartburn, Reports nausea and Reports vomiting [facility] Medical History Medical History Amputated toe of left foot (Acute) Blood cholesterol increased compared with prior measurement (Acute) Chronic back pain (Acute) Chronic kidney disease, stage 3 (Acute) Degenerative joint disease of knee (Acute) Diabetic acidosis, type II (Acute) Diabetic retinopathy (Acute) Gastric ulcer (Acute) Gastroparesis (Acute) Hiatal hernia (Acute) Hyperlipemia (Acute) Hypertension (Acute) Macular degeneration (Acute) Obesity (BMI 30-39.9) (Acute) Peripheral neuropathy (Acute) Reflux gastritis (Acute) Ulcer (Acute) Surgical History Surgical History H/O toe surgery (Acute) History of cardiac catheterization (Acute) History of esophagogastroduodenoscopy (Acute) History of removal of cyst (Acute) Family History Family History Mother Family history of hypertension Father Family history of hypertension Social History Social History Substance History: No History of Abuse Second Hand Smoke Exposure: No Smoking Status: Never smoker How Often Do You Have a Drink Containing Alcohol: Never Recent Travel in [facility] [place] within the Last 8 Weeks: No Recent Out of Country Travel within the Last 8 Weeks: No Immunization History Tetanus Immunization: <5 Years Exam Narrative Exam Narrative: GENERAL: Well-developed obese middle-aged male patient currently in mild distress. Awake and oriented x3. SKIN: Focused skin assessment warm/dry. HEAD: Atraumatic. Normocephalic. EYES: Pupils equal and round. No scleral icterus. No injection or drainage. ENT: No nasal bleeding or discharge. Mucous membranes pink and moist. NECK: Trachea midline. No JVD. Supple. CARDIOVASCULAR: Regular rate and rhythm. No murmur appreciated. Pulses are present and equal bilaterally. RESPIRATORY: No accessory muscle use. Decreased throughout bilaterally. Breath sounds equal bilaterally. GASTROINTESTINAL: Abdomen soft, non-tender, nondistended. Hepatic and splenic margins not palpable. MUSCULOSKELETAL: No obvious deformities. No clubbing. No cyanosis. No edema. NEUROLOGICAL: Awake and alert. No obvious cranial nerve deficits. Motor grossly within normal limits. Normal speech. PSYCHIATRIC: Appropriate mood and affect; insight and judgment normal. Const General: well developed and other (Uncomfortable) Nutritional Appearance: obese Orientation: alert, awake and oriented x3 HENMT Head: normal to inspection Ears: hearing grossly normal bilaterally Neck Neck: normal visual inspection and no JVD Carotids: normal carotid upstroke Chest Chest: normal inspection of the chest and normal palpation of entire chest wall Other: Diffuse tenderness to mild palpation of the chest Resp Effort & Inspection: normal respiratory effort and able to speak in complete sentences Auscultation: clear to auscultation bilaterally Cardio Jugular venous pressure: no JVD Palpation: normal PMI Rate: bradycardic Rhythm: regular rhythm Heart Sounds: S1 normal and S2 normal Pulses: radial pulses present GI Inspection: obesity Palpation: soft Auscultation: normal bowel sounds Extrem General: normal to inspection and no clubbing, cyanosis or edema Course Initial Documented Vital Signs Temperature 97.1 F L 05/19/18 16:01 Pulse Rate 55 L 05/19/18 16:01 Respiratory Rate 20 05/19/18 16:01 Blood Pressure 148/97 H 05/19/18 16:01 Pulse Oximetry 100 05/19/18 16:01 Last Documented Vital Signs Temperature 97.1 F L 05/19/18 16:01 Pulse Rate 63 05/19/18 16:41 Respiratory Rate 20 05/19/18 16:41 Blood Pressure 166/80 H 05/19/18 16:41 Pulse Oximetry 100 05/19/18 16:41 Medical Decision Making [facility] Narrative Medical decision making narrative: EKG and lab work is fairly unremarkable. Chest x-ray did not show any signs of acute pulmonary processes. Troponins are negative. My plan would be to admit him to the chest pain center for further evaluation. He was given aspirin in the ER concerning patient's cardiac history , and Reglan for nausea. Medical Screen Exam Complete: Yes Emergency Medical Condition: Yes Differential Diagnosis Differential Diagnosis: ACS versus costochondritis versus pneumonia versus GI Lab Data Lab results reviewed: Yes I reviewed the patient's lab results. Result diagrams: 05/19/18 16:15 05/19/18 16:15 Lab Results 05/19/18 05/19/18 05/19/18 Range/Units 16:15 16:15 16:15 CBC w Diff Slide review pending WBC 5.2 (4.0-11.0) th/mm3 RBC 5.52 (4.50-5.90) mil/mm3 Hgb 12.4 L (13.0-17.0) gm/dL Hct 38.8 L (39.0-51.0) % MCV 70.3 L (80.0-100.0) fL MCH 22.4 L (27.0-34.0) pg MCHC 31.9 L (32.0-36.0) % RDW 14.0 (11.6-17.2) % Plt Count 197 (150-450) th/mm3 MPV 9.1 (7.0-11.0) fL Neut % (Auto) 69.0 (16.0-70.0) % Lymph % (Auto) 21.1 (9.0-44.0) % [place] % (Auto) 7.0 (0.0-8.0) % Eos % (Auto) 1.9 (0.0-4.0) % Baso % (Auto) 1.0 (0.0-2.0) % Neut # (Auto) 3.5 (1.8-7.7) th/mm3 Lymph # (Auto) 1.1 (1.0-4.8) th/mm3 [facility] # (Auto) 0.4 (0.0-0.9) th/mm3 Eos # (Auto) 0.1 (0.0-0.4) th/mm3 Baso # (Auto) 0.1 (0.0-0.2) th/mm3 WBC Differential . Diff Scan Auto diff confirmed Differential Comment . Sodium 137 (136-145) meq/L Potassium 4.6 (3.5-5.1) meq/L Chloride 105 (98-107) meq/L Carbon Dioxide 23.7 (21.0-32.0) meq/L Anion Gap 8 (5-15) meq/L BUN 26 H (7-18) mg/dL Creatinine 2.00 H (0.60-1.30) mg/dL Estimated GFR 43 L (>89) mL/min Random Glucose 345 H (74-106) mg/dL Calcium 8.5 (8.5-10.1) mg/dL Total Bilirubin 0.2 (0.2-1.0) mg/dL AST 9 L (15-37) U/L ALT 17 (12-78) U/L Alkaline Phosphatase 100 (45-117) U/L Troponin I 0.02 (0.02-0.05) ng/mL B-Natriuretic Peptide 75 (0-100) pg/mL Total Protein 7.1 (6.4-8.2) g/dL Albumin 3.0 L (3.4-5.0) g/dL Lipase 369 (73-393) U/L Imaging Data Attestation: I personally reviewed and interpreted this imaging study as follows : Radiologist's impression: Chest X-Ray 05/19/18 16:19 CONCLUSION: No acute disease ECG Data Attestation: I personally reviewed and interpreted this ECG as follows: Interpretation: EKG shows a sinus bradycardia rate of 53 4 bpm. No signs of acute ST elevations or depressions. Discharge Plan Discharge Disposition Patient Disposition: ED Admit(ED Internal Use Only) Discharge Condition Condition: Stable Discharge Order Discharge Orders: ED Use Only Admit Order (Routine); Ordered 05/19/18 Ordered By: Fabian Mallory Discharge Details Anticipated Discharge Date: 05/19/18 Diagnosis: Chest pain Physicians Team ED Provider: Fabian Mallory Primary Care Provider: Primary Care Elizabeth Frias Rxs /Orders / Referrals /Forms Prescriptions: No Action atorvastatin 80 mg Tablet 80 mg PO HS Qty: 30 RF: 0 aspirin 81 mg Tablet,Delayed Release (Dr/Ec) 81 mg PO DAILY Qty: 30 RF: 0 amlodipine [Norvasc] 10 mg Tablet 10 mg PO DAILY Qty: 30 RF: 0 nitroglycerin [Nitrostat] 0.4 mg Tablet, Sublingual 0.4 mg Sublingual Q5M PRN (Reason: Chest Pain) Qty: 100 RF: 0 insulin lispro [Humalog U-100 Insulin] 100 unit/mL Solution 12 unit SUB-Q TID Qty: 7 RF: 0 metoprolol tartrate 25 mg Tablet 25 mg PO DAILY Qty: 30 RF: 0 insulin detemir U-100 [Levemir U-100 Insulin] 100 unit/mL Solution 36 unit SUB-Q BID Qty: 7 RF: 0 gabapentin 300 mg Capsule 300 mg PO BID RF: 0 Discharge Instructions Patient Printed Instructions: Chest Pain (ED) Status ED Status: Admitted Patient
[2018-05-19] MEDS ORDERED: Morphine Inj 4 MG/ML Vial IV.PUSH ONE (17:16)
[2018-05-19] MEDS ORDERED: Dextrose 50% in Water 50 ML Vial IV.PUSH PRN (17:52)
[2018-05-19 18:12] LABS: Prothrombin Time 10.4 sec (9.8-11.6)
[2018-05-19 22:07] LABS: Troponin I 0.02 ng/mL (0.02-0.05)
[2018-05-20] MEDS: Metoprolol Tartrate 25 MG Tablet PO SCH ×4 (00:23→21:47)
[2018-05-20] MEDS: Gabapentin 300 MG Capsule PO SCH ×3 (00:23→21:48)
[2018-05-20] MEDS: Insulin Detemir Inj 1,000 UNIT/10 ML Vial SQ SCH ×3 (00:24→21:50)
[2018-05-20] MEDS ORDERED: Morphine Sulfate Inj 2 MG/ML Vial IV.PUSH ONE ×2 (01:26→12:24)
[2018-05-20 02:34] LABS: Troponin I 0.02 ng/mL (0.02-0.05)
[2018-05-20] MEDS ORDERED: Morphine Inj 4 MG/ML Vial IV.PUSH ONE ×3 (03:15→23:30)
[2018-05-20] MEDS ORDERED: Aspirin 325 MG Tablet PO SCH (09:00)
[2018-05-20] MEDS: amLODIPine 10 MG Tablet PO SCH (09:45)
--- NOTE | 2018-05-20 13:18 | P.HPIM ---
History of Present Illness Primary Care Physician: No Primary Care Physician History of Present Illness: 52-year-old male with history of hypertension, hyperlipidemia, diabetes mellitus , chronic kidney disease stage III, gastroparesis, abnormal stressin November of this year who follows with Dr. Aguilar. He presents with a 3-month history of progressively worsening intermittent sharp left sided chest pain radiating to left arm. He says that chest pain is worse with deep inspiration as well. He has been getting worse over the past several days, occurring several times per day, lasting for about an hour and a half. this is accompanied by shortness of breath during the chest pain episodes. Patient also notes a several week history of worsening bilateral lower extremity edema Review of Systems All other systems reviewed negative except as stated in HPI PMFSH - History History Provided By: Patient - Medical History Medical History: Medical History (Last Reviewed 05/20/18 @ 13:20 by Trevor Morales MD) Amputated toe of left foot Blood cholesterol increased compared with prior measurement Chronic back pain Chronic kidney disease, stage 3 Degenerative joint disease of knee Diabetic acidosis, type II Diabetic retinopathy Gastric ulcer Gastroparesis Hiatal hernia Hyperlipemia Hypertension Macular degeneration Obesity (BMI 30-39.9) Peripheral neuropathy Reflux gastritis Ulcer - Surgical History Surgical History: Surgical History (Last Reviewed 05/20/18 @ 13:20 by Trevor Morales MD) H/O toe surgery History of cardiac catheterization History of esophagogastroduodenoscopy History of removal of cyst - Family History Family History: Family History (Last Reviewed 05/20/18 @ 13:20 by Trevor Morales MD) Mother Family history of hypertension Father Family history of hypertension - Social History I have reviewed the patient's Social History: Yes - Tobacco History Second Hand Smoke Exposure: No Smoking Status: Never smoker - Alcohol History How Often Do You Have a Drink Containing Alcohol: Never - Substance Use History Substance History: No History of Abuse - Travel History Recent Travel in the [place] Within the Last 8 Weeks: No Recent Travel Out of the Country Within the Last 8 Weeks: No - Immunization History Tetanus Immunization: <5 Years Medications and Allergies Active Medications: Active Medications Amlodipine Besylate (Norvasc) 10 mg PO DAILY [facility] Last Admin: 05/20/18 09:45 Dose: 10 mg Aspirin (Ecotrin) 81 mg PO DAILY [facility] Last Admin: 05/20/18 09:45 Dose: 81 mg Atorvastatin Calcium (Lipitor) 80 mg PO HS [facility] Last Admin: 05/20/18 00:23 Dose: 80 mg Dextrose (D50w Vial) 50 ml IV.PUSH UNSCH PRN PRN Reason: PER HYPOGLYCEMIA PROTOCOL Gabapentin (Neurontin) 300 mg PO BID [facility] Last Admin: 05/20/18 09:45 Dose: 300 mg Insulin Detemir (Levemir Inj) 26 unit SQ BID [facility] Last Admin: 05/20/18 09:46 Dose: 26 unit Metoprolol Tartrate (Lopressor) 25 mg PO BID [facility] Last Admin: 05/20/18 09:49 Dose: Not Given Sodium Chloride (Ns Flush) 2 ml IV.FLUSH UNSCH PRN PRN Reason: FLUSH AFTER USING IV ACCESS Sodium Chloride (Ns Flush) 2 ml IV.FLUSH BID [facility] Last Admin: 05/20/18 09:46 Dose: 2 ml Sodium Chloride (Ns Flush) 2 ml IV.FLUSH PRN PRN PRN Reason: FLUSH AFTER USING IV ACCESS Allergies Allergy/AdvReac Type Severity Reaction Status Date / Time clavulanic acid Allergy Anaphylaxis Verified 05/20/18 12:54 [From Timentin] ticarcillin [From Timentin] Allergy Anaphylaxis Verified 05/20/18 12:54 metformin AdvReac Intermediate nausea and Verified 05/19/18 16:01 vomiting Home Medications Medication Instructions Recorded Confirmed Type gabapentin 300 mg PO BID 02/21/18 05/19/18 History Exam Vital signs: Vital Signs 05/19/18 16:01 05/19/18 16:05 05/19/18 16:25 Temperature 97.1 F L Pulse Rate 55 L 58 L Respiratory Rate 20 20 Blood Pressure 148/97 H 167/95 H Pulse Oximetry 100 98 98 05/19/18 16:41 05/19/18 17:43 05/19/18 18:28 Temperature Pulse Rate 63 60 60 Respiratory Rate 20 18 18 Blood Pressure 166/80 H 154/78 H 152/76 H Pulse Oximetry 100 98 05/19/18 20:00 05/19/18 23:24 05/20/18 00:00 Temperature 96.4 F L 97.7 F Pulse Rate 55 L 56 L Respiratory Rate 20 20 Blood Pressure 160/82 H 155/72 H Pulse Oximetry 100 98 99 05/20/18 00:37 05/20/18 04:00 05/20/18 08:00 Temperature 97.1 F L 97.6 F Pulse Rate 53 L 53 L Respiratory Rate 8 L 20 15 Blood Pressure 161/80 H 139/83 Pulse Oximetry 98 98 05/20/18 12:00 Temperature 97.0 F L Pulse Rate 55 L Respiratory Rate 17 Blood Pressure 158/95 H Pulse Oximetry 100 Intake & Output 05/19/18 05/20/18 05/20/18 18:59 06:59 18:59 Intake Total 0 / 0 Balance 0 / 0 Weight 124.9 kg 124.6 kg Intake: Oral 0 / 0 Other: # Voids 3 Narrative: GENERAL: Sitting up in bed. Appears comfortable. Breathing comfortably. SKIN: Warm and dry. HEAD: Atraumatic. Normocephalic. EYES: Pupils equal and round. No scleral icterus. No injection or drainage. ENT: No nasal bleeding or discharge. Mucous membranes pink and moist. NECK: Trachea midline. No JVD. CARDIOVASCULAR: Regular rate and rhythm. RESPIRATORY: No accessory muscle use. Clear to auscultation. Breath sounds equal bilaterally. GASTROINTESTINAL: Abdomen soft, non-tender, nondistended. Hepatic and splenic margins not palpable. MUSCULOSKELETAL: Extremities without clubbing, cyanosis, or edema. No edema. No obvious deformities. NEUROLOGICAL: Awake and alert. No obvious cranial nerve deficits. Motor grossly within normal limits. Five out of 5 muscle strength in the arms and legs. Normal speech. PSYCHIATRIC: Appropriate mood and affect; insight and judgment normal. Results - Labs CBC & Chem 7: 05/19/18 16:15 05/19/18 16:15 Labs: Short CBC 05/19/18 Range/Units 16:15 WBC 5.2 (4.0-11.0) th/mm3 Hgb 12.4 L (13.0-17.0) gm/dL Hct 38.8 L (39.0-51.0) % Plt Count 197 (150-450) th/mm3 BMP 05/19/18 16:15 Sodium 137 Potassium 4.6 Chloride 105 Carbon Dioxide 23.7 BUN 26 H Creatinine 2.00 H Calcium 8.5 Cardiac Enzymes 05/19/18 05/19/18 05/20/18 Range/Units 16:15 21:30 01:30 Total Creatine Kinase 129 103 (39-308) U/L Troponin I 0.02 0.02 0.02 (0.02-0.05) ng/mL Liver Function 05/19/18 Range/Units 16:15 Total Bilirubin 0.2 (0.2-1.0) mg/dL AST 9 L (15-37) U/L ALT 17 (12-78) U/L Alkaline Phosphatase 100 (45-117) U/L Albumin 3.0 L (3.4-5.0) g/dL - Imaging Impressions Chest X-Ray 05/19/18 16:19 CONCLUSION: No acute disease Caprini VTE Risk Assessment Caprini VTE Risk Assessment: No/Low Risk (score <= 1) Caprini Risk Assessment Model: Point Value = 1 Point Value = 2 Point Value = 3 Point Value = 5 Age 41-60 Minor surgery BMI > 25 kg/m2 Swollen legs Varicose veins or History of unexplained or recurrent spontaneous Oral contraceptives or hormone replacement Sepsis (< 1 month) Serious lung disease, including pneumonia (< 1 month) Abnormal pulmonary function Acute myocardial infarction Congestive heart failure (< 1 month) History of inflammatory bowel disease Medical patient at bed rest Age 61-74 Arthroscopic surgery Major open surgery (> 45 min) Laparoscopic surgery (> 45 min) Malignancy Confined to bed (> 72 hours) Immobilizing plaster cast Central venous access Age >= 75 History of VTE Family history of VTE Factor V Leiden Prothrombin [id number] Lupus anticoagulant Anticardiolipin antibodies Elevated serum homocysteine Heparin-induced thrombocytopenia Other congenital or acquired thrombophilia Stroke (< 1 month) Elective arthroplasty Hip, pelvis, or leg fracture Acute spinal cord injury (< 1 month) Prophylaxis Regimen: Total Risk Factor Score Risk Level Prophylaxis Regimen 0-1 Low Early ambulation 2 Moderate Order ONE of the following: *Sequential Compression Device (SCD) *Heparin 5000 units SQ BID 3-4 Higher Order ONE of the following medications: *Heparin 5000 units SQ TID *Enoxaparin/Lovenox 40 mg SQ daily (WT < 150 kg, CrCl > 30 mL/min) *Enoxaparin/Lovenox 30 mg SQ daily (WT < 150 kg, CrCl > 10-29 mL/min) *Enoxaparin/Lovenox 30 mg SQ BID (WT < 150 kg, CrCl > 30 mL/min) AND/OR *Sequential Compression Device (SCD) 5 or more Highest Order ONE of the following medications: *Heparin 5000 units SQ TID (Preferred with Epidurals) *Enoxaparin/Lovenox 40 mg SQ daily (WT < 150 kg, CrCl > 30 mL/min) *Enoxaparin/Lovenox 30 mg SQ daily (WT < 150 kg, CrCl > 10-29 mL/min) *Enoxaparin/Lovenox 30 mg SQ BID (WT < 150 kg, CrCl > 30 mL/min) AND *Sequential Compression Device (SCD) Assessment and Plan - Plan //Atypical chest pain //History of hyperlipidemia -History of perfusion scan in November of this year with mild area of reversibility Chest x-ray on this admission with no acute findings, troponin stable at 0.02. Chronic ST changes with no change from baseline. -Continue aspirin, metoprolol. -Due to pleuritic nature of pain, will check a d-dimer. -Discussed with cardiology, who will see the patient. Continue to monitor on telemetry. //Diabetes mellitus. -Glycemia in the 300s on medicine. Likely secondary to stress. -Diabetic diet, insulin sliding scale. Low-dose of long-acting insulin. Discussed Condition With: Patient, nurse, support director. Discharge Planning: When cleared by cardiology. H&P: Quality - VTE Deep Vein Thrombosis/Pulmonary Embolism Present on Admission: No
[2018-05-20] MEDS ORDERED: Dextrose 50% in Water 50 ML Vial IV.PUSH PRN (13:26)
[2018-05-20] MEDS: Insulin NovoLOG Aspart Correctional Sugar Inj SQ SCH ×2 (17:34→21:51)
--- NOTE | 2018-05-20 18:25 | ECG ---
Date Performed: 05/19/2018 Time Performed: 18:15:28 PTAGE: 52 years EKG: SINUS BRADYCARDIA LEFT VENTRICULAR HYPERTROPHY AND ST-T CHANGE ABNORMAL ECG PREVIOUS TRACING : 05/19/2018 15.45 Since the previous tracing, no significant change noted DOCTOR: Collin Davison Interpretating Date/Time 05/20/2018 18:23:33
--- NOTE | 2018-05-20 18:43 | ECG ---
Date Performed: 05/19/2018 Time Performed: 15:45:12 PTAGE: 52 years EKG: SINUS BRADYCARDIA BORDERLINE LEFT AXIS DEVIATION LEFT VENTRICULAR HYPERTROPHY AND ST-T [place] GE ABNORMAL ECG INTERPRETATION BASED ON A DEFAULT AGE OF 40 YEARS PREVIOUS TRACING : 11/26/2017 17.43 Since the previous tracing, no significant change not ed DOCTOR: Collin Davison Interpretating Date/Time 05/20/2018 18:42:25
--- NOTE | 2018-05-20 19:39 | ECG ---
Date Performed: 05/19/2018 Time Performed: 21:31:00 PTAGE: 52 years EKG: SINUS BRADYCARDIA LEFT VENTRICULAR HYPERTROPHY AND ST-T CHANGE ABNORMAL ECG PREVIOUS TRACING : 05/19/2018 18.15 Since the previous tracing, no significant change noted DOCTOR: Collin Davison Interpretating Date/Time 05/20/2018 19:37:50
[2018-05-21] MEDS: amLODIPine 10 MG Tablet PO SCH (09:39)
[2018-05-21] MEDS: Metoprolol Tartrate 25 MG Tablet PO SCH ×2 (09:40→21:37)
[2018-05-21] MEDS: Gabapentin 300 MG Capsule PO SCH ×2 (09:40→21:37)
[2018-05-21] MEDS: Insulin Detemir Inj 1,000 UNIT/10 ML Vial SQ SCH ×2 (09:41→21:36)
[2018-05-21] MEDS: Insulin NovoLOG Aspart Correctional Sugar Inj SQ SCH ×4 (09:42→21:35)
[2018-05-21] MEDS ORDERED: Morphine Inj 4 MG/ML Vial IV.PUSH ONE (11:45)
--- NOTE | 2018-05-21 11:48 | MB ---
cc: Renita Lopez MD,Sp Galan MD, MD DATE: 05/21/2018 Covering for Toby Aguilar MD. HISTORY OF PRESENT ILLNESS: Mr. Coffey is a pleasant 52-year-old gentleman with history of hypertension, hyperlipidemia, diabetes mellitus, chronic kidney disease, history of abnormal stress test, followed by Dr. Aguilar and has been treated medically because of his underlying kidney function and atypical chest discomfort, chronic kidney disease, stage III. Over the past few weeks, he has been having progressive chest pain that he describes as sharp in nature, can last more than an hour with radiation to the left arm and associated with nausea at times, questionable diaphoresis, and palpitations. Not necessarily exertional. He has some vague abdominal pain. He was diagnosed with gastroparesis as well, likely related to his diabetes. Denies otherwise palpitations, dizziness, or syncope. Denies orthopnea, PND, or ankle swellings. PAST MEDICAL AND SURGICAL HISTORY: List as mentioned above. 1. Status post amputated left foot toe 2. Hyperlipidemia. 3. Chronic back pains. 4. Degenerative joint disease. 5. Diabetic retinopathy. 6. Peptic ulcer disease. 7. Hiatal hernia. 8. Macular degeneration. 9. Obesity. 10. Peripheral neuropathy. SOCIAL HISTORY: Denies smoking or EtOH abuse or recreational drug abuse. FAMILY HISTORY: Positive for coronary artery disease and hypertension. Negative for cancer. REVIEW OF SYSTEMS: A 12-point review of systems was unremarkable, except as mentioned in the history of present illness. He has vague abdominal pains that he described as fullness or sharp at times with no associated vomiting, diarrhea, constipation, hematemesis, or hematochezia. ALLERGIES: CLAVULANIC ACID, TICARCILLIN, METFORMIN. PHYSICAL EXAMINATION: GENERAL: A 52-year-old gentleman, lying in bed without distress, alert and oriented x3, answers questions appropriately. VITAL SIGNS: Blood pressure is 130/88 mmHg, pulse of 60 beats per minute, respirations 14 per minute, afebrile. HEENT: Head is normocephalic. Pupils equal and reactive. Throat is within normal limits. NECK: Supple with no carotid bruit. No thyromegaly. No jugular venous distention noted. LUNGS: Clear to auscultation and percussion. CARDIOVASCULAR: S1, S2 are normal and distant with an S4 gallop. No rubs or murmurs. ABDOMEN: Mild diffuse tenderness mainly in the epigastric area or periumbilical. Normoactive bowel sounds. No organomegaly. No masses felt. EXTREMITIES: No clubbing, cyanosis, or edema. Pulses 2+ bilaterally and no bruit noted. NEUROLOGIC: Grossly intact with no focal deficits. RECTAL: Deferred. LABORATORY DATA: BUN of 26, creatinine 2.0, potassium 4.6, sodium 137. Troponin I is 0.02 x3. BNP of 75. Glucose of 386. TSH and free T4 levels in November were within normal limits. LDL cholesterol at that time was 60 with an HDL of 47, triglycerides of 190. EKG shows sinus rhythm with inferior and lateral nonspecific T-wave changes, not significantly changed from before. Borderline LVH. CBC shows a white count 5.2, hemoglobin 12.4, and a platelet count of 197. Chest x-ray was unremarkable. ASSESSMENT AND RECOMMENDATIONS: Chest discomfort/abnormal stress test. Atypical chest discomfort, however, with a history of "abnormal stress test." Recurrent admission with the same. We will transfer him to the [facility]. Continue his aspirin and statin and Norvasc as well as low-dose Lopressor. He is currently pain free. Dr. Cueva covering for Dr. Aguilar will be rounding on him in the morning and decide regarding further management. Might consider cardiac catheterization; however, with his underlying kidney function, there is a risk indeed with worsening of his kidney function. This was explained to the patient. Further definitive diagnostic testing per Dr. Cueva in the morning as mentioned. Repeat EKG and troponin in the morning. Thank you for the consultation. MD NAOMY Guardado/leah , 09:23 AM , 09:35 AM
--- NOTE | 2018-05-21 11:49 | P.PNIM ---
Subjective Interval history: Patient says that chest pain is continuing. Intermittent. Request pain medication. Physical Exam Vital signs: Vital Signs 05/20/18 12:00 05/20/18 16:00 05/20/18 19:47 Temperature 97.0 F L 97.2 F L Pulse Rate 55 L 54 L Respiratory Rate 17 17 Blood Pressure 158/95 H 128/84 Pulse Oximetry 100 99 99 05/20/18 20:00 05/20/18 23:55 05/21/18 04:00 Temperature 97.6 F 98.4 F 97.4 F L Pulse Rate 64 64 64 Respiratory Rate 20 20 20 Blood Pressure 132/78 186/91 H 131/84 Pulse Oximetry 100 97 96 05/21/18 08:00 05/21/18 08:29 Temperature 98.2 F Pulse Rate 63 Respiratory Rate 18 Blood Pressure 131/88 Pulse Oximetry 100 99 Intake & Output 05/20/18 05/21/18 05/21/18 18:59 06:59 18:59 Intake Total 960 / 960 480 / 480 Balance 960 / 960 480 / 480 Weight 124.7 kg Intake: Oral 960 / 960 480 / 480 Other: # Voids 4 Date of Last Bowel Movement 05/20/18 # Bowel Movements 0 Narrative: GENERAL: Patient lying in bed. Appears uncomfortable. SKIN: Warm and dry. HEAD: Normocephalic. EYES: No scleral icterus. No injection or drainage. NECK: Supple, trachea midline. No JVD. CARDIOVASCULAR: Regular rate and rhythm without murmurs, gallops, or rubs. RESPIRATORY: Breath sounds equal bilaterally. No accessory muscle use. GASTROINTESTINAL: Abdomen soft, non-tender, nondistended. MUSCULOSKELETAL: No cyanosis, or edema. BACK: Nontender without obvious deformity. No CVA tenderness. Results - Labs CBC & Chem 7: 05/19/18 16:15 05/19/18 16:15 Laboratory Results - last 24 hr 05/20/18 05/20/18 05/20/18 11:35 13:33 16:50 D-Dimer Quant (PE/DVT) 0.20 POC Glucose 121 H 207 H 05/20/18 05/21/18 21:50 07:21 D-Dimer Quant (PE/DVT) POC Glucose 196 H 183 H Assessment and Plan - Plan //Atypical chest pain //History of hyperlipidemia -History of perfusion scan in November of this year with mild area of reversibility Chest x-ray on this admission with no acute findings, troponin stable at 0.02. Chronic ST changes with no change from baseline. -Continue aspirin, metoprolol. -Due to pleuritic nature of pain, will check a d-dimer. -Discussed with cardiology, who will see the patient. Continue to monitor on telemetry. = 05/21. Cardiology would like to perform catheterization tomorrow. Patient will be transferred to [place]. Morphine today for pain. Recheck electrolytes tomorrow. //Diabetes mellitus. -Glycemia in the 300s on medicine. Likely secondary to stress. -Diabetic diet, insulin sliding scale. low dose long-acting insulin. Discharge Planning: When cleared by cardiology.
[2018-05-22] MEDS ORDERED: Heparin - SQ 10,000 UNITS/ML Vial SQ SCH (06:00)
[2018-05-22] MEDS: Gabapentin 300 MG Capsule PO SCH (08:41)
[2018-05-22] MEDS: amLODIPine 10 MG Tablet PO SCH (08:41)
[2018-05-22] MEDS: Metoprolol Tartrate 25 MG Tablet PO SCH (08:42)
[2018-05-22] MEDS: Insulin NovoLOG Aspart Correctional Sugar Inj SQ SCH ×2 (08:43→15:04)
[2018-05-22] MEDS: Insulin Detemir Inj 1,000 UNIT/10 ML Vial SQ SCH (08:43)
[2018-05-22 10:30] LABS: Hematocrit 41.2 % (39.0-51.0); Hemoglobin 12.3 gm/dL (13.0-17.0); Mean Corpuscular HGB Conc 29.8 % (32.0-36.0); Mean Corpuscular Hemoglobin 21.4 pg (27.0-34.0); Mean Corpuscular Volume 71.7 fL (80.0-100.0); Mean Platelet Volume 9.8 fL (7.0-11.0); Platelet Count 211 th/mm3 (150-450); Red Blood Count 5.75 mil/mm3 (4.50-5.90); Red Cell Distribution Width 14.5 % (11.6-17.2); White Blood Count 5.5 th/mm3 (4.0-11.0)
[2018-05-22 10:36] LABS: Potassium 4.2 meq/L (3.5-5.1)
[2018-05-22 10:38] LABS: Calcium 8.4 mg/dL (8.5-10.1)
[2018-05-22 11:02] LABS: Carbon Dioxide 23.7 meq/L (21.0-32.0)
[2018-05-22] MEDS ORDERED: Sod Chloride 0.9% Inj 1,000 ML IV.CONT SCH ×2 (11:45→13:00)
[2018-05-22] MEDS ORDERED: fentaNYL Citrate Inj 100 MCG/2 ML Ampul ONE (12:54)
[2018-05-22] MEDS ORDERED: Heparin/NS PF Inj 1,000 ML ONE (12:58)
--- NOTE | 2018-05-22 13:09 | P.PNIM ---
Subjective Interval history: 52-year-old gentleman admitted with recurrent chest pain and history of abnormal stress test. Patient transferred for cardiac catheterization Patient seen and examined, he states he is chest pain-free, states did have some nausea earlier but feeling better now, no shortness of breath, awaiting procedure today per Physical Exam Vital signs: Last Vital Signs Temp 97.5 F L 05/22/18 08:00 Pulse 68 05/22/18 08:00 Resp 20 05/22/18 08:00 BP 132/70 05/22/18 08:00 Pulse Ox 99 05/22/18 08:00 Intake & Output 05/20/18 05/21/18 05/22/18 05/23/18 06:59 06:59 06:59 06:59 Intake Total 0 / 0 1440 / 1440 1400 / 1400 0 / 0 Output Total 700 / 700 200 / 200 Balance 0 / 0 1440 / 1440 700 / 700 -200 / -200 Weight 124.6 kg 124.7 kg 126.7 kg Well-developed well-nourished -[place] 52-year-old male Awake alert oriented no acute distress Heart S1-S2 regular Lungs clear bilateral no wheeze no rhonchi good air movement Abdomen soft nondistended positive bowel sounds Extremities no clubbing cyanosis no edema Results Labs CBC & Chem 7: 05/22/18 06:10 05/22/18 06:10 Assessment and Plan Plan ATYPICAL CP concern for ANGINA in insulin dependent diabetic w htn, dyslipidemia w abnormal stress test hx, that has ongoing chest pain symptoms despite outpt conservative medical mgmnt , currently symptoms stable, awaiting cath, IDDM uncontrolled (last a1c 9.7, w diabetic neuropathy, nephropathy, and hx of toe amputation prob pvd (high risk of significant asvd) - cont insulin, diabetic diet and iss. HTN - controlled, CKD III - fluids pre cath, monitor DYSLIPIDEMIA - cont statin high dose PERIPHERAL NEUROPATHY diabetic on gabapentin OBESITY bmi 39 dvt prophylaxis - heparin dispo - pending clinical course, anticipate home w no needs. Progress Note: Quality VTE Deep Vein Thrombosis/Pulmonary Embolism Present on Admission: No
[2018-05-22] MEDS ORDERED: Iohexol 350 MG/ML 50 ML Vial (for Cath Lab) IVCONTRAST ONE (13:45)
--- NOTE | 2018-05-22 14:28 | CATHPROC ---
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 LV LV Ventricle Equipment Time Lime Sludge Mixer Description Size Mfg Part Number Used/Scraped TRANSDUCER, TRDocDocAVE [id number] 13:19 BRITTON SCHAEFER * Used W/STOCKCOCK *[id number] INTRODUCER SET, 13:19 [employer] FR 5 [id number] *[id number] Used MICROPUNCTURE STIFF 538-476 *[id number] 538-420 *[id number] 538-453S *[id number] 13:19 [employer] BLANKET,WARM AIR CCL * Used *[id number] 13:19 [employer] PACK, CCL CUSTOM * Used *[id number] 13:19 [employer] PACER PEN, SKIN DUAL W/ RULER * Used *[id number] 13:19 [employer] MEDICAL WIRE, 3MMJ .035 180CM 180CM Used *[id number] PROBE COVER, STERILE [id number] 13:19 [employer] * Used ULTRASOUND W/ GEL *[id number] 13:19 N[employer] MANIFOLD, 4 PORT * Used *[id number] 13:19 [employer] OMNIPAQUE, 350 MG, 150ML 150ML [id number] Used [id number] 13:19 [employer] MEDICAL SHEATH, FR4 TERUMO (10CM) FR 4 Used *[id number] 13:51 [employer] MED[employer] SHEATH, FR4 TERUMO (10CM) FR 4 Used *[id number] History: Current Medications Medication Dosage/Unit Route Frequency Last Date/Time Taken ASA 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 Statins (any) History: Allergies Allergy Reaction *MDRO Multi-Drug Resistant none Organism metformin nausea and vomiting TETININ Rash clavulanic acid Anaphylaxis ticarcillin Anaphylaxis History: Risk Factors Family History of Hypertension Dyslipidemia Previous IN Previous Heart Failure Premature CAD Yes Yes No No No Prior Valve Prior PCI Prior CABG Surgery No No No Cerebrovascular Peripheral Artery Chronic Lung On Dialysis Diabetes Diabetes Therapy Disease Disease Disease No No Yes No Yes Insulin History: Symptoms/Diagnosis Selection Items Chest pain History: Stress Tests Stress or Imaging Studies Performed Yes Standard Exercise Stress Test No Stress Echo No Stress Test SPECT Stress Test SPECT Result Stress Test SPECT Ischemia Risk/Extent Yes Positive Low Stress Test CMR No Cardiac CTA Coronary Calcium Score No No History: Other Current Smoker No Labs Hgb (g/dl) Hct (%) WBC (l/cumm) Platelets (thousands) 11.60-17.00 35.00-51.00 4.00-11.00 150.00-450.00 12.4 38.8 5.2 197 Glucose (mg/dl) BUN (mg/dl) Creatinine (mg/dl) BUN:Creatinine (1:x) 74.00-106.00 7.00-18.00 0.50-1.30 10.00-20.00 345 26 2.0 13 Na (meq/l) K (meq/l) 136.00-145.00 3.50-5.10 137 4.6 INR (PTT:PT) 0.90-1.10 1 Troponin I (ng/ml) CPK (u/l) CPK-MB (ng/ML) 0.02-0.05 26.00-308.00 0.50-3.60 0.02 103 Not Drawn Medication Medication Total Dose (Bolus/Oral) Medication Total Dosage/Unit 1% XYLOCAINE 20 mL FENTANYL 50 mcg VERSED 2 mg Medications (Bolus/Oral) Medication Time Given Dosage/Unit Administered By Reason VERSED 05/22/2018 1:36:38 PM 2 mg Feliz MEJÍA, Ubaldo 2 mg VERSED given in lab by Ubaldo Piper RN in Right Antecubital via Peripheral IV. Ordered by Sp Todd. FENTANYL 05/22/2018 1:37:09 PM 50 mcg Ubaldo Piper RN 50 mcg FENTANYL given in lab by Ubaldo Piper RN in Right Antecubital via Peripheral IV. Ordered by Sp Argueta. 1% XYLOCAINE 05/22/2018 1:44:34 PM 20 mL Sp Cueva 20 mL 1% XYLOCAINE given in lab by Sp Cueva in Right Groin via Subcutaneous. Ordered by Sp Candelaria. Medication (Drip) Medication Time Given Dosage/Unit Concentration/Unit Diluent (ml) Solutio n IV Solutions 05/22/2018 1:19:34 PM 0 mL (IV) 500 NaCl .9 Patient arrived on IV Solutions in Right Antecubital via Peripheral IV. Pump/Drip Flow = 20 ml/hr usi ng NaCl .9. Initial Case Assessment Cardiovascular HR Rhythm NIBP Chest Pain 66 sr 151/89 0 Circulatory - Right Pulses Dorsalis Pedis Femoral 3 2 Scale (0,1,2,3,4,d) Circulatory - Left Pulses Dorsalis Pedis Femoral 3 1 Scale (0,1,2,3,4,d) Neurological State Oriented to time-place- Alert Moves all extremities person Respiration - General Respiration Rate SpO2 (%) (B/min) 20 99 Final Case Assessment Cardiovascular HR Rhythm NIBP Chest Pain 73 sr 149/86 0 Circulatory - Right Pulses Dorsalis Pedis Femoral 3 2 Scale (0,1,2,3,4,d) Circulatory - Left Pulses Dorsalis Pedis Femoral 3 1 Scale (0,1,2,3,4,d) Neurological State Oriented to time-place- Alert Moves all extremities person Respiration - General Respiration Rate SpO2 (%) (B/min) 19 100 Chronological Log Time Study Chronological Log 13:13:11 Patient arrived via Bed. 13:13:15 Patient Name, D.O.B, / Armband Verified By R.N. 13:17:21 Pre-op and post- op instructions given; patient acknowledges understanding of instructions. 13:17:35 Verbal Stimulation=2 Physical Stimulation=2 Airway=2 Respiration=2 TOTAL=8. (0=absent, 1=li mited, 2=present) 13:19:04 Patient has been NPO for More than 6Hrs. 13:19:12 Skin Breakdown-none 13:19:15 Annie Prominences Protected 13:19:19 A # 20 IV was noted in the Antecubital (right). Grade = 0 13:19:34 Patient arrived on IV Solutions in Right Antecubital via Peripheral IV. Pump/Drip Flow = 20 ml/hr using NaCl .9. 13:19:56 History and physical on the chart or being dictated. Vitals capture started with the following parameters, Patient=Adult, Interval=5 min, Initial Pr fwcrch=132 mmHg, 13:19:59 Deflation Rate=5 mmHg, Cuff placed on Left Arm 13:20:02 Reference ECG taken Assessment: Initial Case, HR=66 BPM, Rhythm=sr, VLQR=956/89 mmhg, Chest Pain=0 Right Pulses: Kush Ped=3, Femoral=2 13:20:28 Left Pulses: Kush Ped=3, Femoral=1 Neurological: State=Alert, Ox3, SEE Respiration: Resp=20 B/min, SpO2=99 % 13:21:15 HR=64 bpm, BKJH=661/89 mmhg, LeI0=200.0 %, Resp=18 B/min 13:21:54 Bilateral groins prepped with 2% chlorhexidine, and draped after a 3 minute waiting time. 13:25:41 HR=67 bpm, APUS=335/87 mmhg, CpG5=481.0 %, Resp=18 B/min 13:28:27 MD paged 13:30:42 HR=70 bpm, XDJE=811/90 mmhg, LlG0=286.0 %, Resp=34 B/min 13:31:40 MD paged 13:35:43 HR=68 bpm, JVUR=318/85 mmhg, HjH7=189.0 %, Resp=16 B/min 13:36:02 MD arrived. 13:36:21 Pressure channel 1 zeroed. 13:36:38 2 mg VERSED given in lab by Ubaldo Piper RN in Right Antecubital via Peripheral IV. Ordered by Sp Cueva. 13:37:09 50 mcg FENTANYL given in lab by Ubaldo Piper RN in Right Antecubital via Peripheral IV. Ord ered by Sp Cueva. 13:40:46 HR=67 bpm, TWCV=334/80 mmhg, SyL5=874.0 %, Resp=16 B/min Time Out. Correct patient, correct procedure, correct physician, labs, allergies, and equipment verified with brine room laborer 13:44:25 team present. Fire risk assesment completed (see hard stop sheet for coding). Time Out Conc urred by MD and individual staff in procedure. 13:44:31 Case Start 20 mL 1% XYLOCAINE given in lab by Sp Cueva in Right Groin via Subcutaneous. Ordered by Hammad, 13:44:34 Humayun. 13:45:47 HR=67 bpm, YVZX=479/84 mmhg, QqS8=644.0 %, Resp=20 B/min 13:49:45 Access site was Right Femoral Artery. A INTRODUCER SET, MICROPUNCTURE STIFF FR 5 was advanced into the Fem Art (right) using the Perc utaneous 13:49:54 technique. A SHEATH, FR4 TERUMO (10CM) FR 4 was exchanged in the Fem Art (right). This was necessary in or pia to 13:50:06 accomodate a larger catheter. 13:50:42 HR=66 bpm, ECRS=363/83 mmhg, KuB3=882.0 %, Resp=17 B/min A JL 4.0 INFINITI CATHETER FR 4 was advanced over a wire. OMNIPAQUE, 350 MG, 150ML 150ML was us ed for 13:52:02 injections. Recorded Pressure: Ao, HR=67, Condition=Condition 1 13:53:01 (Aorta) Ao 138/76/100 13:53:17 The LCA was injected and visualized at various angles. OMNIPAQUE, 350 MG, 150ML 150ML used . After removing the current catheter a 3DRC INFINITI CATHETER FR 4 was advanced over a WIRE, 3MM J .035 180CM 13:54:16 180CM. 13:55:43 HR=68 bpm, HODY=553/84 mmhg, YmP5=877.0 %, Resp=14 B/min 13:55:52 The RCA was injected and visualized at various angles. OMNIPAQUE, 350 MG, 150ML 150ML used . After removing the current catheter a PIGTAIL ANG. INFINITI CATHETER FR 4 was advanced over a W MIKE, 3MMJ .035 13:56:18 180CM 180CM. Recorded Pressure: LV, HR=66, Condition=Condition 1 13:58:03 (Left Ventricle) LV 140/2/10 13:58:19 The LV was manually injected with 10 cc's and visualized. OMNIPAQUE, 350 MG, 150ML 150ML us ed. Recorded Pressure: LV, Ao, HR=69, Condition=Condition 1 13:58:29 (Left Ventricle) LV 156/-8/5, (Aorta) Ao 149/74/104 13:59:01 Catheter was removed 13:59:07 Case End (Physician broke scrub) 14:01:19 HR=70 bpm, IKHU=556/84 mmhg, SpO2=99.0 %, Resp=16 B/min 14:05:45 HR=69 bpm, NSIM=855/84 mmhg, OzI3=475.0 %, Resp=16 B/min 14:10:46 HR=73 bpm, KSEU=601/86 mmhg, HhH4=040.0 %, Resp=19 B/min 14:12:06 Sheath removed; pressure applied to access site. 14:12:11 Hemostasis obtained. 14:12:46 Sterile dressing applied to site 14:12:47 No case complications noted. 14:12:48 Cine recording checked. Assessment: Final Case, HR=73 BPM, Rhythm=sr, QFZV=419/86 mmhg, Chest Pain=0 Right Pulses: Kush Ped=3, Femoral=2 14:12:50 Left Pulses: Kush Ped=3, Femoral=1 Neurological: State=Alert, Ox3, SEE Respiration: Resp=19 B/min, AhU5=486 % 14:14:23 Patient moved to bed. 14:14:32 Patient transported to DOCU End Study - Contrast Media Used In Study Contrast Total Opened (mL) Total Used (mL) Total Wasted (mL) Omnipaque 24 24 0 End Study - Maximum Contrast Load Max Contrast Load (mL) 316.7 End Study - Radiation Exposure Fluoro Time Fluoro Dose (mGy) Cine Dose (uGym2) (minutes) 1.7 410 3747 End Study - Sheaths Sheaths Pulled By Sheath Hold Time (min) Adam Morris End Study - Patient Disposition Complications Transferred To Interventional Outcome No Telemetry Bed No attempt made
--- NOTE | 2018-05-22 15:22 | MP ---
cc: Sp Cueva MD,Toby NINA DATE OF OPERATION: 05/22/2018 INDICATIONS FOR CATHETERIZATION: Continued chest pain despite negative nuclear stress test, multiple admissions with chest pain, rule out coronary artery disease. CONSENT: Full informed consent was obtained for our procedure. The risks of , bleeding, myocardial infarction, perforation, aspiration, foreseen and unforeseen complications reviewed. The risk of kidney failure was particularly reviewed, given the need for contrast dye. PROCEDURE: The patient was draped and prepped in usual manner. Right femoral artery was entered using a micropuncture technique with ultrasound with a 4-Polish sheath. Left and right coronary catheters were used to intubate the left and right coronaries; an AL1 catheter, the left ventricle. Multiple angiographic views were carried out. At the end of the catheterization procedure, all catheters and sheath removed. Manual pressure applied until good hemostasis was achieved. The patient was returned to his room in stable condition. FINDINGS: HEMODYNAMICS: Aortic pressure 141/74 with a mean of 104. The left mean pressure was 156 with a left ventricular end diastolic pressure of 5. There was no evidence of a significant gradient. Left ventriculogram revealed global ejection fraction of 60%. There is no evidence of significant mitral regurgitation or mural thrombus. Coronary arteries: Left main was large and free of significant disease. Left anterior descending artery was a large artery. There is evidence of 25% proximal LAD stenosis just after a septal project management it specialist involving the first diagonal branch. The LAD is a large vessel and bifurcated. The circumflex artery is a large artery with a large first obtuse marginal branch. There is a second and third obtuse marginal branches that are small. This is a left dominant system: Right coronary artery was a small, nondominant vessel. CONCLUSION: Normal left ventricular function, normal coronaries. Total contrast used: 24 mL. Plan was to minimize contrast use because of the patient's elevated creatinine at 2.0. The patient was hydrated with saline prior to the heart catheterization. PLAN: The patient will be discharged later today or tomorrow as per Dr. Trevor Morales. MD ANITA Cardozo/sandra/sonia , 02:14 PM , 02:23 PM JYOTI
--- NOTE | 2018-05-22 21:21 | P.DS ---
DS: Providers Date of admission: 05/21/18 12:05 Primary care physician: No Primary Care Physician Consults: 05/20/18 09:55 HUB Only Consult Order Routine Consulting Provider: Kijubi,Insurance 05/20/18 12:49 Consult to Cardiology Routine Consulting Provider: Renita Lopez Does the patient have a Barrel Ribs Solderer who follows them?: Yes Preferred Floor Scraper:: Toby Aguilar Reason for Consultation: Chest pain, history of abnormal myocardial perfusion scan. Notified:: Service Spoke with:: IKER Date Notified:: 05/20/18 Time Notified:: 12:58 Ordering Provider: NICHOLAS Brief History from admission: 52-year-old male with history of hypertension, hyperlipidemia, diabetes mellitus , chronic kidney disease stage III, gastroparesis, abnormal stressin November of this year who follows with Dr. Aguilar. He presents with a 3-month history of progressively worsening intermittent sharp left sided chest pain radiating to left arm. He says that chest pain is worse with deep inspiration as well. He has been getting worse over the past several days, occurring several times per day, lasting for about an hour and a half. this is accompanied by shortness of breath during the chest pain episodes. Patient also notes a several week history of worsening bilateral lower extremity edema DS: Summary Patient was transferred to [facility] for cardiac catheterization. He remained clinically stable, underwent procedure without complication. Left heart catheter revealed normal LV function with normal coronaries, and patient was deemed clinically stable for discharge home and ongoing outpatient follow- up. He is to follow-up with his primary care physician 2-3 days regarding his uncontrolled diabetes and he is also follow-up with cardiology 2-3 days or as directed. Patient drops further chest pain-free. Time Spent with Patient Total time spent providing and/or coordinating discharge services: Quality: VTE Deep Vein Thrombosis/Pulmonary Embolism Present on Admission: No Results Labs on day of discharge: Labs from last 24 hours 05/22/18 05/22/18 05/22/18 14:59 14:21 11:28 WBC RBC Hgb Hct MCV MCH MCHC RDW Plt Count MPV D-Dimer Quant (PE/DVT) 0.33 Sodium Potassium Chloride Carbon Dioxide Anion Gap BUN Creatinine Estimated GFR POC Glucose 103 56 L Random Glucose Calcium Troponin I 05/22/18 05/22/18 05/22/18 08:40 06:10 06:10 WBC 5.5 RBC 5.75 Hgb 12.3 L Hct 41.2 MCV 71.7 L MCH 21.4 L MCHC 29.8 L RDW 14.5 Plt Count 211 MPV 9.8 D-Dimer Quant (PE/DVT) Sodium 141 Potassium 4.2 Chloride 107 Carbon Dioxide 23.7 Anion Gap 10 BUN 38 H Creatinine 2.10 H Estimated GFR 40 L POC Glucose 100 Random Glucose 105 Calcium 8.4 L Troponin I 05/22/18 05/21/18 06:10 21:34 WBC RBC Hgb Hct MCV MCH MCHC RDW Plt Count MPV D-Dimer Quant (PE/DVT) Sodium Potassium Chloride Carbon Dioxide Anion Gap BUN Creatinine Estimated GFR POC Glucose 214 H Random Glucose Calcium Troponin I Less than 0.02 L Impressions ITS Impressions Chest X-Ray 05/19/18 16:19 CONCLUSION: No acute disease Discharge Plan Discharge Disposition Patient Disposition: 01 Discharge Home Discharge Condition Condition: Stable Discharge Order Discharge Orders: Discharge Order (Routine); Ordered 05/22/18 Ordered By: Radha Eckert Cardiology Clear for Discharge (Routine); Ordered 05/22/18 Ordered By: Sp Cueva Discharge Details Anticipated Discharge Date: 05/19/18 Physicians Team ED Provider: Fabian Mallory Primary Care Provider: Primary Care Elizabeth Frias Attending Provider: Radha Eckert Other Providers: [facility],Insurance ; Renita Lopez Rxs /Orders / Referrals /Forms Prescriptions: Continue atorvastatin 80 mg Tablet 80 mg PO HS Qty: 30 RF: 0 aspirin 81 mg Tablet,Delayed Release (Dr/Ec) 81 mg PO DAILY Qty: 30 RF: 0 amlodipine [Norvasc] 10 mg Tablet 10 mg PO DAILY Qty: 30 RF: 0 nitroglycerin [Nitrostat] 0.4 mg Tablet, Sublingual 0.4 mg Sublingual Q5M PRN (Reason: Chest Pain) Qty: 100 RF: 0 insulin lispro [Humalog U-100 Insulin] 100 unit/mL Solution 12 unit SUB-Q TID Qty: 7 RF: 0 metoprolol tartrate 25 mg Tablet 25 mg PO DAILY Qty: 30 RF: 0 insulin detemir U-100 [Levemir U-100 Insulin] 100 unit/mL Solution 36 unit SUB-Q BID Qty: 7 RF: 0 gabapentin 300 mg Capsule 300 mg PO BID RF: 0 Referrals: Renita Lopez MD [Physician] - See Instructions ( Please call your pcp and garage door installer office to book the appointment to be seen within [2-3 days].) Primary Care Elizabeth Frias [Primary Care Provider] - See Instructions Discharge Instructions Patient Printed Instructions: Chest Pain (ED), Heart Healthy Diet (DC), Cigarette Smoking and Your Health (GEN), How To Wash Your Hands (DC), Heart Catheterization (DC) Additional Instructions: FOLLOW ALL DISCHARGE INSTRUCTIONS. CONTINUE ALL PREVIOUSLY PRESCRIBED MEDICATIONS. CALL FOR FOLLOW UP APPOINTMENT. RETURN TO ER FOR ANY NEW OR ACUTE SYMPTOMS. Status ED Status: Left Department Discharge Information Discharge Date/Time: 05/22/18 18:22
--- NOTE | 2018-05-23 14:51 | ECG ---
Date Performed: 05/22/2018 Time Performed: 05:25:44 PTAGE: 52 years EKG: SINUS BRADYCARDIA BORDERLINE LEFT AXIS DEVIATION LEFT VENTRICULAR HYPERTROPHY AND ST-T [place] GE ABNORMAL ECG Since the PREVIOUS TRACING , no significant change noted PREVIOUS TRACIN05/19/2018 21.31 DOCTOR: Ryan Tovar Interpretating Date/Time 05/23/2018 14:49:53
== END 2018-05-22 18:22 | disposition home or self-care (01) | DRG 204 ==
LOC: PHEDA 15:38 → PHED 15:38 → PH3 18:43 → HDIC 05-22 11:13
PROVIDERS: ADMIT Internal Medicine; ATTEND Internal Medicine
CPT/HCPCS: 71010; 71045; 80048; 80053; 82550; 82948; 82962; 83520; 83690; 83880; 84484; 85025; 85027; 85379; 85610; 90774; 90775; 90776; 93005; 93458; 96374; 96375; 96376; 99152; 99153; 99285; C1769; C1893; C8952; G0378; J1644; J1815; J2250; J2270; J2765; J3010; J7030; Q9967